=== PATIENT | female | born 1945 | race Caucasian/White ===

== ENCOUNTER 2016-05-09 10:57 | Emergency (ER) | payer MEDICARE, OTHER ==
[~2016-05-09] VITALS: Ht 157.5 cm; Wt 116.9 kg
[~2016-05-09 10:57] MED LIST: AMT100 PO; CHOL5000 PO; CHRO500T5 PO; CINN500T PO; SYN125 PO; [UNRECOGNIZED DRUG - CODE] PO
[2016-05-09 11:02] VITALS: TEMP 36.6; Ht 157.5 cm; Wt 116.9 kg
[2016-05-09 11:25] VITALS: O2SAT 96
[2016-05-09] MEDS ORDERED: CHOL1TAB PO (12:04)
[2016-05-09 12:16] LABS: BASO % 0.2 %; BASO ABS # 0.02 K/uL (0-0.2); COMPLETE YES; EOS % 2.6 %; HEMATOCRIT 48.6 % (37-47); IG% 0.3 %; LYMPH % 29.9 %; LYMPH ABS # 2.83 K/uL (1.2-3.4); MEAN CELL VOLUME 89.2 fL (80-100); MEAN CORPUSCULAR HGB CONC 32.5 g/dl (32-36); MEAN PLATELET VOLUME 11.2 fL (7.4-10.4); MONO % 5.7 %; NEUT % 61.3 %; PLATELET COUNT 213 K/uL (130-400); RED BLOOD COUNT 5.45 M/uL (4.2-5.4); WHITE BLOOD COUNT 9.47 K/uL (4.8-10.8)
[2016-05-09 12:51] LABS: ALKALINE PHOSPHATASE 143 U/L (45-117); ALT/SGPT 67 U/L (12-78); BLOOD UREA NITROGEN 6 mg/dl (7-18); BUN/CREATININE RATIO 7.4 (10-20); CALCIUM 9.2 mg/dl (8.5-10.1); CARBON DIOXIDE 29 mmol/L (21-32); CHLORIDE 107 mmol/L (98-107); CREATININE 0.83 mg/dl (0.60-1.20); GLUCOSE 137 mg/dl (70-99); SODIUM 145 mmol/L (136-145)
--- NOTE | 2016-05-09 13:03 | DIAGNOSTIC IMAGING REPORT ---
CHEST 2 VIEWS ROUTINE CLINICAL HISTORY: Cough COMPARISON STUDY: 04/27/2013 FINDINGS: The heart is at the upper limits of normal in size. There is mild interstitial thickening a finding which may be in part accentuated due to the patient's large body habitus. There are no pleural effusions. There is no overt failure. Slight indistinctness left heart border remains unchanged the prior study and is likely secondary to a prominent fat pad.[ IMPRESSION: Mild chronic interstitial thickening. No evidence of lobar consolidation Electronically signed by: Josue Domingo M.D. 05/09/2016 1:01 PM Dictated Date/Time: 05/09/2016 1:00 PM
--- NOTE | 2016-05-09 13:27 | DIAGNOSTIC IMAGING REPORT ---
BILATERAL LOWER EXTREMITY VENOUS DOPPLER HISTORY: Pain. Edema. leg swelling eval for dv COMPARISON STUDY: 04/27/2013 FINDINGS: There is normal compressibility, flow, and augmentation within the bilateral lower extremity deep venous systems. IMPRESSION: No DVT within the right or left lower extremity. Electronically signed by: Pacheco Calderón M.D. 05/09/2016 1:25 PM Dictated Date/Time: 05/09/2016 1:22 PM
[2016-05-09 14:06] LABS: POTASSIUM 3.7 mmol/L (3.5-5.1)
[2016-05-09 14:33] LABS: PARTIAL THROMBOPLASTIN RATIO 1.1; PROTHROMBIN TIME (PATIENT) 10.6 SECONDS (9.0-12.0)
--- NOTE | 2016-05-09 14:57 | DIAGNOSTIC IMAGING REPORT ---
CT ANGIOGRAM OF THE CHEST CLINICAL HISTORY: Shortness of breath. COMPARISON STUDY: 04/28/2013 TECHNIQUE: Following the IV administration of 93 mL of Optiray-320, CT angiogram of the thorax was performed from the thoracic inlet to the lung bases utilizing the pulmonary embolus protocol. Images are reviewed in the axial, sagittal, and coronal planes. IV contrast was administered without complication. MIP imaging was performed. CT DOSE: 617.74 mGycm FINDINGS: Mediastinal and left hilar lymph nodes are the upper limits of normal in size. Left axillary lymph nodes are at the upper limits of normal in size. There was no evidence of thoracic aortic dilatation. There were no pulmonary artery filling defects to indicate acute pulmonary embolism. No pleural effusions are visualized. There is no evidence of focal pulmonary consolidation. There is a stable 3 mm right lower lobe pulmonary nodule. There is mild hepatic steatosis. IMPRESSION: 1. No evidence of acute pulmonary embolism. 2. No evidence of focal pulmonary consolidation. Electronically signed by: Josue Domingo M.D. 05/09/2016 2:56 PM Dictated Date/Time: 05/09/2016 2:42 PM
[2016-05-09] MEDS ORDERED: CEPH500C PO (15:16)
[2016-05-09 15:24] VITALS: BP 190/87; PULSE 72; O2SAT 94
--- NOTE | 2016-05-09 17:21 | EMERGENCY ROOM VISIT NOTE ---
History Report prepared by Don[place]on: Margarita Lopez Under the Supervision of: Dr. Lane Palacios M.D. First contact with patient: 11:44 Chief Complaint: SWELLING TO EXTREMITY Stated Complaint: SWELLING TO FEET/LEGS, ANXIETY ATTACK, NOT VOIDING Nursing Triage Summary: Relates that this is her second bout of bronchitis History of Present Illness The patient is a 71 year old female who presents to the Emergency Room with complaints of worsening bilateral lower extremity swelling that began a couple of days ago. The patient notes that she has some bilateral leg swelling at baseline, but it has been worse for the past 2 days. She states that she has been in the sitting position more than usual for the past few days and has not gotten much of a chance to elevate her legs. In addition to the swelling, she complains of circumferential pain from her feet extending up to her mid thigh. Since January, she has had two bouts of bronchitis and has had a lingering productive cough with shortness of breath. She was on Zithromax 3 or 4 weeks ago. Her shortness of breath have not gotten any worse in the past several days. The patient has a history of a PE 3 years ago after she broke her left ankle. She has had some baseline redness around her ankles since that time. She was on anticoagulants for 8 months but is not on anything currently. This morning when she woke up, she had an anxiety attack that lasted about 2 hours while she was trying to rest before resolving. Currently, she is not feeling anxious, depressed, or suicidal. Denies fever, chest pain, or other complaints. She does not have a history of heart failure or heart disease. The patient called Dr. Palomares's office today and was referred to the ED due to her symptoms. Source of History: patient Onset: a couple days ago Position: leg (bilateral) Quality: other (swelling) Timing: worsening Modifying Factors (Worsening): other (sitting) Associated Symptoms: + SOB, + cough, No chest pain, No fevers Note: Other symptoms: bilateral leg pain, anxiety attack (resolved) Review of Systems See HPI for pertinent positives & negatives. A total of 10 systems reviewed and were otherwise negative. Past Medical & Surgical Medical Problems: (1) Fibromyalgia (2) PE (pulmonary embolism) Surgical Problems: (1) H/O tubal ligation (2) History of cholecystectomy Family History Diabetes mellitus FHx: gallbladder disease Social History Smoking Status: Never Smoker Marital Status: Housing Status: lives with significant other Occupation Status: employed Current/Historical Medications Scheduled Amitriptyline Hcl (Elavil *), 100 MG PO HS Cephalexin Monohydrate (Keflex), 500 MG PO QID Cholecalciferol (D-3-5), 1 CAP PO HS Cholecalciferol (Vitamin D-3), Unknown Dose PO QPM Chromium Picolinate (Chromium Picolinate), 1 TAB PO BID Cinnamon (Cinnamon), 1,000 MG PO HS Glucosamine Hcl-Methylsulfonyl (Sm Glucosamine Hcl & Msm), 2 TAB PO BID Levothyroxine Sodium (Synthroid), 1 TAB PO QAM Allergies Coded Allergies: Benzalkonium Chloride (Verified Allergy, Unknown, CONTACT SWELLING/PAIN, ) Codeine (Verified Allergy, Unknown, GALLBLADDER ATTACK LIKE SYMPTOMS, 05/09) Dextromethorphan (Verified Allergy, Unknown, ITCHY, 05/09/16) Latex (Verified Allergy, Unknown, CONTACT DERMATITIS/WELTS, 05/09/16) Nickel (Verified Allergy, Unknown, BOILS, 05/09/16) PATIENT REPORTS ALLERGIC TO A LOT OF METALS - BOILS REACTION Tetanus Toxoid (Verified Allergy, Unknown, UNCONSCIOUSNESS, 05/09/16) Thimerosal (Verified Allergy, Unknown, EYE SWELLING/PAIN, 05/09/16) Perservative in flu vaccines and eye drops Morphine and Related (Verified Adverse Reaction, Intermediate, PAIN/ PROJECTILE VOMITTING, 05/09/16) Influenza Vaccines (Verified Adverse Reaction, Unknown, Avoids secondary to thimerosal allergy, 05/09/16) Promethazine (Verified Adverse Reaction, Unknown, CONFUSION/DISORIENTED, ) Silver Sulfadiazine (Verified Adverse Reaction, Unknown, BOILS, 05/09/16) Sulfa Drugs (Verified Adverse Reaction, Unknown, BLISTERS?, 05/09/16) Uncoded Allergies: Carmen (Allergy, Unknown, Boils, 01/10/16) Surgical carmen Physical Exam Vital Signs Date Time Temp Pulse Resp B/P Pulse Ox O2 Delivery O2 Flow Rate FiO2 05/09/16 15:24 72 18 190/87 94 Room Air 05/09/16 14:17 72 05/09/16 14:00 72 20 202/86 91 Room Air 05/09/16 12:00 75 20 169/83 92 Room Air 05/09/16 11:29 85 05/09/16 11:27 78 22 189/93 93 Room Air 05/09/16 11:25 94 Room Air 05/09/16 11:25 96 Room Air 05/09/16 11:02 36.6 78 20 186/82 91 Room Air Physical Exam Constitutional: Vital signs reviewed. Eyes: Pupils are equal round reactive to light. Conjunctiva are noninjected. ENT: Pharynx is clear without erythema or exudate. Mucous membranes are moist. Neck supple without meningeal signs. Respiratory: Clear to auscultation bilaterally. Breath sounds are equal bilaterally. Cardiovascular: Regular rate and rhythm. No rubs or gallops. GI: Soft, nondistended and nontender. Bowel sounds are present. Musculoskeletal: Bilateral lower extremity edema. Normal capillary refill. Chronic discoloration of the ankles. No significant tenderness. Increased warmth to the ankles. Integumentary: No cyanosis. Neurological: The patient is awake and alert. No focal deficits. Psychiatric: Normal affect. Medical Decision & Procedures ER Provider Diagnostic Interpretation: Radiology results as stated below per my review and the radiologist's interpretation: CHEST 2 VIEWS ROUTINE CLINICAL HISTORY: Cough COMPARISON STUDY: 04/27/2013 FINDINGS: The heart is at the upper limits of normal in size. There is mild interstitial thickening a finding which may be in part accentuated due to the patient's large body habitus. There are no pleural effusions. There is no overt failure. Slight indistinctness left heart border remains unchanged the prior study and is likely secondary to a prominent fat pad.[ IMPRESSION: Mild chronic interstitial thickening. No evidence of lobar consolidation Electronically signed by: Josue Domingo M.D. 05/09/2016 1:01 PM Dictated Date/Time: 05/09/2016 1:00 PM BILATERAL LOWER EXTREMITY VENOUS DOPPLER HISTORY: Pain. Edema. leg swelling eval for dv COMPARISON STUDY: 04/27/2013 FINDINGS: There is normal compressibility, flow, and augmentation within the bilateral lower extremity deep venous systems. IMPRESSION: No DVT within the right or left lower extremity. Electronically signed by: Pacheco Calderón M.D. 05/09/2016 1:25 PM Dictated Date/Time: 05/09/2016 1:[address] ANGIOGRAM OF THE CHEST CLINICAL HISTORY: Shortness of breath. COMPARISON STUDY: 04/28/2013 TECHNIQUE: Following the IV administration of 93 mL of Optiray-320, CT angiogram of the thorax was performed from the thoracic inlet to the lung bases utilizing the pulmonary embolus protocol. Images are reviewed in the axial, sagittal, and coronal planes. IV contrast was administered without complication. MIP imaging was performed. CT DOSE: 617.74 mGycm FINDINGS: Mediastinal and left hilar lymph nodes are the upper limits of normal in size. Left axillary lymph nodes are at the upper limits of normal in size. There was no evidence of thoracic aortic dilatation. There were no pulmonary artery filling defects to indicate acute pulmonary embolism. No pleural effusions are visualized. There is no evidence of focal pulmonary consolidation. There is a stable 3 mm right lower lobe pulmonary nodule. There is mild hepatic steatosis. IMPRESSION: 1. No evidence of acute pulmonary embolism. 2. No evidence of focal pulmonary consolidation. Electronically signed by: Josue Domingo M.D. 05/09/2016 2:56 PM Dictated Date/Time: 05/09/2016 2:42 PM Laboratory Results 05/09/16 11:45 Red Blood Count 5.45, Mean Corpuscular Volume 89.2, Mean Corpuscular Hemoglobin 29.0, Mean Corpuscular Hemoglobin Concent 32.5, Mean Platelet Volume 11.2, Neutrophils (%) (Auto) 61.3, Lymphocytes (%) (Auto) 29.9, Monocytes (%) (Auto) 5.7, Eosinophils (%) (Auto) 2.6, Basophils (%) (Auto) 0.2, Neutrophils # (Auto) 5.80, Lymphocytes # (Auto) 2.83, Monocytes # (Auto) 0.54, Eosinophils # (Auto) 0.25, Basophils # (Auto) 0.02 05/09/16 11:45 05/09/16 13:40 Test 05/09/16 11:45 05/09/16 13:40 05/09/16 14:15 White Blood Count 9.47 K/uL (4.8-10.8) Red Blood Count 5.45 M/uL (4.2-5.4) Hemoglobin 15.8 g/dL (12.0-16.0) Hematocrit 48.6 % (37-47) Mean Corpuscular Volume 89.2 fL (80-100) Mean Corpuscular Hemoglobin 29.0 pg (25-34) Mean Corpuscular Hemoglobin Concent 32.5 g/dl (32-36) Platelet Count 213 K/uL (130-400) Mean Platelet Volume 11.2 fL (7.4-10.4) Neutrophils (%) (Auto) 61.3 % Lymphocytes (%) (Auto) 29.9 % Monocytes (%) (Auto) 5.7 % Eosinophils (%) (Auto) 2.6 % Basophils (%) (Auto) 0.2 % Neutrophils # (Auto) 5.80 K/uL (1.4-6.5) Lymphocytes # (Auto) 2.83 K/uL (1.2-3.4) Monocytes # (Auto) 0.54 K/uL (0.11-0.59) Eosinophils # (Auto) 0.25 K/uL (0-0.5) Basophils # (Auto) 0.02 K/uL (0-0.2) RDW Standard Deviation 46.9 fL (36.4-46.3) RDW Coefficient of Variation 14.4 % (11.5-14.5) Immature Granulocyte % (Auto) 0.3 % Immature Granulocyte # (Auto) 0.03 K/uL (0.00-0.02) Anion Gap 9.0 mmol/L (3-11) Est Creatinine Clear Calc Drug Dose 76.5 ml/min Estimated GFR () 82.8 Estimated GFR (Non- 71.4 BUN/Creatinine Ratio 7.4 (10-20) Calcium Level 9.2 mg/dl (8.5-10.1) Total Bilirubin 0.4 mg/dl (0.2-1) Alanine Aminotransferase (ALT/SGPT) 67 U/L (12-78) Alkaline Phosphatase 143 U/L (45-117) Troponin I < 0.015 ng/ml (0-0.045) Total Protein 7.2 gm/dl (6.4-8.2) Albumin 3.2 gm/dl (3.4-5.0) Direct Bilirubin 0.1 mg/dl (0-0.2) Aspartate Amino Transf (AST/SGOT) 54 U/L (15-37) Prothrombin Time 10.6 SECONDS (9.0-12.0) Prothromb Time International Ratio 1.0 (0.9-1.1) Activated Partial Thromboplast Time 27.3 SECONDS (21.0-31.0) Partial Thromboplastin Ratio 1.1 Laboratory results as reviewed by me. ECG Indication: SOB/dyspnea Rate (beats per minute): 74 Rhythm: normal sinus Findings: no acute ischemic change, no ectopy ED Course 1148: The patient was evaluated in room A11. A complete history and physical exam was performed. 1514: Upon reevaluation, the patient was resting comfortably. I discussed tonight's findings with the patient. She verbalized agreement of the treatment plan. The patient was discharged home. Medical Decision This is a 71-year-old female who presents with swelling in her legs, anxiety and some shortness of breath. Differential diagnosis includes dependent edema, CHF, anemia, DVT, pulmonary embolism, bronchitis, pneumonia. I did perform a limited focused review of portions of the patient's old chart on the electronic medical record. She had blood work on 05/03 which showed a hemoglobin of 16 and slight elevation of LVTs. I did evaluate the patient as noted above. The patient is presenting with increased swelling in her legs. She has a history of swelling to the legs but states he got worse after she was sitting down for the past 2 days doing her taxes. She also complains of some pain around her ankles. She does have some increased warmth as well as erythema to the ankles but she states that she normally has chronic discoloration to the ankles and the erythema is not new. She complains of shortness of breath but states that she has had bronchitis for months and feels that the shortness of breath is from that. She denies any chest pain. She did have an anxiety attack earlier but states that has resolved. IV access was established. The patient was placed on a continuous lead programmer. I did order and personally review the patient's 12-lead EKG and chest x-ray as described above. I did order and review the patient's blood work as noted in the electronic medical record. Troponin is negative. I did order Doppler ultrasounds of lower extremities. There is no evidence of DVT. Due to her history of prior PE and her shortness of breath, I did order a CT of the chest. I did review the images myself as well as the radiology report as described above. There is no evidence of pulmonary embolism. I did discuss the test results with the patient. I did recommend elevation of the legs. She states she cannot use compression stockings because of her latex allergy. I did advise she follow closely with her doctor within 48 hours for recheck. She may require diuretic at a later point if her swelling does not decrease. She was also given a prescription for Keflex for possible cellulitis to her legs. Although she stated that the discoloration to her legs was chronic, there was definitely increased warmth to that area. She was discharged in good condition. Impression Primary Impression: Lower extremity edema Additional Impressions: Bronchitis Lower extremity cellulitis Scribe Attestation The scribe's documentation has been prepared under my direct and personally reviewed by me in its entirety. I confirm that the note above accurately reflects all work, treatment, procedures, and medical decision making performed by me. Departure Information Dispostion Home / Self-Care Prescriptions Cephalexin Monohydrate (Keflex) 500 Mg Cap 500 MG PO QID, #28 CAP Prov: Lane Palacios M.D. 05/09/16 Referrals Eddie Palomares M.D.([facility]) (PCP) Patient Instructions ED Leg Swelling Bilateral, My [facility] Additional Instructions You have been examined and treated today on an emergency basis only. This is not a substitute for, or an effort to provide, complete comprehensive medical care. It is impossible to recognize and treat all injuries or illnesses in a single emergency department visit. It is therefore important that you follow up closely with your physician in 48 hours. Call as soon as possible for an appointment. Return for worsening symptoms or if you develop fever, vomiting, chest pain or any other concerning symptoms. Problem Qualifiers Primary Impression: Lower extremity edema Laterality: bilateral Qualified Codes: R60.0 - Localized edema Additional Impressions: Lower extremity cellulitis Laterality: unspecified laterality Qualified Codes: L03.119 - Cellulitis of unspecified part of limb
[2016-07-15] MEDS ORDERED: MTR600X PO (11:21)
== END 2016-05-09 15:37 | disposition home or self-care (01) ==
LOC: C.EDB 11:00 → C.EDA 15:37
DX: R60.0 Localized edema (principal); J40 Bronchitis, not specified as acute or chronic; L03.119 Cellulitis of unspecified part of limb; M79.7 Fibromyalgia; Z86.711 Personal history of pulmonary embolism; Z83.3 Family history of diabetes mellitus

== ENCOUNTER 2016-07-14 05:29 | Observation (INO) | payer MEDICARE, OTHER ==
[2016-05-03 12:52] VITALS: BMI 46.0
--- NOTE | 2016-05-03 13:34 | PAT Medication Instructions ---
Service Date May 03, 2016. Current Home Medication List Amitriptyline Hcl (Elavil *), 100 MG PO HS Cholecalciferol (D-3-5), 1 CAP PO HS Chromium Picolinate (Chromium Picolinate), 1 TAB PO BID Cinnamon (Cinnamon), 1,000 MG PO HS Glucosamine Hcl-Methylsulfonyl (Sm Glucosamine Hcl & Msm), 2 TAB PO BID Levothyroxine Sodium (Synthroid), 1 TAB PO QAM Medication Instructions For Your Scheduled Surgery - Hold the following medications starting 05/04/16: Cinnamon (Cinnamon), 1,000 MG PO HS Glucosamine Hcl-Methylsulfonyl (Sm Glucosamine Hcl & Msm), 2 TAB PO BID - Hold the following medications the morning of surgery: Chromium Picolinate (Chromium Picolinate), 1 TAB PO BID - Take the following medications the morning of surgery with a sip of water: Levothyroxine Sodium (Synthroid), 1 TAB PO QAM - Take the following medications as scheduled the night before surgery: Amitriptyline Hcl (Elavil *), 100 MG PO HS Cholecalciferol (D-3-5), 1 CAP PO HS Chromium Picolinate (Chromium Picolinate), 1 TAB PO BID If you have any questions please call us at [phone] (Roberta Mcdonald PA-C) or [phone] or [phone]
[2016-05-03 14:25] LABS: BASO % 0.2 %; BASO ABS # 0.02 K/uL (0-0.2); COMPLETE YES; EOS % 2.8 %; HEMATOCRIT 49.1 % (37-47); IG% 0.3 %; LYMPH % 33.8 %; LYMPH ABS # 3.34 K/uL (1.2-3.4); MEAN CORPUSCULAR HEMOGLOBIN 29.2 pg (25-34); MEAN CORPUSCULAR HGB CONC 33.2 g/dl (32-36); MEAN PLATELET VOLUME 11.3 fL (7.4-10.4); MONO % 6.6 %; NEUT % 56.3 %; PLATELET COUNT 192 K/uL (130-400); RED BLOOD COUNT 5.58 M/uL (4.2-5.4); WHITE BLOOD COUNT 9.88 K/uL (4.8-10.8)
[2016-05-03 14:46] LABS: BUN/CREATININE RATIO 12.2 (10-20); CALCIUM 9.5 mg/dl (8.5-10.1); CREATININE 0.78 mg/dl (0.60-1.20); POTASSIUM 3.7 mmol/L (3.5-5.1)
[2016-05-03 14:49] LABS: ALB/GLOB RATIO 0.9 (0.9-2)
[2016-06-21 14:04] VITALS: BMI 47.0
--- NOTE | 2016-06-21 15:13 | PAT Medication Instructions ---
Service Date June 21, 2016. Current Home Medication List Amitriptyline Hcl (Elavil *), 100 MG PO HS Cholecalciferol (D-3-5), 1 CAP PO HS Chromium Picolinate (Chromium Picolinate), 1 TAB PO BID Cinnamon (Cinnamon), 1,000 MG PO HS Glucosamine Hcl-Methylsulfonyl (Sm Glucosamine Hcl & Msm), 2 TAB PO QPM Levothyroxine Sodium (Synthroid), 1 TAB PO QAM Medication Instructions For Your Scheduled Surgery - Hold the following medications 2 weeks prior to surgery: Cinnamon (Cinnamon), 1,000 MG PO HS Glucosamine Hcl-Methylsulfonyl (Sm Glucosamine Hcl & Msm), 2 TAB PO QPM - Hold the following medications the morning of surgery: Chromium Picolinate (Chromium Picolinate), 1 TAB PO BID - Take the following medications the morning of surgery with a sip of water: Levothyroxine Sodium (Synthroid), 1 TAB PO QAM - Take the following medications as scheduled the night before surgery: Amitriptyline Hcl (Elavil *), 100 MG PO HS Cholecalciferol (D-3-5), 1 CAP PO HS Chromium Picolinate (Chromium Picolinate), 1 TAB PO BID If you have any questions please call us at [phone] (Roberta Mcdonald PA-C) or [phone] or [phone]
[2016-06-21 15:18] LABS: BASO % 0.2 %; BASO ABS # 0.02 K/uL (0-0.2); COMPLETE YES; EOS % 3.3 %; HEMATOCRIT 49.8 % (37-47); IG% 0.3 %; LYMPH % 35.9 %; LYMPH ABS # 3.25 K/uL (1.2-3.4); MEAN CELL VOLUME 90.1 fL (80-100); MEAN CORPUSCULAR HEMOGLOBIN 29.3 pg (25-34); MEAN CORPUSCULAR HGB CONC 32.5 g/dl (32-36); MONO % 5.2 %; NEUT % 55.1 %; PLATELET COUNT 192 K/uL (130-400); RED BLOOD COUNT 5.53 M/uL (4.2-5.4); WHITE BLOOD COUNT 9.06 K/uL (4.8-10.8)
[2016-06-21 15:25] LABS: BUN/CREATININE RATIO 12.3 (10-20); CALCIUM 9.6 mg/dl (8.5-10.1); CREATININE 0.78 mg/dl (0.60-1.20); POTASSIUM 4.1 mmol/L (3.5-5.1)
[2016-06-21 15:27] LABS: ALB/GLOB RATIO 0.9 (0.9-2)
[2016-07-14] VITALS (10 sets, daily range): BP systolic 118–202; BP diastolic 65–95; PULSE 58–93; TEMP 36.2–36.9; O2SAT 88–98; Ht 154.9 cm; Wt 113.8 kg
[~2016-07-14] VITALS: Ht 154.9 cm; Wt 113.8 kg
[~2016-07-14 05:29] MED LIST changes: +CEFAZOLIN 3000 MG/65 ML D5W 50 ML IV SCH; +ENOXAPARIN 40 MG/0.4 ML SYR SQ SCH; +LACTATED RINGER'S 1000ML 1,000 ML IV SCH
[2016-07-14] MEDS ORDERED: CEFAZOLIN 3000 MG/65 ML D5W 50 ML IV SCH (06:00)
[2016-07-14] MEDS ORDERED: LACTATED RINGER'S 1000ML 1,000 ML IV SCH ×3 (06:00→10:43)
[2016-07-14] MEDS ORDERED: ENOXAPARIN 40 MG/0.4 ML SYR SQ SCH (06:00)
[2016-07-14] MEDS ORDERED: CHOL1000 PO (06:01)
[2016-07-14] MEDS ORDERED: ROCURONIUM BROMIDE 10 MG/ML 5 ML VIAL ONE ×2 (06:36→07:41)
[2016-07-14] MEDS ORDERED: NEOSTIGMINE METHYLSULFATE 5 MG/5 ML SYR ONE (06:36)
[2016-07-14] MEDS ORDERED: ONDANSETRON INJ 2 MG/ML 2 ML VIAL ONE (06:36)
[2016-07-14] MEDS ORDERED: LIDOCAINE HCL 2% 2 ML VIAL (20MG/ML) ONE (06:36)
[2016-07-14] MEDS ORDERED: PROPOFOL IV EMULSION 10 MG/ML 20 ML VIAL IV ONE ×2 (06:36→07:41)
[2016-07-14] MEDS ORDERED: DEXAMETHASONE SOD INJ 4 MG/ML VIAL ONE (06:36)
[2016-07-14] MEDS ORDERED: GLYCOPYRROLATE INJ 0.2 MG/ML VIAL ONE ×2 (06:36→06:46)
[2016-07-14] MEDS ORDERED: FENTANYL CITRATE INJ 50 MCG/1 ML 2 ML VIAL ONE ×2 (06:37→11:06)
[2016-07-14] MEDS ORDERED: MIDAZOLAM HCL 1 MG/ML 2ML VIAL ONE (06:37)
--- NOTE | 2016-07-14 06:46 | History & Physical Bridge Note ---
H&P Re-Evaluation Bridge Note: I have examined the patient, reviewed the History & Physical and in the interval since the performance of the History & Physical I have noted the following changes of clinical significance: No changes noted
[2016-07-14] MEDS ORDERED: HYDROmorphone INJ 2 MG/ML SYR/VIAL ONE (06:47)
[2016-07-14] MEDS ORDERED: MINERAL OIL LIGHT 10 ML BTL ONE (07:00)
[2016-07-14] MEDS ORDERED: LIDOCAINE HCL 1% 20 ML VIAL ONE (07:00)
[2016-07-14] MEDS ORDERED: METHYLENE BLUE 0.5% 10 ML VIAL ONE ×2 (07:00→11:10)
[2016-07-14] MEDS ORDERED: EpHEDrine SULFATE 50MG/5ML SYR ONE (08:19)
[2016-07-14] MEDS ORDERED: ONDANSETRON INJ 2 MG/ML 2 ML VIAL IV PRN ×2 (08:45→10:45)
[2016-07-14] MEDS ORDERED: HYDROmorphone INJ 2 MG/ML SYR/VIAL IV PRN (08:45)
[2016-07-14] MEDS ORDERED: KETOROLAC TROMETHAMINE 30 MG/ML VIAL IV. PRN (08:45)
[2016-07-14] MEDS ORDERED: ATROPINE SULFATE 0.1 MG/ML 5ML SYR IV PRN (08:45)
[2016-07-14] MEDS ORDERED: LABETALOL HCL IV 5 MG/ML 20ML IV PRN (08:45)
[2016-07-14] MEDS ORDERED: ALBUTEROL HFA INHALER 8.5 GM INH ONE (09:44)
[2016-07-14] MEDS ORDERED: ACETAMINOPHEN 325 MG TAB PO PRN (10:45)
[2016-07-14] MEDS ORDERED: ZOLPIDEM TARTRATE 5 MG TAB PO PRN (10:45)
[2016-07-14] MEDS ORDERED: MAGNESIUM HYDROXIDE SUSP 30 ML UDC PO PRN (10:45)
[2016-07-14] MEDS ORDERED: BISACODYL 10 MG SUPP PR PRN (10:45)
[2016-07-14] MEDS ORDERED: KETOROLAC TROMETHAMINE 30 MG/ML VIAL ONE (10:57)
--- NOTE | 2016-07-14 11:19 | Anesthesiology Progress Note ---
Anesthesia Post Op Note Date & Time July 14, 2016 at 11:19 Vital Signs Pain Intensity: 4 Vital Signs Past 12 Hours Date Time Temp Pulse Resp B/P Pulse Ox O2 Delivery O2 Flow Rate FiO2 07/14/16 11:00 60 10 153/75 93 Nasal Cannula 4 07/14/16 10:50 65 10 149/74 96 Nasal Cannula 4 07/14/16 10:40 76 12 149/75 94 Mask 10 07/14/16 10:30 75 15 151/72 96 Mask 10 07/14/16 10:22 36.6 82 16 138/64 97 Mask 10 07/14/16 05:50 36.9 77 20 202/95 91 Room Air Notes Mental Status: alert / awake / arousable, participated in evaluation Pt Amnestic to Procedure: Yes Nausea / Vomiting: adequately controlled Pain: adequately controlled Airway Patency, RR, SpO2: stable & adequate BP & HR: stable & adequate Hydration State: stable & adequate Anesthetic Complications: no major complications apparent
[2016-07-14] MEDS ORDERED: IV FLUIDS COMPLETED PRN (11:30)
[2016-07-14] MEDS: IBUPROFEN 600 MG TAB PO PRN ×2 (12:57→20:06)
--- NOTE | 2016-07-14 14:15 | [facility] Post Operative Brief Note ---
Immediate Operative Summary Operative Date July 14, 2016. Pre-Operative Diagnosis Atypical Endometrial Hyperplasia Post-Operative Diagnosis Atypical Endometrial Hyperplasia Morbid obesity Procedure(s) Performed Total Laparoscopic Hysterectomy with Bilateral Salpingo-oophorectomy and Cystoscopy Surgeon Dr. Lacy Munoz Datastage Architect Surgeon(s) Dr. Foster Stahl Estimated Blood Loss 60ml Findings dictated Fluids (cc crystalloids) 1200 Specimens A. Cervix and Uterus B. Left Fallopian Tube and Ovary C. Right Fallopian Tube and Ovary Drains starr catth Anesthesia GET Complication(s) None Disposition Recovery Room / PACU
[2016-07-14] MEDS: SIMETHICONE 80 MG CHEW PO PRN (20:07)
[2016-07-14 20:52] LABS: HEMATOCRIT 43.6 % (37-47)
[2016-07-14] MEDS ORDERED: AMITRIPTYLINE HCL 100 MG TAB PO SCH (21:00)
[2016-07-14] MEDS ORDERED: LEVOTHYROXINE 125 MCG TAB PO SCH (21:00)
[2016-07-14] MEDS: DOCUSATE SODIUM 100 MG CAP PO SCH (21:55)
[2016-07-15 03:50] VITALS: BP 125/72; PULSE 67; TEMP 36.6; O2SAT 83; O2SAT 89; O2SAT 93
[2016-07-15 06:25] LABS: BASO % 0.1 %; BASO ABS # 0.01 K/uL (0-0.2); COMPLETE YES; HEMATOCRIT 46.4 % (37-47); IG% 0.3 %; LYMPH % 15.3 %; MEAN CELL VOLUME 88.9 fL (80-100); MEAN CORPUSCULAR HEMOGLOBIN 28.4 pg (25-34); MEAN CORPUSCULAR HGB CONC 31.9 g/dl (32-36); MEAN PLATELET VOLUME 10.8 fL (7.4-10.4); MONO % 5.7 %; NEUT % 78.6 %; PLATELET COUNT 232 K/uL (130-400); RED BLOOD COUNT 5.22 M/uL (4.2-5.4); WHITE BLOOD COUNT 15.72 K/uL (4.8-10.8)
[2016-07-15 06:55] LABS: CALCIUM 8.7 mg/dl (8.5-10.1); CREATININE 0.88 mg/dl (0.60-1.20); POTASSIUM 4.4 mmol/L (3.5-5.1)
[2016-07-15 07:45] VITALS: BP 124/61; PULSE 61; TEMP 36.6; O2SAT 93
[2016-07-15] MEDS ORDERED: ENOXAPARIN 40 MG/0.4 ML SYR SQ SCH (09:00)
[2016-07-15] MEDS: SIMETHICONE 80 MG CHEW PO PRN (09:15)
[2016-07-15] MEDS: DOCUSATE SODIUM 100 MG CAP PO SCH (09:15)
--- NOTE | 2016-07-15 11:20 | Surgery Progress Note ---
Surgery Progress Note Date of Service July 15, 2016. 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 Confirmed by nurse Objective Vital Signs: Date Time Temp Pulse Resp B/P Pulse Ox O2 Delivery O2 Flow Rate FiO2 07/15/16 07:45 36.6 61 20 124/61 93 Room Air 07/15/16 07:45 93 Room Air 07/15/16 03:50 93 Nasal Cannula 2.0 07/15/16 03:50 89 Room Air 07/15/16 03:50 36.6 67 16 125/72 83 Room Air 07/14/16 23:20 36.9 72 18 126/76 91 Room Air 07/14/16 23:20 Room Air 07/14/16 20:10 36.7 93 20 118/73 91 Room Air 07/14/16 16:30 36.6 91 20 127/65 93 Room Air 07/14/16 16:30 93 Room Air 07/14/16 14:44 36.3 72 16 129/79 88 Nasal Cannula 1.0 07/14/16 13:51 Nasal Cannula 1.0 07/14/16 13:45 36.2 74 16 136/72 93 Nasal Cannula 2.0 07/14/16 12:45 36.5 71 16 145/83 93 Nasal Cannula 2.0 07/14/16 12:15 36.4 68 12 150/83 92 Nasal Cannula 2.0 07/14/16 11:45 36.4 58 12 140/88 98 Nasal Cannula 2.0 07/14/16 11:40 97 Nasal Cannula 4.0 07/14/16 11:40 97 Nasal Cannula 4.0 07/14/16 11:30 71 14 144/68 94 Nasal Cannula 4 07/14/16 11:20 36.0 68 11 161/76 92 Nasal Cannula 4 General Appearance: WD/WN, no apparent distress Head: normocephalic, atraumatic Neck: supple, no adenopathy, thyroid normal, no JVD, no carotid bruits, trachea midline Respiratory/Chest: chest non-tender, lungs clear, normal breath sounds, no respiratory distress, no accessory muscle use Cardiovascular: regular rate, rhythm, no edema, no gallop, no JVD, no murmur Abdomen: normal bowel sounds, non tender, non distended, soft, no organomegaly , no pulsatile mass Incision(s): clean, dry, intact, no erythema, no drainage Extremities: normal range of motion, non-tender, normal inspection, no pedal edema, no calf tenderness, normal capillary refill, pelvis stable Laboratory Results: Results Past 24 Hours Test 07/14/16 20:40 07/15/16 06:10 Range/Units Hemoglobin 14.0 14.8 12.0-16.0 g/dL Hematocrit 43.6 46.4 37-47 % White Blood Count 15.72 4.8-10.8 K/uL Red Blood Count 5.22 4.2-5.4 M/uL Mean Corpuscular Volume 88.9 80-100 fL Mean Corpuscular Hemoglobin 28.4 25-34 pg Mean Corpuscular Hemoglobin Concent 31.9 32-36 g/dl Platelet Count 232 130-400 K/uL Mean Platelet Volume 10.8 7.4-10.4 fL Neutrophils (%) (Auto) 78.6 % Lymphocytes (%) (Auto) 15.3 % Monocytes (%) (Auto) 5.7 % Eosinophils (%) (Auto) 0.0 % Basophils (%) (Auto) 0.1 % Neutrophils # (Auto) 12.37 1.4-6.5 K/uL Lymphocytes # (Auto) 2.40 1.2-3.4 K/uL Monocytes # (Auto) 0.89 0.11-0.59 K/uL Eosinophils # (Auto) 0.00 0-0.5 K/uL Basophils # (Auto) 0.01 0-0.2 K/uL RDW Standard Deviation 45.6 36.4-46.3 fL RDW Coefficient of Variation 13.9 11.5-14.5 % Immature Granulocyte % (Auto) 0.3 % Immature Granulocyte # (Auto) 0.05 0.00-0.02 K/uL Sodium Level 141 136-145 mmol/L Potassium Level 4.4 3.5-5.1 mmol/L Chloride Level 105 98-107 mmol/L Carbon Dioxide Level 28 21-32 mmol/L Anion Gap 8.0 3-11 mmol/L Blood Urea Nitrogen 10 7-18 mg/dl Creatinine 0.88 0.60-1.20 mg/dl Est Creatinine Clear Calc Drug Dose 69.7 ml/min Estimated GFR () 77.2 Estimated GFR (Non- 66.6 BUN/Creatinine Ratio 11.0 10-20 Random Glucose 154 70-99 mg/dl Calcium Level 8.7 8.5-10.1 mg/dl Assessment & Plan Postop Day #1 Total lap hys with BSO pt doing well hx of PE after knee surgery pt received Lovenox x 2 days discussed pt with Medicine - since her PE was after knee surgery and now mobile postsurgey she does not need outpatient anticoagulation pt is recommended to stay mobile and active in order to prevent another PE or DVT
[2016-07-15] MEDS ORDERED: MTR600X PO (11:21)
--- NOTE | 2016-07-15 11:23 | Discharge Instructions ---
Discharge Instructions Date of Service July 15, 2016. Admission Reason for Admission: Atypical Hyperplasia Discharge Discharge Diagnosis / Problem: postop Discharge Goals Goal(s): Routine recovery after surgery Activity Recommendations Activity Limitations: as noted below POST OPERATIVE: BOWEL FUNCTION/MEDICATIONS: 1. Constipation pain and discomfort are the most common complaints 5-7 days after surgery. Points 2-6 address the things that can help. 2. Chewing gum can help stimulate the gut and help improve digestion and motility. 3. Milk of Magnesia 1-2 times per day until return of bowel function. 4. Colace is a stool softener that helps. Taking this 2-3 times per day until bowel function returns to normal is highly recommended. 5. Dulcolax is a laxative that may be used if several days have passed without a bowel movement. Alternatively Miralax may be used daily instead. 6. Drink plenty of fluids as this will also reduce constipation. 7. Narcotic pain medications will be prescribed by your physician. They are safe to use and we encourage you to use them. If you are not allergic, ibuprofen will also be prescribed. Many patients will be able to transition off of the narcotic medications to ibuprofen by postoperative day 3. ACTIVITY RECOMMENDATIONS: 1. Get plenty of rest and listen to your body. If you are tired, take a nap. 2. You may shower, but do not take a tub bath until you see your doctor at the 2 week post operative visit. 3. Absolutely NO intercourse and nothing in the vagina until you are examined by your doctor at the 6 week visit. At that visit it will be determined when such activities can be resumed. This can range from 6-12 weeks after your surgery depending on healing time. 4. The main physical activity in the first week should be walking. By the second week you can slowly increase activity. There are no limits on walking up and down stairs. 5. Do not lift more than 5-10 lbs for 4 weeks. Remember the "one-handed rule", i.e. if you can lift something with only one hand it's likely okay. 6. Minimize apartment leasing agent like vacuuming and exercising for 4 weeks. "Overdoing it" can lead to incisions not healing, pain and vaginal bleeding , so again, listen to your body. 7. Driving can be resumed when you feel able. Do not drive within 24 hours of taking a narcotic medication. EXPECTATIONS: 1. Vaginal spotting, bleeding and discharge are common after surgery. There may even be an odor to the discharge which is often related to sutures used in the vagina. If you experience heavy vaginal bleeding, call the office number day or night 2. Bladder discomfort is common after surgery from the catheter. This usually resolves in 1-2 weeks. 3. By the end of the 3rd or 4th week you should be feeling much better. It may take up to 6 weeks for your energy levels to return to normal. 4. Narcotic medications have side effects such as: dizziness, headache, nausea and/or vomiting. If you suspect your pain medication is causing problems, call our office and we may be able to prescribe an alternate medication. 5. The skin incisions are often covered with a liquid bandage. This will gradually peel off over time. CALL THE OFFICE IF YOU HAVE ANY OF THE FOLLOWIN. Temperature of 101 degrees or higher. 2. Severe abdominal or pelvic pain not relieved by pain medication. 3. Persistent nausea or vomiting. 4. Increased pain with urination or difficulty urinating. 5. Bright red bleeding that soaks more than 1 pad per hour. CONTACT PHONE NUMBERS: Main Office: [phone] FOLLOW-UP: Post-Operative Appointments: * Individual instructions will have been given about the timing of your first examination, but this is usually at the end of the second week home. * You will need to call the office at soon after discharge to make the appointment for your post-op check-up if it has not already been scheduled. * Additional information regarding activity, sexual intercourse and when to return to work will be given at this appointment. WE WISH YOU A SPEEDY RECOVERY! . Current Hospital Diet Patient's current hospital diet: Regular Diet Discharge Diet Recommended Diet: Regular Diet Procedures Procedures Performed: Total Laparoscopic Hysterectomy with Bilateral Salpingo-oophorectomy and Cystoscopy Pending Studies Studies pending at discharge: no Medical Emergencies . Who to Call and When: Medical Emergencies: If at any time you feel your situation is an emergency, please call 911 immediately. . Non-Emergent Contact Non-Emergency issues call your: Specialist . . "Provider Documentation" section prepared by Bao Munoz. . VTE Core Measure Inpt VTE Proph given/why not?: Treatment not indicated
--- NOTE | 2016-07-15 12:09 | DISCHARGE SUMMARY ---
DATE OF DISCHARGE: 07/15/2016. CHIEF COMPLAINT: 1. Postmenopausal bleeding. 2. Atypical hyperplasia. 3. Morbid obesity. HISTORY OF PRESENT ILLNESS: This is a 71-year-old with history of postmenopausal bleeding. She had an office endometrial biopsy that showed hyperplastic cells. The patient is morbidly obese and so we decided to do a D\T\C with hysteroscopy which showed atypical endometrial hyperplasia. Decision was therefore made to perform hysterectomy. The patient was admitted at [facility] on 07/14/2016. She underwent total laparoscopic hysterectomy with bilateral salpingo-oophorectomy and cystoscopy. Surgery was unremarkable. The patient did well. Today is postop day 1 and the patient has improved remarkably. She is able to ambulate, tolerate p.o. food and meds. The patient has a history of pulmonary emboli after knee surgery 3 years ago, therefore some discussion of outpatient anticoagulant therapy. The patient did receive Lovenox preop and once again today postop day 1, she however is ambulating very well. This has been confirmed by nurse. She has no pain. I have discussed this with medicine and their recommendation is that she does not need any outpatient anticoagulation therapy since she is ambulating quite well. I am therefore discharged the patient home without any anticoagulation, but I have discussed this with the patient and she knows to continue to do ambulation to prevent another episode of DVT or PE. PAST MEDICAL HISTORY: 1. Adenomatosis polyposis of colon. 2. Carpal tunnel syndrome. 3. Concussion. 4. Hypothyroidism. 5. Myalgia. 6. History of PE. PAST SURGICAL HISTORY: 1. Cholecystectomy. 2. Tubal ligation. 3. Colonoscopy. 4. D\T\C. 5. Hysteroscopy. FAMILY HISTORY: Noncontributory. ALLERGIES: ARE QUITE NUMEROUS CODEINE, HYDROCHLORIDE, INFLUENZA VACCINE, MORPHINE, AND NICKEL. SOCIAL HISTORY: The patient denies tobacco, drug or alcohol use. REVIEW OF SYSTEMS: Unremarkable except as dictated in the HPI. PHYSICAL EXAMINATION: GENERAL: Well-developed, well-nourished white female in no acute distress. HEART: S1, S2, regular rhythm and rate. LUNGS: Clear to auscultation bilaterally. ABDOMEN: Nontender, nondistended. Incision clean, dry and intact. LABORATORY DATA: Hemoglobin is 14.8, hematocrit is 46.4, platelets is 232. VITALS TODAY: Temperature 36.6, pulse 93, blood pressure 124/61. CONDITION ON DISCHARGE: Stable. OPERATIONS: 1. Total laparoscopic hysterectomy with bilateral salpingo-oophorectomy. 2. Cystoscopy. DISCHARGE DIAGNOSIS: Postop total laparoscopic hysterectomy and cystoscopy. PLAN ON DISCHARGE: The patient is discharged home in stable condition with appointment and instructions regarding activity, diet, follow-up appointment and medications.
[2016-07-15 12:50] VITALS: BP 111/73; PULSE 69; TEMP 36.6; O2SAT 94
[2016-07-15 16:00] VITALS: BP 135/80; PULSE 73; TEMP 36.8; O2SAT 94
[2016-07-15 17:01] VITALS: BP 135/80; PULSE 73; TEMP 36.8; O2SAT 94
--- NOTE | 2016-07-18 07:04 | OPERATIVE REPORT ---
DATE OF OPERATION: 07/14/2016 INDICATION FOR PROCEDURE: This is a 71-year-old with abnormal endometrial biopsy. PREOPERATIVE DIAGNOSES: 1. Atypical endometrial hyperplasia. 2. Morbid obesity. POSTOPERATIVE DIAGNOSES: Same. PROCEDURES: 1. Total laparoscopic hysterectomy with bilateral salpingo-oophorectomy. 2. Cystoscopy. SURGEON: Bao Munoz MD STEAMER GUM CANDY: Foster Stahl DO ESTIMATED BLOOD LOSS: 50 mL. IV FLUIDS: 1200 mL. URINE OUTPUT: 300 mL. SPECIMEN: 1. Uterus with cervix. 2. Left fallopian tube and ovary. 3. Right fallopian tube and ovary. DRAINS: Garcia catheter. ANESTHESIA: General. ATTENDING FOR ANESTHESIA: Eddie Linares MD FINDINGS: Normal female escutcheon. Vulva and vagina appeared atrophic, which was appropriate for age. Cervix appears grossly normal. Abdominal findings, grossly appearing left and right ovary with tubes. Uterus is about 12 weeks size. No significant adhesions even though patient had previous surgeries. The pelvic exam is unremarkable. COMPLICATIONS: None. DISPOSITION: Stable to recovery room. PROCEDURE: The patient was taken to the operating room where a timeout was called. She was prepped and draped in normal sterile fashion in dorsal lithotomy position. A weighted speculum was placed in the vagina. A Zhou retractor was used to retract the anterior part of the vagina. Cervix was identified and a medium size VCare vaginal retractor is placed into the uterus without difficulty. Device is stabilized with sutures in the cervix. A Garcia catheter was placed in the bladder without difficulty as well. Vaginal retractors were removed from the vagina. Attention was paid to the abdominal part of the surgery where an infraumbilical incision was made and carried down to the fascia. Fascia was grabbed with 2 long Kochers. Veress needle was carefully placed in the abdomen at a 45 degree angle while tenting up the abdomen. Placement of the Veress needle was confirmed with a water-filled syringe. The abdomen was insufflated with CO2 gas of 3.5 liters. Once the abdomen had enough insufflation, the Veress needle was removed and a 10 mm trocar was carefully placed in the abdomen at a 45 degree angle while tenting up the abdomen. This was a nonbladed trocar. Intra-abdominal placement is confirmed by repositioning of the scope. Two lateral ports were also placed under direct visualization. Findings of the abdomen is as dictated above. The left and right adnexa was identified. The round ligament on the left side was identified, fulgurated and transected. The dissection was carried down through the broad ligament through the cardinal, same procedure was performed on the contralateral side. Bladder was identified and carefully dissected using a 5 mm LigaSure. The bladder was carefully dissected off the lower segment of the uterus without any complication. The dissection was carried further down after the infundibulopelvics were both identified and isolated and fulgurated. There was good hemostasis. The dissection was carried down all the way to the uterosacrals. At this point, it was very easy to see and palpate the VCare retractor. The uterus and cervix were carefully dissected off after visualization of the green colored part of the VCare, this was done circumferentially without any difficulty. The uterus was then pulled down to maintain pneumoperitoneum. At this point, the left adnexa which is the tube and ovary was identified and mesosalpinx was identified as well. The left adnexa was transected. The ureter could be seen peristalsis on that side without any difficulty. Same procedure was performed on the contralateral side. The uterus and both adnexas were removed through the vagina. A glove filled syringe was placed in the vagina to help maintain pneumoperitoneum. Copious amount of irrigation was used to irrigate the abdomen at this point. Vaginal cuff was inspected and was found to have good hemostasis. Further inspection of the abdomen showed no lesions or abnormal bleeding. More irrigation was used to irrigate the abdomen at this point. The vaginal cuff was closed with an EndoStitch, this was done in a locking fashion. There was good hemostasis at the end of the closure. Lap ties were used for tying knots. More irrigation was performed. The peritoneum was closed with running EndoStitch. Once again there was good hemostasis at end of the procedure. Attention was paid to the cystoscopy part of the procedure, where [id number] scope was placed into the bladder after the Garcia catheter was removed. There were no lesions or masses or gross hematuria seen in the bladder. The patient had early on been given methylene blue dye. Both urethral orifices were seen and there was good efflux of blue dye from both urethral openings. The scope was removed at this point. An attention paid back to the abdominal part of the procedure where the 3 incision sites were closed in 2 layers, fascia of the site was grabbed and closed with 0 Vicryl. Subcutaneous space was irrigated and closed with 2-0 plain and skin was closed with 4-0 Monocryl. All instruments were removed from the abdomen and the vagina and accounted for x2. The patient is stable in recovery. I attest to the content of the Intraoperative Record and any orders documented therein. Any exceptio ns are noted below.
== END 2016-07-15 18:45 | disposition home or self-care (01) ==
LOC: ENRESERVTM → ENRESERVDT → C.ACU 05:29 → C.MS4N 09:28 → EDBEDREQ 11:14 → EDBEDREQSVC 11:19
PROVIDERS: ADMIT Obstetrics & Gynecology; ATTEND Obstetrics & Gynecology
DX: N85.00 Endometrial hyperplasia, unspecified (principal); N95.0 Postmenopausal bleeding; E66.01 Morbid (severe) obesity due to excess calories; E03.9 Hypothyroidism, unspecified; Z90.49 Acquired absence of other specified parts of digestive tract; Z68.42 Body mass index [BMI] 45.0-49.9, adult; Z86.010 Personal history of colon polyps; Z86.711 Personal history of pulmonary embolism

== ENCOUNTER 2023-02-14 16:26 | Inpatient (IN) ==
--- NOTE | 2023-02-14 16:53 | ED Triage Note ---
Date of Service February 14, 2023 Provider in Triage Author: Jenniefr Roche History of Present Illness This patient was briefly evaluated while in triage. An abbreviated physical exam was performed. This patient is a 77-year-old Female who presents to the ED for evaluation of right ankle pain. She currently has what she believes is the flu. She has had aches and pains, fever, and vomiting. She has lymphedema in the right leg but states the leg is more swollen than usual. She took a diuretic but it is not working. Physical Exam VITALS: Vitals are noted on the nurse's note and reviewed by myself. GENERAL: This is a 77-year-old female, in no acute distress, ill-appearing SKIN: There is diffuse edema and erythema of the right lower extremity HEART: Regular rate and rhythm without murmurs gallops or rubs. LUNGS: Clear to auscultation bilaterally without wheezes, rales or rhonchi. NEURO: Patient was alert and oriented to person place and time. Initial orders for labs and / or imaging were placed and patient was placed in the waiting area until a bed is available. Please see further documentation for the full ED course. MDM / Impression Impression Impression: Lymphedema, Cellulitis of right lower extremity
[2023-02-14 17:49] LABS: Basophils # (auto) 0.06 K/uL (0.00-0.20); Basophils % (auto) 0.3 %; Hematocrit (blood only) 45.2 % (37.0-47.0); Hemoglobin 14.7 g/dl (12.0-16.0); Immature Granulocytes # (auto) 0.21 K/uL (0.01-0.20); Immature Granulocytes % (auto) 0.9 %; Lymphocytes # (auto) 3.92 K/uL (1.20-3.40); Lymphocytes % (auto) 17.5 %; Mean Corpuscular Hemoglobin 28.3 pg (25.0-34.0); Mean Corpuscular Hgb Conc 32.5 g/dL (32.0-36.0); Mean Corpuscular Volume 87.1 fL (80.0-100.0); Mean Platelet Volume 11.2 fL (9.4-12.4); Monocytes # (auto) 1.18 K/uL (0.11-0.59); Monocytes % (auto) 5.3 %; Neutrophils # (auto) 17.03 K/uL (1.40-6.50); Platelet Count 172 K/uL (130-400); RDW Coefficient of Variation 13.9 % (11.5-14.5); RDW Standard Deviation 44.5 fL (36.4-46.3); Red Blood Count 5.19 M/uL (4.20-5.40)
--- NOTE | 2023-02-14 17:51 | XRay Report ---
SINGLE VIEW CHEST CLINICAL HISTORY: Fever FINDINGS: A PA chest radiograph is compared to study dated 03/28/2021 and correlated with chest CT date d 11/11/2022. The heart is enlarged. The pulmonary vasculature is noncongested. There is mild bibasila r atelectasis. The lungs and pleural spaces are otherwise clear. No pneumothorax is seen. The skeleta l structures are osteopenic. The bony thorax is grossly intact. IMPRESSION: No active disease in the chest. ACT 112: Negative or not required by law. Electronically signed by: Juancarlos Ellsworth M.D. 02/14/2023 5:50 PM
[2023-02-14 17:55] LABS: Influenza A virus by PCR Negative (Neg); Influenza B virus by PCR Negative (Neg); RSV by PCR Negative (Neg); SARS CoV2 RNA(COVID-19) Ceph NEGATIVE (Negative)
[2023-02-14 18:05] LABS: Alanine Aminotransferase 29 U/L (7-52); Albumin Level 3.8 gm/dl (3.4-5.0); Alkaline Phosphatase 159 U/L (34-104); Anion Gap 11 (3-11); Aspartate Aminotransferase 35 U/L (13-39); BUN Creatinine Ratio 16.7 (10-20); Bilirubin,Total 1.9 mg/dl (0.2-1.0); Blood Urea Nitrogen 12 mg/dl (6-23); Calcium 9.2 mg/dl (8.6-10.3); Carbon Dioxide 23 mmol/L (21-32); Chloride 101 mmol/L (98-107); Est GFR (African American) 94.3 ml/min; Est GFR (Non-African American) 81.3 ml/min; Globulin 3.8 gm/dl (2.5-4.0); Glucose 148 mg/dl (70-99(Fasting)); Potassium 3.5 mmol/L (3.5-5.1); Sodium 135 mmol/L (136-145); Total Protein 7.6 gm/dl (6.0-8.3)
[2023-02-14 18:14] LABS: Appearance Urine Clear (Clear); Bilirubin Urine Negative (Negative); Blood Urine Negative (Negative); Color Urine Yellow; Glucose Urine UA Negative (Negative); Ketones Urine Negative (Negative); Leukocyte Esterase Urine Negative (Negative); Nitrite Urine Negative (Negative); Protein Urine Negative (Negative); Specific Gravity Urine 1.014 (1.000-1.030); Urobilinogen Urine Negative (Negative)
--- NOTE | 2023-02-14 18:52 | Ultrasound Report ---
RIGHT LOWER EXTREMITY VENOUS DOPPLER CLINICAL HISTORY: Right leg swelling. COMPARISON STUDY: Bilateral lower extremity venous Doppler ultrasound September 11, 2022. TECHNIQUE: Sonography of the deep venous system of the right lower extremity was performed. Compress ion and augmentation were evaluated. FINDINGS: The right common femoral, superficial femoral and popliteal veins were compressible. Augme ntation was normal. Flow was shown within the deep calf vessels although calf vessels were suboptimal ly assessed due to lower extremity edema. IMPRESSION: No evidence of deep venous thrombus within the right lower extremity. Calf vessels subopt imally assessed due to lower extremity edema. ACT 112: Negative or not required by law. Electronically signed by: Wilber Spaulding M.D. 02/14/2023 6:51 PM
[2023-02-14] MEDS ORDERED: CEFEPIME 2,000 MG/20 ML VIAL IV STA (20:46)
--- OUTSIDE RECORDS SUMMARY | 2023-02-14 23:20 | External Medical Summary | Summary of Care ---
Author Name Unknown Organization [facility] Address [address] [facility] [address] Phone [phone] Care Team Providers Care Public Employment Mediator Name Role Phone Dominik Camacho DO Primary Care Provider [phone] Reason for Visit * Reason Comments eRx-Medication Refill Encounter Details Date Type Department Care Team Description 11/11/2022 Refill Family Practice [facility] [address] [place] [address] Dominik Camacho DO [address] [place] [address] Hypothyroidism Allergies Active Allergy Reactions Severity Noted Date Comments Benzalkonium Chloride 02/17/1997 Dextromethorphan Hydrochloride 02/17 itch Influenza Vaccines 05/28/2015 Latex High 07/13/2016 Morphine 02/17/1997 severe pain Morphine And Related 04/06/1999 GI pain Naproxen 07/26/2020 Other Allergy (See Comments) Hives High 017 Severe boils and blisters with surgical gonzalo Oxycodone 12/25/2017 Progestins 03/23/1998 hives Promethazine Hcl 02/17/1997 orally - causes nausea, IV MUSEUM ASSISTANT side effects Silver Sulfadiazine 11/27/2009 Sulfa Antibiotics 04/06/1999 Tetanus Toxoid 11/27/2009 Thimerosal 02/17/1997 pain documented as of this encounter (statuses as of 11/13/2022) Medications Medication Sig Dispensed Refills Start Date End Date Status CINNAMON 500 MG PO CAPS Take 1 Capsule by mouth in the morning. 0 Active D-3-5 5000 UNITS PO CAPS 2 daily 0 Active NATURAL SUPPLEMENT Eye pressure support with mirtogenol - per hamzaheman 1 Tab 0 11/17/2017 Active ONETOUCH DELICA LANCETS FINE MISC Test Blood Glucose once daily E11.9 100 Each 5 12/02/2018 Active Glucose Blood (ONETOUCH VERIO) STRP Test Blood Glucose once daily E11.9 100 Strip 5 12/02/2018 Active Blood Glucose Monitoring Suppl (RELION CONFIRM GLUCOSE MONITOR) w/Device KIT Use to test BG values 1 Kit 0 01/31/2019 Active Blood Glucose Monitoring Suppl (RELION PRIME MONITOR) LAVELLE Use to test BG once daily DX E11.9 1 Device 0 01/31/2019 Active Glucose Blood (RELION PRIME TEST) STRP To test blood glucose once daily DX E11.9 100 Strip 1 01/31/2019 Active Turmeric 500 MG Capsule Take 1 Capsule by mouth in the morning. 0 Active Bilberry 1000 MG Oral Capsule Take by mouth. 0 Active metFORMIN HCl ER 500 MG Oral Tablet Extended Release 24 Hour (Glucophage XR)Indications:Ty pe 2 diabetes mellitus without complication, without long-term current use of insulin (HCC) Take 2 tablets by mouth once daily 180 Tablet 1 11/29/2021 Active Alendronate Sodium 70 MG Oral Tablet (Fosamax)Indicati ons:Age-related osteoporosis without current pathological fracture Take by mouth 1 Tablet once a week . with 8 oz. water 30 minutes before first meal of the day. Remain upright for 30 min after taking tablet 5 Tablet 11 12/01/2021 Active Amitriptyline HCl 10 MG Oral Tablet (Elavil)Indicatio ns:Anxiety Take 1 Tablet by mouth at bedtime. 90 Tablet 0 08/25/2022 Active Furosemide 20 MG Oral Tablet (Lasix)Indication s:Edema, lower extremity Take 1 tablet by mouth twice daily 60 Tablet 0 09/13/2022 Active NATURAL SUPPLEMENT Take by mouth daily. Visi free eye drops 0 Active traMADol HCl 50 MG Oral Tablet (Ultram)Indicatio ns:Chronic bilateral low back pain without sciatica Take 1 Tablet by mouth every 6 hours as needed for Pain, Severe. 20 Tablet 0 09/19/2022 Active Medical Compression StockingsIndicati ons:Lymphedema of both lower extremities Wear daily as directed. 2 Each 3 09/19/2022 Active traMADol HCl 50 MG Oral Tablet (Ultram)Indicatio ns:Acute pain of left knee Take 1 Tablet by mouth every 6 hours as needed for Pain, Severe. 20 Tablet 0 10/31/2022 Active Levothyroxine Sodium 125 MCG Oral Tablet (Levoxyl)Indicati ons:Hypothyroidis m TAKE 1 TABLET BY MOUTH ONCE DAILY IN THE MORNING 30 MINUTES BEFORE BREAKFAST OR OTHER MEDICATIONS NEED LABS FOR REFILLS 30 Tablet 0 11/13/2022 Active Levothyroxine Sodium 125 MCG Oral Tablet (Levoxyl)Indicati ons:Hypothyroidis m TAKE 1 TABLET BY MOUTH ONCE DAILY IN THE MORNING 30 MINUTES BEFORE BREAKFAST OR OTHER MEDICATIONS 30 Tablet 0 10/13/2022 11/14/19 23 Discontinued documented as of this encounter (statuses as of 11/13/2022) Active Problems Problem Noted Date Fibromyalgia 07/20/2021 Melanoma in situ of cheek 04/01/2021 Body mass index (BMI) of 40.0 to 44.9 in adult 06/29/2020 Overview: Per Obesity protocol Diabetes mellitus without complication 0 05/18/2020 Other specified hypothyroidism 6 Elevated blood pressure, situational 08/2015 Inflamed seborrheic keratosis 06/29/2014 History of basal cell carcinoma 06/30/19 15 Neoplasm of uncertain behavior of skin 0 07/22/2013 ADVANCE DIRECTIVE INFORMATION 05/07/2006 Overview: No, Advance Directive brochure given to patient. 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 Irritable bowel syndrome 07/14/1997 MENOPAUSE - age 51 07/14/1997 documented as of this encounter (statuses as of 11/13/2022) Resolved Problems Problem Noted Date Resolved Date BMI 45.0-49.9, adult 05/18/2020 07/01/2020 Overview: Per Obesity protocol Open comedone 06/29/2014 04/11/2017 Other seborrheic keratosis 06/29/201404/09 Dermatofibroma of right lower leg 07/22/2013 04/09/2019 Pulmonary embolism and infarction 05/02/2013 09/30/2013 Overview: Had Fx ankle with surgery Developed PE Hypercoag workup at [facility] was negative Obesity, morbid (more than 1 00 lbs over ideal weight or BMI > 40) 05/18/2009 06/03/2020 Overview: Per Obesity Taxonomy ICD-10 update of inactive term ABN FIND-STOOL CONTENTS - + hemacult 10/21/1998 04/06/2005 HYPOTHYROIDISM NOS 07/31/1998 05/27/2015 Myalgia and myositis 07/14/1997 04/09/2019 Need for prophylactic hormon e replacement therapy (postmenopausal) 03/03/1997 04/06/2005 OBESITY, UNSPECIFIED 05/18/2009 Overview: Per Obesity Taxonomy documented as of this encounter (statuses as of 11/13/2022) Immunizations Name Administration Dates Next Due COVID-19 mRNA, LNP-s, No Pre serve, 2-Dose Series (Pfizer) 05/08/2020,04/17/2020 Pneumococcal Conjugate Vacc, 13 Valent (Prevnar) 10/19/2015 Pneumococcal Polysaccharide PPV23 (Pneumovax) Season Influenza, Quad, PF, Adjuvanted, 65+ Yrs, IM (FLUAD) 02/09/2020 Seasonal Influenza, Quadrivalent Hd (Fluzone Hd) 01/03/2022,11/17/2020 Seasonal Influenza, Trivalent, Adjuvanted, 65+ y rs 04/09/2019 Varicella Zoster Vaccine (Adult) 06/20/2015 Zoster Vaccine Recombinant (Shingrix) 09/29/2019 ,04/09/2019 documented as of this encounter Social History Tobacco Use Types Packs/Day Years Used Date Smoking Tobacco: Never Smokeless Tobacco: Never Comments:both parents were c harsha smokers at home Alcohol Use Standard Drinks/Week Comments Yes 0 (1 standard drink = 0.6 oz pur e alcohol) rare Food Insecurity Answer Date Recorded Within the past 12 months, y ou worried that your food would run out before you got money to buy more. Never true 08/13/2018 Within the past 12 months, t he food you bought just didn't last and you didn't have money to get more. Never true 08/13/2018 Sex Assigned at Date Recorded Not on file Job Start Date Occupation Industry Not on file Not on file Not on file documented as of this encounter Miscellaneous Notes * Telephone Encounter - Dominik Camacho DO - 11/13/2022 8:21 AM EDTSigned Prescriptions: Disp Refills Levothyroxine Sodium 125 MCG Oral Tablet (*30 Tab*0 Sig: TAKE 1 TABLET BY MOUTH ONCE DAILY IN THE MORNING 30 MINUTES BEFORE BREAKFAST OR OTHER MEDICATIONS NEED LABS FOR REFILLS Authorizing Provider: DOMINIK CAMACHO * Telephone Encounter - Beatris Morris [facility] - 11/12/2022 12:39 PM EDT Pending Prescriptions: Disp Refills Levothyroxine Sodium 125 MCG Oral Tablet 30 Tab*0 Sig: TAKE 1 TABLET BY MOUTH ONCE DAILY IN THE MORNING 30 MINUTES BEFORE BREAKFAST OR OTHER MEDICATIONS NEED LABS FOR REFILLS * Telephone Encounter - Beatris Morris [facility] - 11/12/2022 12:38 PM EDT Unable to authorize medication refills for pended medication(s) at this time. Part of the protocol criteria used for refill authorization was not satisfied. Patient needs TSH on file within the last year and outreach attempted multiple times to advise. Please approve if appropriate. Thank you, Beatris Morris, TaylorD, MAILE Clinical Pharmacist [facility]ized [facility] Pharmacy Services ([facility]) (formerly Telepharmacy) 11/12/22 12:39 PM [phone] documented in this encounter Plan of Treatment Scheduled Procedures Name Priority Associated Diagnoses Date/Ti me COLONOSCOPY FLEXIBLE PROXIMAL DIAGNOSTIC Recall Hx of colonic polyps Health Maintenance Due Date Last Done Comments COVID-19 Vaccine (3 - Pfizer series) 07/03/2020 05/08/2020, 04/17/2020 B-12 05/18/2021 05/18/2020, 04/09/2019 Depression Screening 05/18/2021 05/18/2020 HbA1c 11/17/2021 05/17/2021, 10/21, 06/14/2020, Additional history exists DIABETES-EYE EXAM 11/23/2021 11/23/2020 Albumin/Creatinine Ratio 05/17/2022 05/17/2021, 05/0 08/2020 GFR 05/17/2022 05/17/2021, 03/22, 11/17/2020, Additional history exists TSH 05/17/2022 05/17/2021, 12/0 04/2019, 08/13/2018, Additional history exists DXA Scan 06/28/2022 06/28/2020, 08/20, 09/10/2007, Additional history exists Influenza Vaccine (FLU shot) (#1) 2022 01/03/2022, 11/17/2020, 11/17/2020, Additional history exists COLONOSCOPY-EVERY 5 YRS AGES 18-100 03/26/2023 03/26/2018, 08/28/2012, 01/12/1999 Diabetic Foot Exam 09/20/2023 09/19/2022, 06/14/2020 Pneumococcal Vaccine: 65+ Years Completed 10/19/2015, 07/24/2012 Zoster Vaccines Completed 09/29/2019, 03/22, 06/20/2015 VITAMIN D LEVEL ONCE IN A LIFETIME-USE SMARTSET# [id number] Completed 11/17/2020, 10/19/2015, 04/06/2005 GARDASIL-HPV IMMUNIZATION SERIES Aged Out No longer eligible based on patient's age to complete this topic Hepatitis B Aged Out No longer eligi ble based on patient's age to complete this topic MENINGOCOCCAL (MENACTRA/MENVEO) Aged Out No longer eligible based on patient's age to complete this topic documented as of this encounter Medical Devices Not on filedocumented as of this encounter Visit Diagnoses Diagnosis Hypothyroidism Unspecified hypothyroidism documented in this encounter Care Teams Public Employment Mediator Relationship Specialty Start Date End Date Dominik Camacho, DO [address] [place] [address] PCP - General Family Medicine 01/02/22 documented as of this encounter
--- OUTSIDE RECORDS SUMMARY | 2023-02-14 23:20 | External Medical Summary | Summary of Care ---
Author Name Unknown Organization [facility] Address [address] [facility] [address] Phone [phone] Care Team Providers Care Seed Technician Name Role Phone Gloria Rojas DO Primary Care Provider [phone] Reason for Visit * Reason Comments eRx-Medication Refill Encounter Details Date Type Department Care Team (Late st Contact Info) Description 12/18/2022 Refill Family Practice [facility] [address] [place] [address] Gloria Rojas DO [address] [place] [address] Edema, lower extremity Allergies Active Allergy Reactions Criticality Noted Date Comments Benzalkonium Chloride 02/17/1997 Dextromethorphan Hydrochloride 02/17 itch Influenza Vaccines 05/28/2015 Latex High 07/13/2016 Morphine 02/17/1997 severe pain Morphine And Related 04/06/1999 GI pain Naproxen 07/26/2020 Other Allergy (See Comments) Hives High 017 Severe boils and blisters with surgical gonzalo Oxycodone 12/25/2017 Progestins 03/23/1998 hives Promethazine Hcl 02/17/1997 orally - causes nausea, IV CAD ADMINISTRATOR side effects Silver Sulfadiazine 11/27/2009 Sulfa Antibiotics 04/06/1999 Tetanus Toxoid 11/27/2009 Thimerosal 02/17/1997 pain documented as of this encounter (statuses as of 12/18/2022) Medications Medication Sig Dispensed Refills Start Date End Date Status CINNAMON 500 MG PO CAPS Take 1 Capsule by mouth in the morning. 0 Active D-3-5 5000 UNITS PO CAPS 2 daily 0 Active NATURAL SUPPLEMENT Eye pressure support with mirtogenol - per tinkleman 1 Tab 0 11/17/2017 Active ONETOUCH DELICA [...] Oral Tablet Extended Release 24 Hour (Glucophage XR)Indications:Type 2 diabetes mellitus without complication, without long-term current use of insulin (HCC) Take 2 tablets by mouth once daily 180 Tablet 1 11/29/2021 Active Alendronate Sodium 70 MG Oral Tablet (Fosamax)Indication s:Age-related osteoporosis without current pathological fracture Take by mouth 1 Tablet once a week . with 8 oz. water 30 minutes before first meal of the day. Remain upright for 30 min after taking tablet 5 Tablet 11 12/01/2021 Active Furosemide 20 MG Oral Tablet (Lasix)Indications: Edema, lower extremity Take 1 tablet by mouth twice daily 60 Tablet 0 09/13/2022 Active NATURAL SUPPLEMENT Take by mouth daily. Visi free eye drops 0 Active traMADol HCl 50 MG Oral Tablet (Ultram)Indications :Chronic bilateral low back pain without sciatica Take 1 Tablet by mouth every 6 hours as needed for Pain, Severe. 20 Tablet 0 09/19/2022 Active Medical Compression StockingsIndication s:Lymphedema of both lower extremities Wear daily as directed. 2 Each 3 09/19/2022 Active traMADol HCl 50 MG Oral Tablet (Ultram)Indications :Acute pain of left knee Take 1 Tablet by mouth every 6 hours as needed for Pain, Severe. 20 Tablet 0 10/31/2022 Active Levothyroxine Sodium 125 MCG Oral Tablet (Levoxyl)Indication s:Hypothyroidism TAKE 1 TABLET BY MOUTH ONCE DAILY IN THE MORNING 30 MINUTES BEFORE BREAKFAST OR OTHER MEDICATIONS NEED LABS FOR REFILLS 30 Tablet 0 11/13/2022 Active Amitriptyline HCl 10 MG Oral Tablet (Elavil)Indications :Anxiety TAKE 1 TABLET BY MOUTH AT BEDTIME 90 Tablet 1 11/18/2022 Active documented as of this encounter (statuses as of 12/18/2022) Active Problems Problem Noted Date Diagnosed Date Fibromyalgia 07/20/2021 Melanoma in situ of cheek 04/01/2021 Body mass index (BMI) of 40.0 to 44.9 in adult 0 06/29/2020 Overview: Per Obesity protocol Diabetes mellitus without complication 1 Other specified hypothyroidism 05/27/2015 Elevated blood pressure, situational 05/27/2015 Inflamed seborrheic keratosis 06/29/2014 History of basal cell carcinoma 06/29/2014 Neoplasm of uncertain behavior of skin 4 ADVANCE DIRECTIVE INFORMATION 05/07/2006 Overview: No, Advance Directive brochure given to patient. 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 Irritable bowel syndrome 07/14/1997 MENOPAUSE - age 51 07/14/1997 documented as of this encounter (statuses as of 12/18/2022) Resolved Problems Problem Noted Date Diagnosed Date Resolved Date BMI 45.0-49.9, adult 05/18/202007/01/ 021 Overview: Per Obesity protocol Open comedone 06/29/2014 04/11/2017 Other seborrheic keratosis 06/29/2014 0 04/09/2019 Dermatofibroma of right lower leg 07/22/2013 04/09/2019 Pulmonary embolism and infarction 05/02/2013 09/30/2013 Overview: Had Fx ankle with surgery Developed PE Hypercoag workup at [facility] was negative Obesity, morbid (more than 1 00 lbs over ideal weight or BMI > 40) 05/18/2009 06/03/2020 Overview: Per Obesity Taxonomy ICD-10 update of inactive term ABN FIND-STOOL CONTENTS - + hemacult 10/21/1998 04/06/2005 HYPOTHYROIDISM NOS 07/31/1998 6 Myalgia and myositis 07/14/1997 020 Need for prophylactic hormon e replacement therapy (postmenopausal) 03/03/1997 04/06/2005 OBESITY, UNSPECIFIED 010 Overview: Per Obesity Taxonomy documented as of this encounter (statuses as of 12/18/2022) Immunizations Name Administration Dates Next Due COVID-19 [...] = 0.6 oz pur e alcohol) rare Sex and Gender Information Value Date Recorded Sex Assigned at Not on file Gender Identity Not on file Sexual Orientation Not on file Job Start Date Occupation Industry Not on file Not on file Not on file documented as of this encounter Miscellaneous Notes * Telephone Encounter - Melissa Smith [facility] - 12/18/2022 8:24 PM EDT Refused Prescriptions: Disp Refills Furosemide 20 MG Oral Tablet (Lasix) 60 Tab*0 Sig: Take 1 tablet by mouth twice dailyRefused By: MELISSA SMITH for Refusal: Course of treatment complet e * Telephone Encounter - Melissa Smith RPh - 12/18/2022 8:23 PM EDT PER 09/19 OV: "Had stopped Lasix doses because of inability to make it to the restroom. " Thank you, Melissa Smith, PharmD Clinical Pharmacist Centralized Clinical Pharmacy Services ([facility]) (Formerly Telepharmacy) [phone] 12/18/2022, 8:23 PM documented in this encounter Plan of Treatment Scheduled Procedures Name Priority Associated Diagnoses Date/Ti me COLONOSCOPY FLEXIBLE PROXIMAL DIAGNOSTIC Recall Hx of colonic polyps Health Maintenance Due Date Last Done Comments Hepatitis B (1 of 3 - Risk 3-dose series) 2006 B-12 05/18/2021 05/18/2020, 04/09/2019 Depression Screening 05/18/2021 05/18/2020 HbA1c 11/17/2021 05/17/2021, 10/21, 06/14/2020, Additional history exists Diabetic Eye Exam 11/23/2021 11/23/2020 Albumin/Creatinine Ratio 05/17/2022 05/17/2021, 050 08/2020 GFR 05/17/2022 05/17/2021, 03/22, 11/17/2020, Additional history exists TSH 05/17/2022 05/17/2021, 12/0 04/2019, 08/13/2018, Additional history exists DXA Scan 06/28/2022 06/28/2020, 08/20, 09/10/2007, Additional history exists COVID-19 Vaccine (3 - 2022-24 season) 2022 05/08/2020, 04/17/2020 Influenza Vaccine (FLU shot) (#1) 2022 01/03/2022, 11/17/2020, 11/17/2020, Additional history exists COLONOSCOPY-EVERY 5 YRS AGES 18-100 03/26/2023 03/26/2018, 08/28/2012, 01/12/1999 Diabetic Foot Exam 09/20/2023 09/19/2022, 06/14/2020 Pneumococcal Vaccine: 65+ Years Completed 10/19/2015, 07/24/2012 Zoster Vaccines Completed 09/29/2019, 03/22, 06/20/2015 VITAMIN D LEVEL ONCE IN A LIFETIME-USE SMARTSET# [id number] Completed 11/17/2020, 10/19/2015, 04/06/2005 GARDASIL-HPV IMMUNIZATION SERIES Aged Out No longer eligible based on patient's age to complete this topic MENINGOCOCCAL (MENACTRA/MENVEO) Aged Out No longer eligible based on patient's age to complete this topic documented as of this encounter Medical Devices Not on filedocumented as of this encounter Visit Diagnoses Diagnosis Edema, lower extremity Edema documented in this encounter Care Teams Seed Technician Relationship Specialty Start Date End Date Gloria Rojas DO [address] [place] [address] PCP - General Family Medicine 01/02/22 documented as of this encounter
--- OUTSIDE RECORDS SUMMARY | 2023-02-14 23:20 | External Medical Summary | Summary of Care ---
Author Name Unknown Organization [facility] Address [address] [facility] [place] [address] Phone [phone] Care Team Providers Care Kinesiology Professor Name Role Phone Gloria Rojas DO Primary Care Provider [phone] Encounter Details Date Type Department Care Team (Late st Contact Info) Description 02/02/2023 Orders Only Family Practice [facility] [address] [place] [address] Gloria Rojas, [address] [place] [address] Allergies Active Allergy Reactions Criticality Noted Date Comments Benzalkonium Chloride 02/17/1997 Dextromethorphan Hydrochloride 02/17 itch Influenza Vaccines 05/28/2015 Latex High 07/13/2016 Morphine 02/17/1997 severe pain Morphine And Related 04/06/1999 GI pain Naproxen 07/26/2020 Other Allergy (See Comments) Hives High 017 Severe boils and blisters with surgical gonzalo Oxycodone 12/25/2017 Progestins 03/23/1998 hives Promethazine Hcl 02/17/1997 orally - causes nausea, IV WREATH MACHINE TENDER side effects Silver Sulfadiazine 11/27/2009 Sulfa Antibiotics 04/06/1999 Tetanus Toxoid 11/27/2009 Thimerosal 02/17/1997 pain documented as of this encounter (statuses as of 02/02/2023) Medications Medication Sig Dispensed Refills Start Date [...] Active Alendronate Sodium 70 MG Oral Tablet (Fosamax)Indications :Age-related osteoporosis without current pathological fracture Take by mouth 1 Tablet once a week . with 8 oz. water 30 minutes before first meal of the day. Remain upright for 30 min after taking tablet 5 Tablet 11 12/01/2021 Active NATURAL SUPPLEMENT Take by mouth daily. Visi free eye drops 0 Active traMADol HCl 50 MG Oral Tablet (Ultram)Indications: Chronic bilateral low back pain without sciatica Take 1 Tablet by mouth every 6 hours as needed for Pain, Severe. 20 Tablet 0 09/19/2022 Active Medical Compression StockingsIndications :Lymphedema of both lower extremities Wear daily as directed. 2 Each 3 09/19/2022 Active Amitriptyline HCl 10 MG Oral Tablet (Elavil)Indications: Anxiety TAKE 1 TABLET BY MOUTH AT BEDTIME 90 Tablet 1 11/18/2022 Active Furosemide 20 MG Oral Tablet (Lasix)Indications:E kevin, lower extremity Take 1 Tablet by mouth in the morning and 1 Tablet before bedtime. 60 Tablet 0 12/20/2022 Active Levothyroxine Sodium 125 MCG Oral Tablet (Levoxyl)Indications :Hypothyroidism TAKE 1 TABLET BY MOUTH IN THE MORNING 30 MINUTES BEFORE BREAKFAST OR OTHER MEDS (NEED LABS FOR REFILLS) 30 Tablet 0 01/17/2023 Active documented as of this encounter (statuses as of 02/02/2023) Active Problems Problem Noted Date Diagnosed Date Fibromyalgia 07/20/2021 Melanoma in situ of cheek 04/01/2021 Body mass index (BMI) of 40.0 to 44.9 in adult 0 06/29/2020 Overview: Per Obesity protocol Diabetes mellitus without complication Other specified hypothyroidism 05/27/2015 Elevated blood pressure, [...] as of this encounter (statuses as of 02/02/2023) Resolved Problems Problem Noted Date Diagnosed Date Resolved Date BMI 45.0-49.9, adult 05/18/2020 05/ 021 Overview: Per Obesity protocol Open comedone 06/29/2014 04/11/2017 Other seborrheic keratosis 06/29/2014 0 04/09/2019 Dermatofibroma of right lower leg 07/22/2013 04/09/2019 Pulmonary embolism and infarction 05/02/2013 09/30/2013 Overview: Had Fx ankle with surgery Developed PE Hypercoag workup at [facility] was negative Obesity, morbid (more than [...] as of this encounter (statuses as of 02/02/2023) Immunizations Name Administration Dates Next Due COVID-19 [...] = 0.6 oz pur e alcohol) rare PHQ-2 Answer Date Recorded PHQ Adult Total Score 0 05/18/2020 Hunger Vital Sign Answer Date Recorded Worried About Running Out of Food in the Last Ye ar Never true 08/13/2018 Ran Out of Food in the Last Year Never true 08/13/2018 Sex and Gender Information Value Date Recorded Sex Assigned at Not on file Gender Identity Not on file Sexual Orientation Not on file Job Start Date Occupation Industry Not on file Not on file Not on file documented as of this encounter Plan of Treatment Upcoming Encounters Date Type Department Care Team (Late st Contact Info) Description 06/06/2023 5:40 PM EDT Office Visit Family [address] [place] [address] Gloria Rojas, DO [address] [place] [address] Scheduled Procedures Name Priority Associated Diagnoses Date/Ti me COLONOSCOPY FLEXIBLE PROXIMAL DIAGNOSTIC Recall Hx of colonic polyps Health Maintenance Due Date Last Done Comments Hepatitis B (1 of 3 - Risk 3-dose series) 2006 B-12 05/18/2021 05/18/2020, 04/09/2019 Depression Screening 05/18/2021 05/18/2020 HbA1c 11/17/2021 05/17/2021, 10/21, 06/14/2020, Additional history exists Diabetic Eye Exam 03/25/2022 03/25/2021, 11/23/2020 Albumin/Creatinine Ratio 05/17/2022 05/17/2021, 05/0 08/2020 GFR 05/17/2022 11/11/2022, 04/20, 04/01/2021, Additional history exists TSH 05/17/2022 05/17/2021, 12/0 04/2019, 08/13/2018, Additional history exists DXA Scan 06/28/2022 06/28/2020, 08/20, 09/10/2007, Additional history exists COVID-19 Vaccine (2022- season) 2022 05/08/2020, 04/17/2020 Influenza Vaccine (FLU shot) (#1) 2022 01/03/2022, 11/17/2020, 11/17/2020, Additional history exists COLONOSCOPY-EVERY 5 YRS AGES 18-100 03/26/2023 03/26/2018, 08/28/2012, 01/12/1999 Diabetic Foot Exam 09/20/2023 09/19/2022, 06/14/2020 Pneumococcal Vaccine: 65+ Years Completed 10/19/2015, 07/24/2012 Zoster Vaccines Completed 09/29/2019, 03/22, 06/20/2015 VITAMIN D LEVEL ONCE IN A LIFETIME-USE SMARTSET# [id number] Completed 11/17/2020, 10/19/2015, 04/06/2005 GARDASIL-HPV IMMUNIZATION SERIES Aged Out No longer eligible based on patient's age to complete this topic MENINGOCOCCAL (MENACTRA/MENVEO) Aged Out No longer eligible based on patient's age to complete this topic documented as of this encounter Medical Devices Not on filedocumented as of this encounter Procedures Procedure Name Priority Date/Time Associated Diagnosis Comments CHEMISTRY-OUTSIDE Routine 11/11/2022 documented in this encounter Results * CHEMISTRY-OUTSIDE (11/11/2022) Not all results display below - see scan for full detail OUTSIDE LAB (SEE SCANNED REPORT) Comment:SCAN INCLUDES: CBCD, PT/INR, PTT, CMP, TROP, LIPASE CREATININE-OUTSID E LAB 0.66 0.6 - 1.2 MG/DL OUTSIDE LAB (SEE SCANNED REPORT) EGFR-OUTSIDE LAB 85.8 ML/MIN OUT SIDE LAB (SEE SCANNED REPORT) POTASSIUM-OUTSIDE LAB 3.6 3.5 - 5.1 MMOL/L OUTSIDE LAB (SEE SCANNED REPORT) GLUCOSE-OUTSIDE LAB 93 70 - 99 MG/DL OUTSIDE LAB (SEE SCANNED REPORT) HOURS FASTING OUTSID E LAB (SEE SCANNED REPORT) TRIGLYCERIDES-OUT SIDE LAB OUTSIDE LAB (SEE SCANNED REPORT) CHOLESTEROL-OUTSI DE LAB OUTSIDE LAB (SEE SCANNED REPORT) HDL-OUTSIDE LAB OUTS NIOCLE LAB (SEE SCANNED REPORT) CHOL/HDL RATIO-OUTSIDE LAB OUTSIDE LA B (SEE SCANNED REPORT) LDL (CALCULATED)-OUTS NICOLE LAB OUTSIDE LAB (SEE SCANNED REPORT) LDL (DIRECT MEASURE)-OUTSIDE LAB OUTSIDE LAB (SEE SCANNED REPORT) HEMOGLOBIN, [id number] LAB OUTSIDE LAB (SEE SCANNED REPORT) PHOSPHORUS-OUTSID E LAB OUTSIDE LAB (SEE SCANNED REPORT) PTH-OUTSIDE LAB OUTS NICOLE LAB (SEE SCANNED REPORT) MICROALBUMIN RATIO-OUTSIDE LAB OUTSIDE LA B (SEE SCANNED REPORT) PROTEIN, UA-OUTSIDE LAB OUTSIDE LAB (SEE SCANNED REPORT) HEMOGLOBIN-OUTSID E LAB 15.0 12.0 - 16.0 G/DL OUTSIDE LAB (SEE SCANNED REPORT) 11/11/2022 Castillo Spear MD LABORATORY OUTSIDE LAB (SEE SCANNED REPORT) documented in this encounter Care Teams Kinesiology Professor Relationship Specialty Start Date End Date Gloria Rojas DO [address] [place] [id number] PCP - General Family Medicine 01/02/22 documented as of this encounter
--- OUTSIDE RECORDS SUMMARY | 2023-02-14 23:20 | External Medical Summary | Summary of Care ---
Author Name Unknown Organization [facility] Address [address] [place] [address] Phone [phone] Care Team Providers Care Mineral Wool Insulation Supervisor Name Role Phone Dominik Camacho DO Primary Care Provider [phone] Reason for Visit * Reason Onset Date Comments Appointment 09/08/2022 Encounter Details Date Type Department Care Team Description 09/08/2022 Telephone Wound Care, [facility] [address] [place] [address] Services, Scheduling [address] [place] [address] Appointment Allergies Active Allergy Reactions Severity Noted Date Comments Benzalkonium Chloride 02/17/1997 Dextromethorphan Hydrochloride 02/17 itch Influenza Vaccines 05/28/2015 Latex High 07/13/2016 Morphine 02/17/1997 severe pain Morphine And Related 04/06/1999 GI pain Naproxen 07/26/2020 Other Allergy (See Comments) Hives High 017 Severe boils and blisters with surgical gonzalo Oxycodone 12/25/2017 Progestins 03/23/1998 hives Promethazine Hcl 02/17/1997 orally - causes nausea, IV BIOSTATISTICS MANAGER side effects Silver Sulfadiazine 11/27/2009 Sulfa Antibiotics 04/06/1999 Tetanus Toxoid 11/27/2009 Thimerosal 02/17/1997 pain documented as of this encounter (statuses as of 10/31/2022) Medications Medication Sig Dispensed Refills Start Date End Date Status CINNAMON 500 MG PO CAPS Take 1 Capsule by mouth in the morning. 0 Active D-3-5 5000 UNITS PO CAPS 2 daily 0 Active NATURAL SUPPLEMENT Eye pressure support with mirtogenol - per hamzaheman 1 Tab 0 8 Active ONETOUCH DELICA LANCETS FINE MISC Test Blood Glucose once daily E11.9 100 Each 5 9 Active Glucose Blood (ONETOUCH VERIO) STRP Test Blood Glucose once daily E11.9 100 Strip 5 9 Active Blood Glucose Monitoring Suppl (RELION CONFIRM GLUCOSE MONITOR) w/Device KIT Use to test BG values 1 Kit 0 9 Active Blood Glucose Monitoring Suppl (RELION PRIME MONITOR) LAVELLE Use to test BG once daily DX E11.9 1 Device 0 9 Active Glucose Blood (RELION PRIME TEST) STRP To test blood glucose once daily DX E11.9 100 Strip 1 9 Active Turmeric 500 MG Capsule Take 1 Capsule by mouth in the morning. 0 Active Bilberry 1000 MG Oral Capsule Take by mouth. 0 Active metFORMIN HCl ER 500 MG Oral Tablet Extended Release 24 Hour (Glucophage XR)Indications:Ty pe 2 diabetes mellitus without complication, without long-term current use of insulin (HCC) Take 2 tablets by mouth once daily 180 Tablet 1 2 Active Alendronate Sodium 70 MG Oral Tablet (Fosamax)Indicati ons:Age-related osteoporosis without current pathological fracture Take by mouth 1 Tablet once a week . with 8 oz. water 30 minutes before first meal of the day. Remain upright for 30 min after taking tablet 5 Tablet 11 2 Active Amitriptyline HCl 10 MG Oral Tablet (Elavil)Indicatio ns:Anxiety Take 1 Tablet by mouth at bedtime. 90 Tablet 0 3 Active traMADol HCl 50 MG Oral Tablet (Ultram)Indicatio ns:Acute pain of left knee Take 1 Tablet by mouth every 6 hours as needed for Pain, Severe. 20 Tablet 0 3 Active Ammonium Lactate 12 % External Cream Apply topically to affected area daily. Apply to all skin daily 385 g 11 1 09/20/19 23 Discontinued(Pat ient preference/disco ntinuation) traMADol HCl 50 MG Oral Tablet (Ultram)Indicatio ns:Acute pain of left knee Take 1 Tablet (50 mg) by mouth every 6 hours as needed for Pain, Severe. 30 Tablet 0 2 09/20/19 23 Discontinued(Med ication List Clean Up) Furosemide 20 MG Oral Tablet (Lasix)Indication s:Edema, lower extremity Take 1 Tablet by mouth in the morning and 1 Tablet before bedtime. 60 Tablet 0 3 09/14/19 23 Discontinued Levothyroxine Sodium 125 MCG Oral Tablet (Euthyrox)Indicat ions:Hypothyroidi sm Take 1 Tablet by mouth in the morning. (at least 30 min prior to breakfast or other meds). 30 Tablet 0 3 09/12/19 23 Discontinued Cephalexin 500 MG Oral CapsuleIndication s:Cellulitis, unspecified cellulitis site Take 1 Capsule by mouth in the morning and 1 Capsule at noon and 1 Capsule in the evening and 1 Capsule before bedtime. Do all this for 10 days. 40 Capsule 0 3 09/18/19 23 documented as of this encounter (statuses as of 10/31/2022) Active Problems Problem Noted Date Fibromyalgia 07/20/2021 [...] as of this encounter (statuses as of 10/31/2022) Resolved Problems Problem Noted Date Resolved Date BMI 45.0-49.9, adult 05/18/2020 07/01/2020 Overview: Per Obesity protocol Open comedone 06/29/2014 04/11/2017 Other seborrheic keratosis 06/29/201404/09 Dermatofibroma of right lower leg 07/22/2013 04/09/2019 Pulmonary embolism and infarction 05/02/2013 09/30/2013 Overview: Had Fx ankle with surgery Developed PE Hypercoag workup at [facility] was negative Obesity, morbid (more than [...] as of this encounter (statuses as of 10/31/2022) Immunizations Name Administration Dates Next Due COVID-19 [...] as of this encounter Miscellaneous Notes * Addendum Note - Dominik Camacho DO - 10/31/2022 12:45 PM EDTAddended by: DOMINIK CAMACHO on: 10/31/2022 12:45 PM Modules accepted: Orders * Telephone Encounter - Dominik Camacho DO - 09/19/2022 10:53 PM EDT [facility] to pt [facility] * Telephone Encounter - DIANA Fuchs - 09/19/2022 3:08 PM EDT Angelina calling from [facility] to let provider know that they have not been able to get a hold of pt since receiving referral on 09/07. She has tried both numbers and left message. * Telephone Encounter - Sandra Shirley - 09/08/2022 2:21 PM EDT Spoke with patient to schedule new wound appointment from for bilateral LE wounds. She does not wish to travel to [place]. Is informed to contact PCP to schedule appointment with [facility]. documented in this encounter Plan of Treatment [...] 11/17/2020, Additional history exists TSH 05/17/2022 05/17/2021, 12/04/2019, 08/13/2018, Additional history exists DXA Scan 06/28/2022 06/28/2020, 08/20, 09/10/2007, Additional history exists Influenza Vaccine (FLU shot) (#1) 2022 01/03/2022, 11/17/2020, 11/17/2020, Additional history exists COLONOSCOPY-EVERY 5 YRS AGES 18-100 03/26/2023 03/26/2018, 08/28/2012, 01/12/1999 Diabetic Foot Exam 09/20/2023 09/19/2022, 06/14/2020 Pneumococcal Vaccine: 65+ Years Completed 10/19/2015, 07/24/2012 Zoster Vaccines Completed 09/29/2019, 03/22, 06/20/2015 VITAMIN D LEVEL ONCE IN A LIFETIME-USE SMARTSET# [id number] Completed 11/17/2020, 10/19/2015, 04/06/2005 GARDASIL-HPV IMMUNIZATION SERIES [...] as of this encounter Visit Diagnoses Diagnosis Acute pain of left knee documented in this encounter Care Teams Mineral Wool Insulation Supervisor Relationship Specialty Start Date End Date Dominik Camacho DO [address] [place] [address] PCP - General Family Medicine 01/02/22 documented as of this encounter
--- OUTSIDE RECORDS SUMMARY | 2023-02-14 23:20 | External Medical Summary | Summary of Care ---
Author Name Unknown Organization [facility] Address [address] [facility] [address] Phone [phone] Care Team Providers Care Air Saw Operator Name Role Phone Dominik Camacho DO Primary Care Provider [phone] Reason for Visit * Reason Comments eRx-Medication Refill Encounter Details Date Type Department Care Team (Late st Contact Info) Description 01/17/2023 Refill Family Practice [facility] [address] [place] [address] Dominik Camacho DO [address] [place] [address] Hypothyroidism Allergies Active Allergy Reactions Criticality Noted Date Comments Benzalkonium Chloride 02/17/1997 Dextromethorphan Hydrochloride 02/17 itch Influenza Vaccines 05/28/2015 Latex High 07/13/2016 Morphine 02/17/1997 severe pain Morphine And Related 04/06/1999 GI pain Naproxen 07/26/2020 Other Allergy (See Comments) Hives High 017 Severe boils and blisters with surgical gonzalo Oxycodone 12/25/2017 Progestins 03/23/1998 hives Promethazine Hcl 02/17/1997 orally - causes nausea, IV DRYERMAN/WOMAN side effects Silver Sulfadiazine 11/27/2009 Sulfa Antibiotics 04/06/1999 Tetanus Toxoid 11/27/2009 Thimerosal 02/17/1997 pain documented as of this encounter (statuses as of 01/17/2023) Medications Medication Sig Dispensed Refills Start Date [...] HCl 10 MG Oral Tablet (Elavil)Indicatio ns:Anxiety TAKE 1 TABLET BY MOUTH AT BEDTIME 90 Tablet 1 11/18/2022 Active Furosemide 20 MG Oral Tablet (Lasix)Indication s:Edema, lower extremity Take 1 Tablet by mouth in the morning and 1 Tablet before bedtime. 60 Tablet 0 12/20/2022 Active Levothyroxine Sodium 125 MCG Oral Tablet (Levoxyl)Indicati ons:Hypothyroidis m TAKE 1 TABLET BY MOUTH IN THE MORNING 30 MINUTES BEFORE BREAKFAST OR OTHER MEDS (NEED LABS FOR REFILLS) 30 Tablet 0 01/17/2023 Active Levothyroxine Sodium 125 MCG Oral Tablet (Levoxyl)Indicati ons:Hypothyroidis m TAKE 1 TABLET BY MOUTH ONCE DAILY IN THE MORNING 30 MINUTES BEFORE BREAKFAST OR OTHER MEDICATIONS NEED LABS FOR REFILLS 30 Tablet 0 11/13/2022 01/18/20 23 Discontinued documented as of this encounter (statuses as of 01/17/2023) Active Problems Problem Noted Date Diagnosed Date [...] as of this encounter (statuses as of 01/17/2023) Resolved Problems Problem Noted Date Diagnosed Date Resolved Date BMI 45.0-49.9, adult 05/18/2020 021 Overview: Per Obesity protocol Open comedone 06/29/2014 04/11/2017 Other seborrheic keratosis 06/29/2014 0 04/09/2019 Dermatofibroma of right lower leg 07/22/2013 04/09/2019 Pulmonary embolism and infarction 05/02/2013 09/30/2013 Overview: Had Fx ankle with surgery Developed PE Hypercoag workup at [facility] was negative Obesity, morbid (more than [...] as of this encounter (statuses as of 01/17/2023) Immunizations Name Administration Dates Next Due COVID-19 [...] Telephone Encounter - Dominik Camacho DO - 01/17/2023 1:34 PM ESTSigned Prescriptions: Disp Refills Levothyroxine Sodium 125 MCG Oral Tablet (*30 Tab*0 Sig: TAKE 1 TABLET BY MOUTH IN THE MORNING 30 MINUTES BEFORE BREAKFAST OR OTHER MEDS (NEED LABS FOR REFILLS) Authorizing Provider: DOMINIK CAMACHO * Telephone Encounter - Kathryn Adames RPh - 01/17/2023 11:17 AM EST Pending Prescriptions: Disp Refills Levothyroxine Sodium 125 MCG Oral Tablet 30 Tab*0 Sig: TAKE 1 TABLET BY MOUTH IN THE MORNING 30 MINUTES BEFORE BREAKFAST OR OTHER MEDS (NEED LABS FOR REFILLS) * Telephone Encounter - Kathryn Adames RPh - 01/17/2023 11:16 AM EST Unable to authorize medication refills for pended medication(s) at this time. Part of the protocol criteria used for refill authorization was not satisfied. Patient needs TSH/T4 within last year. TSH Results: Lab Results Component Value Date/Time TSH - SUYAPAER 3.35 05/17/2021 10:01 AM Patient has been notified in numerous encounters. Please approve if appropriate. Thank you, Kathryn Adames RPh Clinical Pharmacist [facility] ([facility]) (formerly Telepharmacy) 01/17/23 11:16 AM [phone] * Telephone Encounter - Kathryn Adames RPh - 01/17/2023 11:14 AM EST Did you pend patient's preferred pharmacy and medication before forwarding?yes Pharmacy: [facility] [address] [place] [address] Pending Prescriptions: Disp Refills Levothyroxine Sodium 125 MCG Oral Tablet *30 Tab*0 Sig: TAKE 1 TABLET BY MOUTH IN THE MORNING 30 MINUTES BEFORE BREAKFAST OR OTHER MEDS (NEED LABS FOR REFILLS) Last Visit: 09/19/2022 (in office), Visit date not found (telemedicine) Next Visit: 06/06/2023 If no future appointments scheduled, and last appointment is greater than a year ago, please schedule patient for a follow-up appointment Last date the medication was ordered: 11/13/2022 Is this request for a controlled substance?No Urine Drug Screen:No results found for this or any previous visit. Patient Phone Numbers Labs: Lab Results Component Value Date/Time CREAT 0.7 05/17/2021 10:01 AM CREAT 0.7 04/09/2019 10:02 AM POTASSIUM 3.8 05/17/2021 10:01 AM POTASSIUM 4.2 04/09/2019 10:02 AM TSH 3.35 05/17/2021 10:01 AM TSH 2.76 01/22/2020 09:52 AM LDLCALC 99 05/18/2020 10:42 AM LDLCALC 92 10/19/2015 12:08 PM ALT 36 (H) 07/26/2020 11:01 AM ALT 32 08/13/2018 09:26 AM HGBA1C 7.1 (H) 05/17/2021 10:01 AM HGBA1C 7.0 (H) 04/09/2019 10:02 AM documented in this encounter Plan of Treatment Upcoming Encounters Date Type Department Care Team (Late st Contact Info) Description 06/06/2023 5:40 PM EDT Office Visit [facility] [address] [place] [address] Dominik Camacho, [address] [place] [address] Scheduled Procedures Name Priority Associated Diagnoses Date/Ti [...] 08/20, 09/10/2007, Additional history exists COVID-19 Vaccine ( season) 2022 05/08/2020, 04/17/2020 Influenza Vaccine (FLU shot) (#1) 2022 01/03/2022, 11/17/2020, 11/17/2020, Additional history exists COLONOSCOPY-EVERY 5 YRS AGES 18-100 03/26/2023 03/26/2018, 08/28/2012, 01/12/1999 Diabetic Foot Exam 09/20/2023 09/19/2022, 06/14/2020 Pneumococcal Vaccine: 65+ Years Completed 10/19/2015, 07/24/2012 Zoster Vaccines Completed 09/29/2019, 03/22, 06/20/2015 VITAMIN D LEVEL ONCE IN A LIFETIME-USE SMARTSET# [id number] Completed 11/17/2020, 10/19/2015, 04/06/2005 GARDASIL-HPV IMMUNIZATION SERIES Aged Out No longer eligible based on patient's age to complete this topic MENINGOCOCCAL (MENACTRA/MENVEO) Aged Out No longer eligible based on patient's age to complete this topic documented as of this encounter Medical Devices Not on filedocumented as of this encounter Visit Diagnoses Diagnosis Hypothyroidism Unspecified hypothyroidism documented in this encounter Care Teams Air Saw Operator Relationship Specialty Start Date End Date Dominik Camacho DO [address] [place] [address] PCP - General Family Medicine 01/02/22 documented as of this encounter
--- OUTSIDE RECORDS SUMMARY | 2023-02-14 23:20 | External Medical Summary | Summary of Care ---
Author Name Unknown Organization [facility] Address [address] [facility] [place] [address] Phone [phone] Care Team Providers Care Lead Oracle Developer Name Role Phone Dominik Camacho DO Primary Care Provider [phone] Reason for Visit * Reason Onset Date Comments Medication Refill 12/19/2022 Encounter Details Date Type Department Care Team (Late st Contact Info) Description 12/19/2022 Refill Family Practice [facility] [address] [place] [address] Dominik Camacho, [address] [place] [address] Edema, lower extremity Allergies Active Allergy Reactions Criticality Noted Date Comments Benzalkonium Chloride 02/17/1997 Dextromethorphan Hydrochloride 02/17 itch Influenza Vaccines 05/28/2015 Latex High 07/13/2016 Morphine 02/17/1997 severe pain Morphine And Related 04/06/1999 GI pain Naproxen 07/26/2020 Other Allergy (See Comments) Hives High 017 Severe boils and blisters with surgical gonzalo Oxycodone 12/25/2017 Progestins 03/23/1998 hives Promethazine Hcl 02/17/1997 orally - causes nausea, IV REFERENCE DATA EXPERT side effects Silver Sulfadiazine 11/27/2009 Sulfa Antibiotics 04/06/1999 Tetanus Toxoid 11/27/2009 Thimerosal 02/17/1997 pain documented as of this encounter (statuses as of 12/20/2022) Medications Medication Sig Dispensed Refills Start Date End Date Status CINNAMON 500 MG PO CAPS Take 1 Capsule by mouth in the morning. 0 Active D-3-5 5000 UNITS PO CAPS 2 daily 0 Active NATURAL SUPPLEMENT Eye pressure support with mirtogenol - per clairekleman 1 Tab 0 11/17/2017 Active ONETOUCH DELICA [...] Oral Tablet Extended Release 24 Hour (Glucophage XR)Indications:Typ e 2 diabetes mellitus without complication, without long-term current use of insulin (HCC) Take 2 tablets by mouth once daily 180 Tablet 1 11/29/2021 Active Alendronate Sodium 70 MG Oral Tablet (Fosamax)Indicatio ns:Age-related osteoporosis without current pathological fracture Take by mouth 1 Tablet once a week . with 8 oz. water 30 minutes before first meal of the day. Remain upright for 30 min after taking tablet 5 Tablet 11 12/01/2021 Active NATURAL SUPPLEMENT Take by mouth daily. Visi free eye drops 0 Active traMADol HCl 50 MG Oral Tablet (Ultram)Indication s:Chronic bilateral low back pain without sciatica Take 1 Tablet by mouth every 6 hours as needed for Pain, Severe. 20 Tablet 0 09/19/2022 Active Medical Compression StockingsIndicatio ns:Lymphedema of both lower extremities Wear daily as directed. 2 Each 3 09/19/2022 Active traMADol HCl 50 MG Oral Tablet (Ultram)Indication s:Acute pain of left knee Take 1 Tablet by mouth every 6 hours as needed for Pain, Severe. 20 Tablet 0 10/31/2022 Active Levothyroxine Sodium 125 MCG Oral Tablet (Levoxyl)Indicatio ns:Hypothyroidism TAKE 1 TABLET BY MOUTH ONCE DAILY IN THE MORNING 30 MINUTES BEFORE BREAKFAST OR OTHER MEDICATIONS NEED LABS FOR REFILLS 30 Tablet 0 11/13/2022 Active Amitriptyline HCl 10 MG Oral Tablet (Elavil)Indication s:Anxiety TAKE 1 TABLET BY MOUTH AT BEDTIME 90 Tablet 1 11/18/2022 Active Furosemide 20 MG Oral Tablet (Lasix)Indications :Edema, lower extremity Take 1 Tablet by mouth in the morning and 1 Tablet before bedtime. 60 Tablet 0 12/20/2022 Active Furosemide 20 MG Oral Tablet (Lasix)Indications :Edema, lower extremity Take 1 tablet by mouth twice daily 60 Tablet 0 09/13/2022 3 Discontinue d(Refill) documented as of this encounter (statuses as of 12/20/2022) Active Problems Problem Noted Date Diagnosed Date [...] as of this encounter (statuses as of 12/20/2022) Resolved Problems Problem Noted Date Diagnosed Date Resolved Date BMI 45.0-49.9, adult 05/18/2020 021 Overview: Per Obesity protocol Open comedone 06/29/2014 04/11/2017 Other seborrheic keratosis 06/29/2014 0 04/09/2019 Dermatofibroma of right lower leg 07/22/2013 04/09/2019 Pulmonary embolism and infarction 05/02/2013 09/30/2013 Overview: Had Fx ankle with surgery Developed PE Hypercoag workup at [facility] was negative Obesity, morbid (more than [...] as of this encounter (statuses as of 12/20/2022) Immunizations Name Administration Dates Next Due COVID-19 [...] Telephone Encounter - Dominik Camacho DO - 12/20/2022 8:37 AM EDTSigned Prescriptions: Disp Refills Furosemide 20 MG Oral Tablet (Lasix) 60 Tab*0 Sig: Take 1 Tablet by mouth in the morning and 1 Tablet before bedtime. Authorizing Provider: DOMINIK CAMACHO * Telephone Encounter - Frances Garg LPN - 12/19/2022 5:30 PM EDTPending Prescriptions: Disp Refills Furosemide 20 MG Oral Tablet (Lasix) 60 Tab*0 Sig: Take 1 Tablet by mouth in the morning and 1 Tablet before bedtime. * Telephone Encounter - Cristina Dillon - 12/19/2022 4:04 PM EDT Did you pend patient's preferred pharmacy and medication before forwarding?yes Pharmacy: [facility] [address] [place] [address] [place] [address] Pending Prescriptions: Disp Refills Furosemide 20 MG Oral Tablet (Lasix) 60 Tab*0 Sig: Take 1 Tablet by mouth in the morning and 1 Tablet before bedtime. Last Visit: 09/19/2022 (in office), Visit date not found (telemedicine) Next Visit: Visit date not found If no future appointments scheduled, and last appointment is greater than a year ago, please schedule patient for a follow-up appointment Last date the medication was ordered: .26.23 Is this request for a controlled substance?No [...] Additional history exists COVID-19 Vaccine (3 - 2022- season) 2022 05/08/2020, 04/17/2020 Influenza Vaccine (FLU shot) (#1) 2022 01/03/2022, 11/17/2020, 11/17/2020, Additional history exists COLONOSCOPY-EVERY 5 YRS AGES 18-100 03/26/2023 03/26/2018, 08/28/2012, 01/12/1999 Diabetic Foot Exam 09/20/2023 09/19/2022, 06/14/2020 Pneumococcal Vaccine: 65+ Years Completed 10/19/2015, 07/24/2012 Zoster Vaccines Completed 09/29/2019, 03/22, 06/20/2015 VITAMIN D LEVEL ONCE IN A LIFETIME-USE SMARTSET# [id number] Completed 11/17/2020, 10/19/2015, 04/06/2005 GARDASIL-HPV IMMUNIZATION SERIES Aged Out No longer eligible based on patient's age to complete this topic MENINGOCOCCAL (MENACTRA/MENVEO) Aged Out No longer eligible based on patient's age to complete this topic documented as of this encounter Medical Devices Not on filedocumented as of this encounter Visit Diagnoses Diagnosis Edema, lower extremity Edema documented in this encounter Care Teams Lead Oracle Developer Relationship Specialty Start Date End Date Dominik Camacho DO [address] [place] [address] PCP - General Family Medicine 01/02/22 documented as of this encounter
--- OUTSIDE RECORDS SUMMARY | 2023-02-14 23:20 | External Medical Summary | Summary of Care ---
Author Name Unknown Organization [facility] Address [address] [facility] [place] [address] Phone [phone] Care Team Providers Care Brazer Controlled Atmospheric Furnace Name Role Phone Gloria Rojas DO Primary Care Provider [phone] Reason for Referral * Evaluate & Treat - Unlimited Visits (Within 10 days (routine)) - Pending Review Specialty Diagnoses / Procedures Referred By Misbah carmichael Referred To Contact Physical Therapy / Physical Medicine And Rehab Diagnoses Lymphedema Jose Vaughan PA-C [address] [place] [id number] Referral ID Status Reason Start Date Expiration Date Visits Requested Visits Authorized [id number] Pending Review Specialty Services Required [phone] Question Answer Referral Priority Within 10 days (routine) Where should this appointment be scheduled? [facility] Comments Lymphedema therapy Reason for Visit * Reason Comments Other Edema Bilateral lower extr emities, edema. Patient states concerns of cellulitis, states L is worse than right. Patient states onset of worsening x's 3 days. Patient states legs are currently seeping. Encounter Details Date Type Department Care Team (Late st Contact Info) Description 01/04/2023 10:20 AM EST Office Visit General Internal [facility] [address] [place] [address] Jose Vaughan PA-C [address] [facility] [place] [address] Cellulitis of left lower extremity*; Lymphedema Allergies Active Allergy Reactions Criticality Noted Date Comments Benzalkonium Chloride 02/17/1997 Dextromethorphan Hydrochloride 02/17 itch Influenza Vaccines 05/28/2015 Latex High 07/13/2016 Morphine 02/17/1997 severe pain Morphine And Related 04/06/1999 GI pain Naproxen 07/26/2020 Other Allergy (See Comments) Hives High 017 Severe boils and blisters with surgical gonzalo Oxycodone 12/25/2017 Progestins 03/23/1998 hives Promethazine Hcl 02/17/1997 orally - causes nausea, IV SPLICER OPERATOR side effects Silver Sulfadiazine 11/27/2009 Sulfa Antibiotics 04/06/1999 Tetanus Toxoid 11/27/2009 Thimerosal 02/17/1997 pain documented as of this encounter (statuses as of 01/04/2023) Medications Medication Sig Dispensed Refills Start Date [...] as directed. 2 Each 3 09/19/2022 Active Levothyroxine Sodium 125 MCG Oral Tablet [...] before bedtime. 60 Tablet 0 12/20/2022 Active Cephalexin 500 MG Oral CapsuleIndication s:Cellulitis of left lower extremity Take 1 Capsule by mouth in the morning and 1 Capsule at noon and 1 Capsule in the evening and 1 Capsule before bedtime. Do all this for 10 days. 34 Capsule 0 01/04/2023 01/15/20 23 Active Cephalexin 500 MG Oral CapsuleIndication s:Cellulitis, unspecified cellulitis site Take 1 Capsule by mouth in the morning and 1 Capsule at noon and 1 Capsule in the evening and 1 Capsule before bedtime. Do all this for 10 days. 40 Capsule 0 09/07/2022 01/05/20 23 Discontinued traMADol HCl 50 MG Oral Tablet (Ultram)Indicatio ns:Acute pain of left knee Take 1 Tablet by mouth every 6 hours as needed for Pain, Severe. 20 Tablet 0 10/31/2022 01/05/20 23 Discontinued Cephalexin 500 MG Oral CapsuleIndication s:Cellulitis of lower extremity, unspecified laterality Take 1 Capsule by mouth in the morning and 1 Capsule before bedtime. Do all this for 7 days. 14 Capsule 0 01/01/2023 01/05/20 23 Discontinued documented as of this encounter (statuses as of 01/04/2023) Active Problems Problem Noted Date Diagnosed Date [...] as of this encounter (statuses as of 01/04/2023) Resolved Problems Problem Noted Date Diagnosed Date Resolved Date BMI 45.0-49.9, adult 05/18/2020 021 Overview: Per Obesity protocol Open comedone 06/29/2014 04/11/2017 Other seborrheic keratosis 06/29/2014 0 04/09/2019 Dermatofibroma of right lower leg 07/22/2013 04/09/2019 Pulmonary embolism and infarction 05/02/2013 09/30/2013 Overview: Had Fx ankle with surgery Developed PE Hypercoag workup at [facility] was negative Obesity, morbid (more than 1 [...] as of this encounter (statuses as of 01/04/2023) Immunizations Name Administration Dates Next Due COVID-19 [...] Date Smoking Tobacco: Never Smokeless Tobacco: Never Tobacco Cessation:Counseling Given: Not Answered Comments:both parents were chain smokers at home Alcohol Use Standard Drinks/Week [...] on file documented as of this encounter Last Filed Vital Signs Vital Sign Reading Time Taken Comments Blood Pressure 136/68 01/04/2023 10:19 AM EST Pulse 83 01/04/2023 10:19 AM EST Temperature 37.8 C (100.1 F) 01/04/2023 10:19 AM EST Respiratory Rate - - Oxygen Saturation 96% 01/04/2023 10: 19 AM EST Inhaled Oxygen Concentration - - Weight 109.6 kg (241 lb 9.6 oz) 023 10:19 AM EST Height 160.7 cm (5' 3.27") 01/04/2023 1 0:19 AM EST Body Mass Index 42.43 01/04/2023 10:19 AM EST documented in this encounter Progress Notes * Jose Vaughan PA-C - 01/04/2023 10:23 AM EST Subjective: Marylou Alexander is a 77 year old female. Chief Complaint Patient presents with Other Edema Bilateral lower extremities, edema. Patient states concerns of cellulitis, states L is worse than right. Patient states onset of worsening x's 3 days. Patient states legs are currently seeping. HPI: 77 y/o female with hx below seen today with complaint of recurrent cellulitis stemming from poorly controlled lymphedema. She was prescribed keflex 500 mg BID by PCP since sending in message about her concern. Has had 101 fever, chills. Legs turning yost red with drainage. Has had issues with drainage and recurrent infection for last 6.5 months. Has compression machine at home, but has not used secondary to current state. Has not seen lymphedema therapist. 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 Irritable bowel syndrome K58.9 MENOPAUSE - age 51 Z78.0 Age-related osteoporosis without current pathological fracture M81.0 ADVANCE DIRECTIVE INFORMATION Neoplasm of uncertain behavior of skin D48.5 Inflamed seborrheic keratosis L82.0 History of basal cell carcinoma Z85.828 Other specified hypothyroidism E03.8 Elevated blood pressure, situational R03.0 Diabetes mellitus without complication (HCC) E11.9 Body mass index (BMI) of 40.0 to 44.9 in adult (HCC) Z68.41 Melanoma in situ of cheek (HCC) D03.39 Fibromyalgia M79.7 Current Outpatient Medications Medication Sig Dispense Refill CINNAMON 500 MG PO CAPS Take 1 Capsule by mouth in the morning. D-3-5 5000 UNITS PO CAPS 2 daily NATURAL SUPPLEMENT Eye pressure support with mirtogenol - per fransisco 1 Tab 0 ONETOUCH DELICA LANCETS FINE MISC Test Blood Glucose once daily E11.9 100 Each 5 Glucose Blood (ONETOUCH VERIO) STRP Test Blood Glucose once daily E11.9 100 Strip 5 Blood Glucose Monitoring Suppl (RELION CONFIRM GLUCOSE MONITOR) w/Device KIT Use to test BG values 1 Kit 0 Blood Glucose Monitoring Suppl (RELION PRIME MONITOR) LAVELLE Use to test BG once daily DX E11.9 1 Device 0 Glucose Blood (RELION PRIME TEST) STRP To test blood glucose once daily DX E11.9 100 Strip 1 Turmeric 500 MG Capsule Take 1 Capsule by mouth in the morning. Bilberry 1000 MG Oral Capsule Take by mouth. metFORMIN HCl ER 500 MG Oral Tablet Extended Release 24 Hour (Glucophage XR) Take 2 tablets by mouth once daily 180 Tablet 1 Alendronate Sodium 70 MG Oral Tablet (Fosamax) Take by mouth 1 Tablet once a week . with 8 oz. water 30 minutes before first meal of the day. Remain upright for 30 min after taking tablet 5 Tablet 11 NATURAL SUPPLEMENT Take by mouth daily. Visi free eye drops traMADol HCl 50 MG Oral Tablet (Ultram) Take 1 Tablet by mouth every 6 hours as needed for Pain, Severe. 20 Tablet 0 Medical Compression Stockings Wear daily as directed. 2 Each 3 Levothyroxine Sodium 125 MCG Oral Tablet (Levoxyl) TAKE 1 TABLET BY MOUTH ONCE DAILY IN THE [id number] MINUTES BEFORE BREAKFAST OR OTHER MEDICATIONS NEED LABS FOR REFILLS 30 Tablet 0 Amitriptyline HCl 10 MG Oral Tablet (Elavil) TAKE 1 TABLET BY MOUTH AT BEDTIME 90 Tablet 1 Furosemide 20 MG Oral Tablet (Lasix) Take 1 Tablet by mouth in the morning and 1 Tablet before bedtime. 60 Tablet 0 Cephalexin 500 MG Oral Capsule Take 1 Capsule by mouth in the morning and 1 Capsule at noon and 1 Capsule in the evening and 1 Capsule before bedtime. Do all this for 10 days. 34 Capsule 0 No current facility-administered medications for this visit. Review of patient's allergies indicates: Allergen Reactions Latex Other Allergy (See Comments) Hives Severe boils and blisters with surgical gonzalo Benzalkonium Chloride Dextromethorphan Hydrochloride itch Influenza Vaccines Morphine severe pain Morphine And Related GI pain Naprosyn [Naproxen] Oxycodone Progestins hives Promethazine Hcl orally - causes nausea, IV SPLICER OPERATOR side effects Silvadene [Silver Sulfadiazine] Sulfa Antibiotics Tetanus Toxoid Thimerosal pain All other review of systems reviewed and negative other than mentioned in HPI. Objective: BP 136/68 | Pulse 83 | Temp 37.8 C (100.1 F) | Ht 1.607 m (5' 3.27") | Wt 109.6 kg (241 lb 9.6 oz) | SpO2 96% | BMI 42.43 kg/m | BSA 2.21 m Results for orders placed or performed in visit on 05/17/21 TSH WITH FREE T4 IF INDICATED Result Value Ref Range TSH 3.35 0.27 - 4.20 uIU/mL BASIC METABOLIC PANEL Result Value Ref Range BUN 11 6 - 20 mg/dL Creatinine 0.7 0.5 - 1.0 mg/dL Estimated Glomerular Filtration Rate 90 >=60 mL/min Sodium 139 135 - 146 mmol/L Potassium 3.8 3.5 - 5.1 mmol/L Chloride 101 98 - 107 mmol/L CO2 25 22 - 32 mmol/L Anion Gap 13 7 - 15 mmol/L Glucose 108 70 - 120 mg/dL Calcium 9.7 8.4 - 10.2 mg/dL HEMOGLOBIN A1C Result Value Ref Range Hemoglobin A1C 7.1 (H) 4.0 - 5.6 % Estimated Average Glucose 157 (H) <126 mg/dL Physical Exam Musculoskeletal: Right lower leg: Edema present. Left lower leg: Edema present. Comments: Pitting and nonpitting edema with lipodermatoslerosis changes and box car toes. Erythema and warm stemming from medial aspect of distal third of tubbs. Serous weeping noted. ASSESSMENT: Cellulitis of left lower extremity (Primary) - Cephalexin 500 MG Oral Capsule; Take 1 Capsule by mouth in the morning and 1 Capsule at noon and 1 Capsule in the evening and 1 Capsule before bedtime. Do all this for 10 days. Recommend increasing to dosing above. Has take 6 doses so will provide more tablet to get her to above dosing. If fever and redness worsens, she should proceed to ER. Lymphedema - PHYSICAL THERAPY REFERRAL OP Recommend atlas or energy for therapy then use home compression to maintain. This will help reduce recurrence rates of cellulitis. No open ulcers at this time. Follow Up: Return if symptoms worsen or fail to improve. Jose Vaughan PA-C documented in this encounter Nursing Notes * Marcia Jara LPN - 01/04/2023 10:18 AM EST Chief Complaint Patient presents with Other Edema Bilateral lower extremities, edema. Patient states concerns of cellulitis, states L is worse than right. Patient states onset of worsening x's 3 days. Patient states legs are currently seeping. documented in this encounter Plan of Treatment Upcoming Encounters Date Type Department Care Team (Late st Contact Info) Description 06/06/2023 5:40 PM EDT Office Visit [facility] [place] [address] [place] [address] Gloria Rojas DO [address] [place] [address] Scheduled Procedures Name Priority Associated Diagnoses Date/Ti me COLONOSCOPY FLEXIBLE PROXIMAL DIAGNOSTIC Recall Hx of colonic polyps Scheduled Referrals Name Type Priority Associated Diagnoses Orde r Schedule PHYSICAL THERAPY REFERRAL OP Referral Within 10 days (routine) Lymphedema Ordered: 01/04/2023 Health Maintenance Due Date Last Done Comments Hepatitis B (1 of 3 - Risk 3-dose series) 2006 B-12 05/18/2021 05/18/2020, 04/09/2019 Depression Screening 05/18/2021 05/18/2020 HbA1c 11/17/2021 05/17/2021, 10/21, 06/14/2020, Additional history exists Diabetic Eye Exam 03/25/2022 03/25/2021, 11/23/2020 Albumin/Creatinine Ratio 05/17/2022 05/17/2021, 050 08/2020 [...] D LEVEL ONCE IN A LIFETIME-USE SMARTSET# [id number] Completed 11/17/2020, 10/19/2015, 04/06/2005 GARDASIL-HPV IMMUNIZATION SERIES Aged Out No longer eligible based on patient's age to complete this topic MENINGOCOCCAL (MENACTRA/MENVEO) Aged Out No longer eligible based on patient's age to complete this topic documented as of this encounter Medical Devices Not on filedocumented as of this encounter Visit Diagnoses Diagnosis Cellulitis of left lower extremity- Primary Cellulitis and abscess of leg, except foot Lymphedema Other lymphedema documented in this encounter Care Teams Brazer Controlled Atmospheric Furnace Relationship Specialty Start Date End Date Gloria Rojas DO [address] [place] [address] PCP - General Family Medicine 01/02/22 documented as of this encounter
--- OUTSIDE RECORDS SUMMARY | 2023-02-14 23:20 | External Medical Summary | Summary of Care ---
Author Name Unknown Organization [facility] Address [address] [facility] [address] Phone [phone] Care Team Providers Care Streetcar Operator Name Role Phone Dominik Camacho DO Primary Care Provider [phone] Reason for Visit * Reason Comments eRx-Medication Refill Encounter Details Date Type Department Care Team Description 11/17/2022 Refill Family Practice [facility] [address] [place] [address] Dominik Camacho DO [address] [place] [address] Anxiety Allergies Active Allergy Reactions Severity Noted Date Comments Benzalkonium Chloride 02/17/1997 Dextromethorphan Hydrochloride 02/17 itch Influenza Vaccines 05/28/2015 Latex High 07/13/2016 Morphine 02/17/1997 severe pain Morphine And Related 04/06/1999 GI pain Naproxen 07/26/2020 Other Allergy (See Comments) Hives High 017 Severe boils and blisters with surgical gonzalo Oxycodone 12/25/2017 Progestins 03/23/1998 hives Promethazine Hcl 02/17/1997 orally - causes nausea, IV HIGH LIGHTER side effects Silver Sulfadiazine 11/27/2009 Sulfa Antibiotics 04/06/1999 Tetanus Toxoid 11/27/2009 Thimerosal 02/17/1997 pain documented as of this encounter (statuses as of 11/18/2022) Medications Medication Sig Dispensed Refills Start Date [...] 12/01/2021 Active Furosemide 20 MG Oral Tablet (Lasix)Indication [...] AT BEDTIME 90 Tablet 1 11/18/2022 Active Amitriptyline HCl 10 MG Oral Tablet (Elavil)Indicatio ns:Anxiety Take 1 Tablet by mouth at bedtime. 90 Tablet 0 08/25/2022 11/19/19 23 Discontinued documented as of this encounter (statuses as of 11/18/2022) Active Problems Problem Noted Date Fibromyalgia 07/20/2021 [...] as of this encounter (statuses as of 11/18/2022) Resolved Problems Problem Noted Date Resolved Date BMI 45.0-49.9, adult 05/18/2020 07/01/2020 Overview: Per Obesity protocol Open comedone 06/29/2014 04/11/2017 Other seborrheic keratosis 06/29/201404/09 Dermatofibroma of right lower leg 07/22/2013 04/09/2019 Pulmonary embolism and infarction 05/02/2013 09/30/2013 Overview: Had Fx ankle with surgery Developed PE Hypercoag workup at [facility] was negative Obesity, morbid (more than [...] as of this encounter (statuses as of 11/18/2022) Immunizations Name Administration Dates Next Due COVID-19 [...] encounter Miscellaneous Notes * Telephone Encounter - Peng Talavera [facility] - 11/18/2022 1:43 PM EDTSigned Prescriptions: Disp Refills Amitriptyline HCl 10 MG Oral Tablet (Elavi*90 Tab*1 Sig: TAKE 1 TABLET BY MOUTH AT BEDTIMEAuthorizing Provider: DOMINIK CAMACHO User: PENG TALAVERA documented in this encounter Plan of Treatment [...] D LEVEL ONCE IN A LIFETIME-USE SMARTSET# [id number] Completed 11/17/2020, 10/19/2015, 04/06/2005 GARDASIL-HPV IMMUNIZATION SERIES [...] as of this encounter Visit Diagnoses Diagnosis Anxiety Anxiety state, unspecified documented in this encounter Care Teams Streetcar Operator Relationship Specialty Start Date End Date Dominik Camacho, DO [address] [place] [address] PCP - General Family Medicine 01/02/22 documented as of this encounter
--- NOTE | 2023-02-14 23:49 | Emergency Department Note ---
Impression & Plan Lymphedema, Cellulitis of right lower extremity ED Provider Note CHIEF COMPLAINT: Right ankle pain, leg infection HISTORY OF PRESENT ILLNESS: This 77-year-old female patient with past medical history of multiple medication allergies, chronic lymphedema, fibromyalgia, pulmonary embolus, diabetes presents to the emergency department with complaints of right lower extremity pain at the ankle and redness. Patient states she has been dealing with lymphedema for many years. She was treated in December with Keflex for cellulitis. She states she has had the redness in the right leg greater than left leg for approximately 5 days. She did have symptomatic chills and sweats. She denies any chest pain, shortness of breath, urinary symptoms, vomiting and diarrhea. REVIEW OF SYSTEMS: A review of systems was performed with positives and pertinent negatives listed in the history of present illness. 10 systems were reviewed and are otherwise negative. ALLERGIES: see below MEDICATIONS: see below PMH: see below SOCIAL HISTORY: see below DDx: Cellulitis, DVT, sepsis, viral etiology, UTI among others. PHYSICAL EXAM: Vital signs reviewed. General: Chronically ill, obese 77-year-old female in no significant distress. HEENT: No scleral icterus, PERRLA, neck supple. Atraumatic. Cardiovascular: Regular rate and rhythm, no extra sounds. Pulmonary: Clear to auscultation bilaterally, normal work of breathing. Abdomen: Soft, nontender, nondistended, positive bowel sounds. Musculoskeletal: Marked lymphedema to the bilateral lower extremities with crusting and minimal drainage of the left lower extremity. The right lower extremity is beefy red erythema to the proximal calf and tubbs. Mildly tender to palpation. Neurologic: Patient awake alert and oriented x 3, speech is clear Skin: Warm, dry, no rash EMERGENCY DEPARTMENT COURSE/MDM: This patient was evaluated and appeared to be in no significant distress. IV access was obtained and laboratory work was drawn. The patient was placed on the surveillance monitor noted to be in normal sinus rhythm. Blood cultures and lactate were performed. The patient's WBC is 22,000 with a lactate of 2.2. Patient's vital signs have remained stable. She did receive IV hydration 1 L of normal saline solution and 2 g of cefepime. With symptomatic fevers, elevated WBC and a large right lower extremity cellulitis, the case was discussed with the hospitalist service who will evaluate the patient for admission and further management. MONITORING: An order for cardiac monitoring was placed and the patient is noted to be in a NSR at 80 beats per minute. RADIOLOGY: Ultrasound of the right lower extremity per radiology reveals no evidence of DVT. Chest x-ray to my interpretation and radiology's over read is negative for focal lung consolidation or failure. DISPOSITION: Admission Past Med/Surg History Medical History (Updated 02/14/23 @ 23:56 by Corie Morley MD) History of hepatitis as a child Hypothyroidism Glaucoma bilt Migraine Hypothyroidism PE (pulmonary embolism) (04/28/13) Fibromyalgia Surgical History History of dilatation and curettage x2 History of total abdominal hysterectomy and bilateral salpingo-oophorectomy History of open reduction and internal fixation (ORIF) procedure left ankle---screws, jim, plate in place S/P foot surgery, right History of wisdom tooth extraction History of tonsillectomy History of surgical procedure on eye proper using laser bilt eyes H/O tubal ligation History of cholecystectomy Family History Sister Family history of diabetes mellitus Other No family history of adverse response to anesthesia Social History Smoking Status: Never smoker Second Hand Exposure: Yes (parents smoked); Do You Dip or Chew Tobacco: No; Hx Alcohol Use: No Hx Substance Use: No Preferred Language: Romanian Communication Ability: Effective Seafood Clerk Required: No Beliefs That Will Affect Care: None marital status: Current Living Situation: Spouse Feels Safe at Home: Yes Assistive Devices: Glasses Allergies Allergies Allergy/AdvReac Type Severity Reaction Status Date / Time oxycodone Allergy Mild itching Verified 02/14/23 20:21 benzalkonium chloride Allergy Unknown CONTACT Verified 02/14/23 20:21 SWELLING/PAIN codeine Allergy Unknown GALLBLADDER Verified 02/14/23 20:21 ATTACK LIKE SYMPTOMS dextromethorphan Allergy Unknown ITCHY Verified 02/14/23 20:21 latex Allergy Unknown CONTACT Verified 02/14/23 20:21 DERMATITIS/WELTS nickel Allergy Unknown BOILS Verified 02/14/23 20:21 Progestins Allergy Unknown per PCP Verified 02/14/23 20:21 note Sulfa (Sulfonamide Allergy Unknown BLISTERS? Verified 02/14/23 20:21 Antibiotics) tetanus toxoid, adsorbed Allergy Unknown UNCONSCIOUS Verified 02/14/23 20:21 NESS thimerosal Allergy Unknown EYE Verified 02/14/23 20:21 SWELLING/PAIN morphine AdvReac Intermediate PAIN/PROJECTILE Verified 02/14/23 20:21 VOMITTING Influenza Virus Vaccines AdvReac Unknown Avoids Verified 02/14/23 20:21 secondary to thimerosal allergy promethazine AdvReac Unknown CONFUSION/D Verified 02/14/23 20:21 ISORIENTED silver sulfadiazine AdvReac Unknown BOILS Verified 02/14/23 20:21 magnesium AdvReac pain Verified 02/14/23 20:21 stomach Hydrochloride Allergy Unknown per PCP Uncoded 02/14/23 20:21 note [place] Allergy Unknown Boils Uncoded 02/14/23 20:21 Home Meds Home Medications Medication Instructions Recorded Confirmed cinnamon bark 500 mg capsule 500 mg PO QAM 03/18/18 02/14/23 (Cinnamon) levothyroxine 125 mcg tablet 125 mcg PO QPM 03/18/18 02/14/23 Turmeric Curcumin W/ Bioperine 1,950 mg PO DAILY 03/26/21 02/14/23 alendronate 70 mg tablet 70 mg PO WK 03/26/21 02/14/23 bilberry fruit 1,000 mg capsule 1 g PO DAILY 03/26/21 02/14/23 furosemide 20 mg tablet 40 mg PO DAILY 03/26/21 02/14/23 metformin 500 mg tablet,extended 500 mg PO QPM 03/26/21 11/11/22 release 24 hr amitriptyline 10 mg tablet 10 mg PO HS 03/28/21 02/14/23 cholecalciferol (vitamin D3) 25 25 mcg PO DAILY 03/28/21 02/14/23 mcg (1,000 unit) tablet (Vitamin D3) Visi Free Cap 1 tab PO BID 09/11/22 02/14/23 Life Extension Eye Pressure Support 1 cap PO DAILY 11/11/22 02/14/23 Results & Data (ED) Vital Signs Vital Signs - 24 hr 02/14/23 16:49 02/14/23 21:35 02/14/23 21:36 Temperature 36.6 C Temperature Source Temporal Artery Scan Pulse Rate 80 92 H 72 Pulse Rate from SpO2 Sensor 73 71 Respiratory Rate 18 22 24 Respiratory Effort / Characteristics Non-Labored Spontaneous Respiratory Depth Normal Respiratory Pattern Regular Blood Pressure 130/76 Blood Pressure Mean 94 Pulse Oximetry 94 98 94 Oxygen Delivery Method Room Air Sepsis Recent Fever Within 48 Hours Yes Sepsis New/Unexplained Change in Mental Status N/A Sepsis Action Taken by Nursing No Action Required 02/14/23 21:36 02/14/23 22:00 02/14/23 22:00 Temperature Temperature Source Pulse Rate 70 Pulse Rate from SpO2 Sensor 67 Respiratory Rate 23 Respiratory Effort / Characteristics Respiratory Depth Respiratory Pattern Blood Pressure 120/62 127/63 Blood Pressure Mean 78 93 Pulse Oximetry 98 Oxygen Delivery Method Sepsis Recent Fever Within 48 Hours Sepsis New/Unexplained Change in Mental Status Sepsis Action Taken by Nursing 02/14/23 22:30 02/14/23 22:30 02/14/23 23:00 Temperature Temperature Source Pulse Rate 68 68 Pulse Rate from SpO2 Sensor 68 68 Respiratory Rate 23 23 Respiratory Effort / Characteristics Respiratory Depth Respiratory Pattern Blood Pressure 120/66 Blood Pressure Mean 73 Pulse Oximetry 94 95 Oxygen Delivery Method Sepsis Recent Fever Within 48 Hours Sepsis New/Unexplained Change in Mental Status Sepsis Action Taken by Nursing 02/14/23 23:00 Temperature Temperature Source Pulse Rate Pulse Rate from SpO2 Sensor Respiratory Rate Respiratory Effort / Characteristics Respiratory Depth Respiratory Pattern Blood Pressure 123/63 Blood Pressure Mean 82 Pulse Oximetry Oxygen Delivery Method Sepsis Recent Fever Within 48 Hours Sepsis New/Unexplained Change in Mental Status Sepsis Action Taken by [place] Medications Current Medication List: was personally reviewed by me Laboratory Data Attestation: I reviewed the patient's lab results. 02/14/23 17:22 02/14/23 17:22 Lab Results 02/14/23 02/14/23 02/14/23 Range/Units 16:54 17:22 17:38 WBC 22.40 H (4.8-10.8) K/ul RBC 5.19 (4.20-5.40) M/uL Hgb 14.7 (12.0-16.0) g/dl Hct 45.2 (37.0-47.0) % MCV 87.1 (80.0-100.0) fL MCH 28.3 (25.0-34.0) pg MCHC 32.5 (32.0-36.0) g/dL RDW Std Deviation 44.5 (36.4-46.3) fL RDW Coeff of Greg 13.9 (11.5-14.5) % Plt Count 172 (130-400) K/uL MPV 11.2 (9.4-12.4) fL Immature Gran % (Auto) 0.9 % Neut % (Auto) 76.0 % Lymph % (Auto) 17.5 % Hitchcock % (Auto) 5.3 % Eos % (Auto) 0.0 % Baso % (Auto) 0.3 % Neut # (Auto) 17.03 H (1.40-6.50) K/uL Lymph # (Auto) 3.92 H (1.20-3.40) K/uL Hitchcock # (Auto) 1.18 H (0.11-0.59) K/uL Eos # (Auto) 0.00 (0.00-0.50) K/uL Baso # (Auto) 0.06 (0.00-0.20) K/uL Immature Gran # (Auto) 0.21 H (0.01-0.20) K/uL Sodium 135 L (136-145) mmol/L Potassium 3.5 (3.5-5.1) mmol/L Chloride 101 (98-107) mmol/L Carbon Dioxide 23 (21-32) mmol/L Anion Gap 11 (3-11) BUN 12 (6-23) mg/dl Creatinine 0.72 (0.6-1.2) mg/dl Est Cr Clr Drug Dosing Not Reportable Est GFR ( Amer) 94.3 ml/min Est GFR (Non-Af Amer) 81.3 ml/min BUN/Creatinine Ratio 16.7 (10-20) Glucose 148 H (70-99(Fasting)) mg/dl Lactate (0.4-2.0) mmol/L Calcium 9.2 (8.6-10.3) mg/dl Total Bilirubin 1.9 H (0.2-1.0) mg/dl AST 35 (13-39) U/L ALT 29 (7-52) U/L Alkaline Phosphatase 159 H (34-104) U/L Total Protein 7.6 (6.0-8.3) gm/dl Albumin 3.8 (3.4-5.0) gm/dl Globulin 3.8 (2.5-4.0) gm/dl Albumin/Globulin Ratio 1.0 (0.9-2) Urine Color Yellow Urine Appearance Clear (Clear) Urine pH 5.0 (4.5-7.5) Ur Specific Eek 1.014 (1.000-1.030) Urine Protein Negative (Negative) Urine Glucose (UA) Negative (Negative) Urine Ketones Negative (Negative) Urine Blood Negative (Negative) Urine Nitrite Negative (Negative) Urine Bilirubin Negative (Negative) Urine Urobilinogen Negative (Negative) Ur Leukocyte Esterase Negative (Negative) SARS-CoV-2 (PCR) NEGATIVE (Negative) Influenza Type A (PCR) Negative (Neg) Influenza Type B (PCR) Negative (Neg) RSV (RT-PCR) Negative (Neg) 02/14/23 Range/Units 21:35 WBC (4.8-10.8) K/ul RBC (4.20-5.40) M/uL Hgb (12.0-16.0) g/dl Hct (37.0-47.0) % MCV (80.0-100.0) fL MCH (25.0-34.0) pg MCHC (32.0-36.0) g/dL RDW Std Deviation (36.4-46.3) fL RDW Coeff of Greg (11.5-14.5) % Plt Count (130-400) K/uL MPV (9.4-12.4) fL Immature Gran % (Auto) % Neut % (Auto) % Lymph % (Auto) % Hitchcock % (Auto) % Eos % (Auto) % Baso % (Auto) % Neut # (Auto) (1.40-6.50) K/uL Lymph # (Auto) (1.20-3.40) K/uL Hitchcock # (Auto) (0.11-0.59) K/uL Eos # (Auto) (0.00-0.50) K/uL Baso # (Auto) (0.00-0.20) K/uL Immature Gran # (Auto) (0.01-0.20) K/uL Sodium (136-145) mmol/L Potassium (3.5-5.1) mmol/L Chloride (98-107) mmol/L Carbon Dioxide (21-32) mmol/L Anion Gap (3-11) BUN (6-23) mg/dl Creatinine (0.6-1.2) mg/dl Est Cr Clr Drug Dosing Est GFR ( Amer) ml/min Est GFR (Non-Af Amer) ml/min BUN/Creatinine Ratio (10-20) Glucose (70-99(Fasting)) mg/dl Lactate 2.2 H* (0.4-2.0) mmol/L Calcium (8.6-10.3) mg/dl Total Bilirubin (0.2-1.0) mg/dl AST (13-39) U/L ALT (7-52) U/L Alkaline Phosphatase (34-104) U/L Total Protein (6.0-8.3) gm/dl Albumin (3.4-5.0) gm/dl Globulin (2.5-4.0) gm/dl Albumin/Globulin Ratio (0.9-2) Urine Color Urine Appearance (Clear) Urine pH (4.5-7.5) Ur Specific Eek (1.000-1.030) Urine Protein (Negative) Urine Glucose (UA) (Negative) Urine Ketones (Negative) Urine Blood (Negative) Urine Nitrite (Negative) Urine Bilirubin (Negative) Urine Urobilinogen (Negative) Ur Leukocyte Esterase (Negative) SARS-CoV-2 (PCR) (Negative) Influenza Type A (PCR) (Neg) Influenza Type B (PCR) (Neg) RSV (RT-PCR) (Neg) Administered Medications Discontinued Medications Cefepime HCl (Maxipime) 2,000 mg in 20 mls @ 5 mls/min IV NOW STA; Protocol Stop: 02/14/23 20:49 Last Admin: 02/14/23 22:11 Dose: 5 mls/min Documented By: [facility] Imaging Data Radiologist's Impression: Venous Doppler Study 02/14/23 16:53 RIGHT LOWER EXTREMITY VENOUS DOPPLER CLINICAL HISTORY: Right leg swelling. COMPARISON STUDY: Bilateral lower extremity venous Doppler ultrasound September 11, 2022. TECHNIQUE: Sonography of the deep venous system of the right lower extremity was performed. Compression and augmentation were evaluated. FINDINGS: The right common femoral, superficial femoral and popliteal veins were compressible. Augmentation was normal. Flow was shown within the deep calf vessels although calf vessels were suboptimally assessed due to lower extremity edema. IMPRESSION: No evidence of deep venous thrombus within the right lower extremity. Calf vessels suboptimally assessed due to lower extremity edema. ACT 112: Negative or not required by law. Electronically signed by: Wilber Spaulding M.D. 02/14/2023 6:51 PM Chest X-Ray 02/14/23 16:55 SINGLE VIEW CHEST CLINICAL HISTORY: Fever FINDINGS: A PA chest radiograph is compared to study dated 03/28/2021 and correlated with chest CT dated 11/11/2022. The heart is enlarged. The pulmonary vasculature is noncongested. There is mild bibasilar atelectasis. The lungs and pleural spaces are otherwise clear. No pneumothorax is seen. The skeletal structures are osteopenic. The bony thorax is grossly intact. IMPRESSION: No active disease in the chest. ACT 112: Negative or not required by law. Electronically signed by: Juancarlos Ellsworth M.D. 02/14/2023 5:50 PM Discharge Plan Visit Data Chief Complaint: Flu Like Symptoms Stated Complaint: FLU LIKE SYMPTOMS, VOMITING,EDEMA TO RT ANKLE/PAIN ED Provider: Corie Morley Discharge Problem: Lymphedema, Cellulitis of right lower extremity Forms Stand Alone Forms: My [facility] Azimo Prescriptions Prescriptions: No Action levothyroxine 125 mcg Tablet 125 mcg PO QPM cinnamon bark [Cinnamon] 500 mg Capsule 500 mg PO QAM alendronate 70 mg tablet 70 mg PO WK Rx Instructions: tuesdays furosemide 20 mg tablet 40 mg PO DAILY metformin 500 mg tablet extended release 24 hr 500 mg PO QPM bilberry fruit 1,000 mg Capsule 1 g PO DAILY Turmeric Curcumin W/ Bioperine 1,950 mg PO DAILY amitriptyline 10 mg tablet 10 mg PO HS cholecalciferol (vitamin D3) [Vitamin D3] 25 mcg (1,000 unit) Tablet 25 mcg PO DAILY Life Extension Eye Pressure Support 1 cap PO DAILY Visi Free Cap 1 tab PO BID Referrals Referrals: Gloria Rojas DO [Primary Care Provider] -
--- NOTE | 2023-02-14 23:51 | History & Physical Report ---
Date of Service February 14, 2023 Assessment & Plan (1) Lower extremity cellulitis: Plan: 77-year-old female with past med history significant for diabetes, hypothyroidism, hypertension situational, morbid obesity, irritable bowel syndrome, fibromyalgia comes because of flulike symptoms and right lower EXTR cellulitis. Patient says last few days she is having nausea, vomiting and fevers not feeling well and also noticed right ankle is painful and erythema tous. She has some runny nose since last Sunday. Appetite is down since last Sunday. No headache. No cough. No sore throat. No chest pain or shortness of breath. No abdominal pain. No diarrhea. Normal bladder movements. Hemodynamically stable. Right lower EXTR cellulitis Doppler is negative Possible early sepsis with elevated white count and lactic acid 2.2 Start on IV cefepime and Dapto mycin IV fluids Will monitor the response Diabetes Hold metformin Sliding scale Will monitor Hypothyroidism On Synthyroid Lower extremity edema On Lasix which is on hold Monitor for volume overload DVT prophylaxis Lovenox Disposition Med/daily History of Present Illness Chief Complaint: Right lower EXTR cellulitis and flulike symptoms Primary Care Provider: Gloria Rojas, 77-year-old female with past med history significant for diabetes, hypothyroidism, hypertension situational, morbid obesity, irritable bowel syndrome, fibromyalgia comes because of flulike symptoms and right lower EXTR cellulitis. Patient says last few days she is having nausea, vomiting and fevers not feeling well and also noticed right ankle is painful and erythematous. She has some runny nose since last Sunday. Appetite is down since last Sunday. No headache. No cough. No sore throat. No chest pain or shortness of breath. No abdominal pain. No diarrhea. Normal bladder movements. Hemodynamically stable. Past medical history. As mentioned above Past surgical history. Colonoscopy. Colonoscopy with biopsy. Dilatation and curettage. Foot surgery. Bilateral cataracts. Ligation of oviducts. Cholecystectomy. Total abdominal hysterectomy with bilateral salpingo- oophorectomy. Social history. . No smoking. Alcohol rare. No drug use. Family history. Sister had leukemia. Sister has diabetes. Father had hypertension. COPD. Stroke. Mother had hypertension. Parkinson's and dementia. Allergies Allergy/AdvReac Type Severity Reaction Status Date / Time oxycodone Allergy Mild itching Verified 02/14/23 20:21 benzalkonium chloride Allergy Unknown CONTACT Verified 02/14/23 20:21 SWELLING/PAIN codeine Allergy Unknown GALLBLADDER Verified 02/14/23 20:21 ATTACK LIKE SYMPTOMS dextromethorphan Allergy Unknown ITCHY Verified 02/14/23 20:21 latex Allergy Unknown CONTACT Verified 02/14/23 20:21 DERMATITIS/WELTS nickel Allergy Unknown BOILS Verified 02/14/23 20:21 Progestins Allergy Unknown per PCP Verified 02/14/23 20:21 note Sulfa (Sulfonamide Allergy Unknown BLISTERS? Verified 02/14/23 20:21 Antibiotics) tetanus toxoid, adsorbed Allergy Unknown UNCONSCIOUS Verified 02/14/23 20:21 NESS thimerosal Allergy Unknown EYE Verified 02/14/23 20:21 SWELLING/PAIN morphine AdvReac Intermediate PAIN/PROJECTILE Verified 02/14/23 20:21 VOMITTING Influenza Virus Vaccines AdvReac Unknown Avoids Verified 02/14/23 20:21 secondary to thimerosal allergy promethazine AdvReac Unknown CONFUSION/D Verified 02/14/23 20:21 ISORIENTED silver sulfadiazine AdvReac Unknown BOILS Verified 02/14/23 20:21 magnesium AdvReac pain Verified 02/14/23 20:21 stomach Home Medications Medication Instructions Recorded Confirmed Type cinnamon bark 500 mg capsule 500 mg PO QAM 03/18/18 02/14/23 History (Cinnamon) levothyroxine 125 mcg tablet 125 mcg PO QPM 03/18/18 02/14/23 History Turmeric Curcumin W/ Bioperine 1,950 mg PO DAILY 03/26/21 02/14/23 History alendronate 70 mg tablet 70 mg PO WK 03/26/21 02/14/23 History bilberry fruit 1,000 mg capsule 1 g PO DAILY 03/26/21 02/14/23 History furosemide 20 mg tablet 40 mg PO DAILY 03/26/21 02/14/23 History metformin 500 mg tablet,extended 500 mg PO QPM 03/26/21 11/11/22 History release 24 hr amitriptyline 10 mg tablet 10 mg PO HS 03/28/21 02/14/23 History cholecalciferol (vitamin D3) 25 25 mcg PO DAILY 03/28/21 02/14/23 History mcg (1,000 unit) tablet (Vitamin D3) Visi Free Cap 1 tab PO BID 09/11/22 02/14/23 History Life Extension Eye Pressure Support 1 cap PO DAILY 11/11/22 02/14/23 History Past Med/Surg History Medical History (Updated 02/14/23 @ 23:56 by Corie Morley MD) History of hepatitis as a child Hypothyroidism Glaucoma bilt Migraine Hypothyroidism PE (pulmonary embolism) (04/28/13) Fibromyalgia Surgical History History of dilatation and curettage x2 History of total abdominal hysterectomy and bilateral salpingo-oophorectomy History of open reduction and internal fixation (ORIF) procedure left ankle---screws, jim, plate in place S/P foot surgery, right History of wisdom tooth extraction History of tonsillectomy History of surgical procedure on eye proper using laser bilt eyes H/O tubal ligation History of cholecystectomy Family History Sister Family history of diabetes mellitus Other No family history of adverse response to anesthesia Social History Smoking Status: Never smoker Second Hand Exposure: Yes (parents smoked); Do You Dip or Chew Tobacco: No; Hx Alcohol Use: No Hx Substance Use: No Preferred Language: Grenadian Communication Ability: Effective District Sales Leader Required: No Beliefs That Will Affect Care: None marital status: Current Living Situation: Spouse Other Information That Helps Us Care for You: No Feels Safe at Home: Yes Safety Concerns: Feels Safe At This Time Assistive Devices: Glasses Review of Systems Review of Systems: All systems reviewed & are unremarkable except as noted in HPI & below Physical Exam Physical Exam: General- Not in distress Head- atraumatic Eyes- PERRL. ENT- oropharynx clear Neck- supple, no JVD. Lungs- clear to auscultation no wheezing or crackles. Heart- regular rhythm; no murmur, no gallop. Abdomen- normal bowel sounds, soft, nontender, no distension. Extremities- b/l lower extremity lymphedema and chronic skin changes seen.Right lower extremity is more swollen and erythematous. Neuro- alert, oriented x 3; PERRL, no facial palsy; no dysarthria; moves extremities. Results & Data Results & Data Vital Signs (Past 12 Hours) Vital Signs Temp Pulse Resp BP Pulse Ox O2 Del Method 02/14/23 23:00 123/63 02/14/23 23:00 68 23 95 02/14/23 22:30 120/66 02/14/23 22:30 68 23 94 02/14/23 22:00 127/63 02/14/23 22:00 70 23 98 02/14/23 21:36 120/62 02/14/23 21:36 72 24 94 02/14/23 21:35 92 H 22 98 02/14/23 16:49 36.6 C 80 18 130/76 94 Room Air Diagnostic Findings Laboratory Results WBC 22.40 K/ul (4.8-10.8) H 02/14/23 17:22 RBC 5.19 M/uL (4.20-5.40) 02/14/23 17:22 Hgb 14.7 g/dl (12.0-16.0) 02/14/23 17:22 Hct 45.2 % (37.0-47.0) 02/14/23 17:22 MCV 87.1 fL (80.0-100.0) 02/14/23 17:22 MCH 28.3 pg (25.0-34.0) 02/14/23 17:22 MCHC 32.5 g/dL (32.0-36.0) 02/14/23 17:22 RDW Std Deviation 44.5 fL (36.4-46.3) 02/14/23 17:22 RDW Coeff of Greg 13.9 % (11.5-14.5) 02/14/23 17:22 Plt Count 172 K/uL (130-400) 02/14/23 17:22 MPV 11.2 fL (9.4-12.4) 02/14/23 17:22 Immature Gran % (Auto) 0.9 % 02/14/23 17:22 Neut % (Auto) 76.0 % 02/14/23 17:22 Lymph % (Auto) 17.5 % 02/14/23 17:22 Kaufman % (Auto) 5.3 % 02/14/23 17:22 Eos % (Auto) 0.0 % 02/14/23 17: Baso % (Auto) 0.3 % 02/14/23 17:22 Neut # (Auto) 17.03 K/uL (1.40-6.50) H 02/14/23 17:22 Lymph # (Auto) 3.92 K/uL (1.20-3.40) H 02/14/23 17:22 Kaufman # (Auto) 1.18 K/uL (0.11-0.59) H 02/14/23 17:22 Eos # (Auto) 0.00 K/uL (0.00-0.50) 02/14/23 17:22 Baso # (Auto) 0.06 K/uL (0.00-0.20) 02/14/23 17:22 Immature Gran # (Auto) 0.21 K/uL (0.01-0.20) H 02/14/23 17:22 Sodium 135 mmol/L (136-145) L 02/14/23 17:22 Potassium 3.5 mmol/L (3.5-5.1) 02/14/23 17:22 Chloride 101 mmol/L (98-107) 02/14/23 17:22 Carbon Dioxide 23 mmol/L (21-32) 02/14/23 17:22 Anion Gap 11 (3-11) 02/14/23 17:22 BUN 12 mg/dl (6-23) 02/14/23 17:22 Creatinine 0.72 mg/dl (0.6-1.2) 02/14/23 17:22 Est Cr Clr Drug Dosing Not Reportable 02/14/23 17:22 Est GFR ( Amer) 94.3 ml/min 02/14/23 17:22 Est GFR (Non-Af Amer) 81.3 ml/min 02/14/23 17:22 BUN/Creatinine Ratio 16.7 (10-20) 02/14/23 17:22 Glucose 148 mg/dl (70-99(Fasting)) H 02/14/23 17:22 Lactate 2.2 mmol/L (0.4-2.0) H* 02/14/23 21:35 Calcium 9.2 mg/dl (8.6-10.3) 02/14/23 17:22 Total Bilirubin 1.9 mg/dl (0.2-1.0) H 02/14/23 17:22 AST 35 U/L (13-39) 02/14/23 17:22 ALT 29 U/L (7-52) 02/14/23 17:22 Alkaline Phosphatase 159 U/L (34-104) H 02/14/23 17:22 Total Protein 7.6 gm/dl (6.0-8.3) 02/14/23 17:22 Albumin 3.8 gm/dl (3.4-5.0) 02/14/23 17:22 Globulin 3.8 gm/dl (2.5-4.0) 02/14/23 17:22 Albumin/Globulin Ratio 1.0 (0.9-2) 02/14/23 17:22 Urine Color Yellow 02/14/23 17:38 Urine Appearance Clear (Clear) 02/14/23 17:38 Urine pH 5.0 (4.5-7.5) 02/14/23 17:38 Ur Specific [place] 1.014 (1.000-1.030) 02/14/23 17:38 Urine Protein Negative (Negative) 02/14/23 17:38 Urine Glucose (UA) Negative (Negative) 02/14/23 17:38 Urine Ketones Negative (Negative) 02/14/23 17:38 Urine Blood Negative (Negative) 02/14/23 17:38 Urine Nitrite Negative (Negative) 02/14/23 17:38 Urine Bilirubin Negative (Negative) 02/14/23 17:38 Urine Urobilinogen Negative (Negative) 02/14/23 17:38 Ur Leukocyte Esterase Negative (Negative) 02/14/23 17:38 SARS-CoV-2 (PCR) NEGATIVE (Negative) 02/14/23 16:54 Influenza Type A (PCR) Negative (Neg) 02/14/23 16:54 Influenza Type B (PCR) Negative (Neg) 02/14/23 16:54 RSV (RT-PCR) Negative (Neg) 02/14/23 16:54 Impressions Venous Doppler Study 02/14/23 16:53 RIGHT LOWER EXTREMITY VENOUS DOPPLER CLINICAL HISTORY: Right leg swelling. COMPARISON STUDY: Bilateral lower extremity venous Doppler ultrasound September 11, 2022. TECHNIQUE: Sonography of the deep venous system of the right lower extremity was performed. Compression and augmentation were evaluated. FINDINGS: The right common femoral, superficial femoral and popliteal veins were compressible. Augmentation was normal. Flow was shown within the deep calf vessels although calf vessels were suboptimally assessed due to lower extremity edema. IMPRESSION: No evidence of deep venous thrombus within the right lower extremity. Calf vessels suboptimally assessed due to lower extremity edema. ACT 112: Negative or not required by law. Electronically signed by: Wilber Spaulding M.D. 02/14/2023 6:51 PM Chest X-Ray 02/14/23 16:55 SINGLE VIEW CHEST CLINICAL HISTORY: Fever FINDINGS: A PA chest radiograph is compared to study dated 03/28/2021 and correlated with chest CT dated 11/11/2022. The heart is enlarged. The pulmonary vasculature is noncongested. There is mild bibasilar atelectasis. The lungs and pleural spaces are otherwise clear. No pneumothorax is seen. The skeletal structures are osteopenic. The bony thorax is grossly intact. IMPRESSION: No active disease in the chest. ACT 112: Negative or not required by law. Electronically signed by: Juancarlos Ellsworth M.D. 02/14/2023 5:50 PM Code Status & VTE Plan VTE Prophylaxis Plan VTE Prophylaxis will be ordered: Yes (1) Lower extremity cellulitis Laterality: unspecified laterality Qualified Code(s): L03.119 - Cellulitis of unspecified part of limb
[2023-02-15] MEDS ORDERED: NITROGLYCERIN SL 0.4 MG/TAB TAB SL PRN (01:36)
[2023-02-15] MEDS ORDERED: GLUCOSE 40% GEL 15 GM TUBE PO PRN (01:36)
[2023-02-15] MEDS ORDERED: DEXTROSE 50% 50 ML SYRINGE IV PRN (01:36)
[2023-02-15] MEDS ORDERED: POLYETHYLENE (MIRALAX) 17 GM PACK PO PRN (01:36)
[2023-02-15] MEDS ORDERED: CARBOHYDRATES FOR HYPOGLYCEMIA PO PRN (01:36)
[2023-02-15] MEDS ORDERED: GLUCOSE 10 TAB/TUBE PO PRN (01:36)
[2023-02-15] MEDS ORDERED: GLUCAGON FOR INJ 1 MG VIAL SQ PRN (01:36)
[2023-02-15] MEDS: SODIUM CHLORIDE 0.9% 1,000 ML IV SCH ×2 (01:56→11:53)
[2023-02-15] MEDS: ACETAMINOPHEN 325 MG TAB PO PRN (04:23)
[2023-02-15] MEDS: CEFEPIME 2,000 MG in SYRINGE 0 ML IV SCH ×3 (04:24→19:46)
[2023-02-15] MEDS ORDERED: KETOROLAC TROMETHAMINE 15 MG/ML VIAL IV ONE (05:22)
[2023-02-15] MEDS ORDERED: SODIUM CHLORIDE 0.9% 500 ML IV SCH (05:30)
[2023-02-15 05:33] LABS: Basophils # (auto) 0.06 K/uL (0.00-0.20); Basophils % (auto) 0.3 %; Eosinophils # (auto) 0.05 K/uL (0.00-0.50); Eosinophils % (auto) 0.2 %; Hematocrit (blood only) 40.9 % (37.0-47.0); Hemoglobin 13.5 g/dl (12.0-16.0); Immature Granulocytes # (auto) 0.29 K/uL (0.01-0.20); Immature Granulocytes % (auto) 1.3 %; Lymphocytes # (auto) 4.96 K/uL (1.20-3.40); Lymphocytes % (auto) 21.5 %; Mean Corpuscular Hemoglobin 28.6 pg (25.0-34.0); Mean Corpuscular Volume 86.7 fL (80.0-100.0); Mean Platelet Volume 11.9 fL (9.4-12.4); Monocytes # (auto) 1.38 K/uL (0.11-0.59); Neutrophils # (auto) 16.38 K/uL (1.40-6.50); Neutrophils % (auto) 70.7 %; Platelet Count 156 K/uL (130-400); RDW Coefficient of Variation 13.6 % (11.5-14.5); Red Blood Count 4.72 M/uL (4.20-5.40); White Blood Count 23.12 K/ul (4.8-10.8)
[2023-02-15 05:40] LABS: BUN Creatinine Ratio 17.1 (10-20); Calcium 8.6 mg/dl (8.6-10.3); Creatinine Clr Calc Pharmacy 138.5 ml/min; Est GFR (African American) 97.5 ml/min; Est GFR (Non-African American) 84.2 ml/min; Magnesium 1.6 mg/dl (1.7-2.4); Potassium 3.4 mmol/L (3.5-5.1)
[2023-02-15] MEDS: DAPTOmycin 450 MG in SYRINGE 0 ML IV SCH (06:29)
[2023-02-15 07:29] LABS: Estimated Average Glucose 140 mg/dl; Hemoglobin A1C 6.5 % (4.5-5.6)
[2023-02-15] MEDS: ENOXAPARIN INJ 40 MG/0.4 ML SYR SQ SCH (08:01)
[2023-02-15] MEDS: INSULIN ASPART PER UNIT CHARGE SC SCH ×4 (08:34→21:08)
[2023-02-15] MEDS: CHOLECALCIFEROL 1,000 UNITS 25 MCG TAB PO SCH (09:28)
[2023-02-15] MEDS ORDERED: POTASSIUM CHLORIDE CRTAB 20 MEQ TABCR PO STA (09:51)
[2023-02-15] MEDS ORDERED: FUROSEMIDE INJ 20 MG/2 ML VIAL IV ONE (12:13)
--- NOTE | 2023-02-15 14:47 | Hospitalist Progress Note ---
Date of Service February 15, 2023 Assessment & Plan (1) Lower extremity cellulitis: Plan: 77-year-old female with past med history significant for diabetes, hypothyroidism, hypertension situational, morbid obesity, irritable bowel syndrome, fibromyalgia comes because of flulike symptoms and right lower extremity cellulitis. Patient says last few days she is having nausea, vomiting and fevers not feeling well and also noticed right ankle is painful and erythematous. She has some runny nose since last Sunday. Appetite is down since last Sunday COIL TESTER. No headache. No cough. No sore throat. No chest pain or shortness of breath. No abdominal pain. No diarrhea. Normal bladder movements. She is being managed for the following: Right lower extremity cellulitis Severe sepsis POA: Secondary to above. WBC/respiratory rate/lactate elevated at presentation. Lactate normalized after IV fluids. Doppler is negative for DVT. Patient was started on IV cefepime and Daptomycin 02/15 Patient reports improving erythema and tenderness, swelling about the same. Will DC IV fluid as lactic acid normalized and concern for volume overload. Continue to monitor response, consult ID. Other chronic medical conditions: Continue with/resume home meds as and when able Diabetes mellitushold metformin, sliding scale insulin while in hospital Hypothyroidism, on Synthyroid, continue Lower extremity edema: On Lasix, will resume. DVT prophylaxis: Lovenox Disposition: Med telemetry. Admission and Anticipated Discharge Date Admission Date: February 14, 2023 Subjective Patient was seen and examined at bedside. Patient was lying in bed, on 2 L oxygen via nasal cannula, resting comfortably, not in any acute distress. Patient reports improving redness and pain in her RLE. Patient reports feeling better. Patient reports feeling feverish and somewhat difficulty breathing overnight which has gotten better by bedside exam. Patient denies chest pain or cough, reports feeling better, reports eating okay and moving bowels okay. Physical Exam Physical Exam: GENERAL: Alert and oriented x3. NAD, on 2L O2 via NC. HEENT: No pallor, no icterus. Pupils equal, round and reactive to light. Oral mucosa moist. NECK: No JVD, no neck masses. HEART: S1 and S2 heard. Regular rate and rhythm. No murmur, no gallop. RESPIRATORY SYSTEM: Normal AP diameter. No accessory muscle use. No wheezing, no crackles. ABDOMEN: Soft, bowel sounds present, nontender, no distention. CENTRAL NERVOUS SYSTEM: No facial droop. Speech is clear. Obeys simple commands. Moves extremities. EXTREMITIES: BLE chr skin changes w/ non pitting (lymphedema) w/ 1 + pitting edema noted. RLE erythema, swelling and tenderness noted. Results & Data Results & Data Vital Signs (Past 12 Hours) Vital Signs Temp Pulse Pulse Resp BP Pulse Ox O2 Del Method 02/15/23 07:07 94 H 02/15/23 05:58 37.5 C 02/15/23 05:03 37.9 C H 94 Nasal Cannula 02/15/23 05:02 102 H 89 L Room Air 02/15/23 04:04 37.6 C H 75 20 143/68 H 93 Room Air 02/15/23 02:52 101 H 24 143/68 H 93 Room Air O2 Flow Rate 02/15/23 07:07 02/15/23 05:58 02/15/23 05:03 2 02/15/23 05:02 2 02/15/23 04:04 02/15/23 02:52 (1) Lower extremity cellulitis Laterality: unspecified laterality Qualified Code(s): L03.119 - Cellulitis of unspecified part of limb
[2023-02-15] MEDS ORDERED: FAMOTIDINE 20MG/5ML IV PUSH IV ONE (16:29)
[2023-02-15] MEDS ORDERED: FAMOTIDINE 20 MG in SYRINGE 3 ML IV ONE (16:30)
[2023-02-15] MEDS: KETOROLAC TROMETHAMINE 15 MG/ML VIAL IV PRN (19:41)
[2023-02-15] MEDS: AMITRIPTYLINE HCL 10 MG TAB PO SCH (20:52)
[2023-02-15] MEDS: LEVOTHYROXINE SODIUM 125 MCG TABLET PO SCH (20:52)
[2023-02-15] MEDS: FAMOTIDINE 20 MG in SYRINGE 3 ML IV SCH (20:55)
[2023-02-16] MEDS: ACETAMINOPHEN 325 MG TAB PO PRN ×2 (02:42→07:26)
[2023-02-16] MEDS: KETOROLAC TROMETHAMINE 15 MG/ML VIAL IV PRN ×3 (02:43→21:47)
[2023-02-16] MEDS: CEFEPIME 2,000 MG in SYRINGE 0 ML IV SCH ×2 (03:10→12:23)
[2023-02-16] MEDS: ENOXAPARIN INJ 40 MG/0.4 ML SYR SQ SCH (05:28)
[2023-02-16] MEDS: DAPTOmycin 450 MG in SYRINGE 0 ML IV SCH (05:29)
[2023-02-16 05:32] LABS: Calcium 8.2 mg/dl (8.6-10.3); Creatinine Clr Calc Pharmacy 82.9 ml/min; Est GFR (African American) 98.5 ml/min; Potassium 3.4 mmol/L (3.5-5.1)
[2023-02-16 05:38] LABS: Hematocrit (blood only) 40.4 % (37.0-47.0); Hemoglobin 12.9 g/dl (12.0-16.0); Mean Corpuscular Hemoglobin 28.2 pg (25.0-34.0); Mean Corpuscular Hgb Conc 31.9 g/dL (32.0-36.0); Mean Corpuscular Volume 88.4 fL (80.0-100.0); Mean Platelet Volume 11.5 fL (9.4-12.4); Platelet Count 155 K/uL (130-400); RDW Coefficient of Variation 14.2 % (11.5-14.5); RDW Standard Deviation 45.9 fL (36.4-46.3); Red Blood Count 4.57 M/uL (4.20-5.40); White Blood Count 15.95 K/ul (4.8-10.8)
[2023-02-16] MEDS: FAMOTIDINE 20 MG in SYRINGE 3 ML IV SCH ×2 (09:00→22:22)
[2023-02-16] MEDS: CHOLECALCIFEROL 1,000 UNITS 25 MCG TAB PO SCH (09:12)
[2023-02-16] MEDS: FUROSEMIDE 40 MG TAB PO SCH (09:13)
[2023-02-16] MEDS ORDERED: POTASSIUM CHLORIDE CRTAB 20 MEQ TABCR PO STA (09:20)
[2023-02-16] MEDS: INSULIN ASPART PER UNIT CHARGE SC SCH ×4 (10:22→21:42)
--- NOTE | 2023-02-16 10:55 | Infectious Disease Consult ---
Date of Service February 16, 2023 Telehealth Information I performed this visit using a real-time telehealth connection between my location and the patients location ([facility]). After connecting through interactive tele-video, patient was identified by name and date of and/or wristband check.Patient (or authorized healthcare career services representative) was informed that this was a telemedicine visit and it was being conducted confidentially over secure lines. My office door was closed and no one else was present in the room with me.Patient (or authorized healthcare career services representative) provided consent to proceed with the visit, expressed an understanding of privacy and security of the telemedicine visit, and gave permission to have a hospital career services representative in the room in order to assist with the visit and to conduct portions of the visit, as needed. I informed the patient (or authorized healthcare career services representative) that I reviewed their record and presented the opportunity for them to ask any questions regarding the visit today. The patient agreed to participate. Assessment & Plan (1) Cellulitis of right lower extremity: (2) Lymphedema: Plan Recommend discontinuing cefepime and continuing daptomycin until there is significant clinical improvement .Recommend obtaining a MRSA PCR and if negative would recommend when she is stable for discharge to switch to cefalexin 500 mg PO QID for a total of 14 days .Consider a latex free compression stockings and elevating her legs whenever possible .I also recommend she follow up with the lymphedema clinic .Thank you for allowing us to participate in the care of this patient ID will sign off History of Present Illness History of Present Illness 77 y/o F PMHx diabetes, hypothyroidism, hypertension situational, morbid obesity, irritable bowel syndrome, fibromyalgia comes because of flulike symptoms and RLE cellulitis. Patient reports that the last few days she has been experiencing nausea, vomiting and fevers and generally not feeling well.She also noticed her right ankle was painful and erythematous. Her Doppler was negative for DVT and she was started on IV cefepime and Daptomycin 02/15.Her blood cultures have been negative so far Allergies Allergy/AdvReac Type Severity Reaction Status Date / Time oxycodone Allergy Mild itching Verified 02/14/23 20:21 benzalkonium chloride Allergy Unknown CONTACT Verified 02/14/23 20:21 SWELLING/PAIN codeine Allergy Unknown GALLBLADDER Verified 02/14/23 20:21 ATTACK LIKE SYMPTOMS dextromethorphan Allergy Unknown ITCHY Verified 02/14/23 20:21 latex Allergy Unknown CONTACT Verified 02/14/23 20:21 DERMATITIS/WELTS nickel Allergy Unknown BOILS Verified 02/14/23 20:21 Progestins Allergy Unknown per PCP Verified 02/14/23 20:21 note Sulfa (Sulfonamide Allergy Unknown BLISTERS? Verified 02/14/23 20:21 Antibiotics) tetanus toxoid, adsorbed Allergy Unknown UNCONSCIOUS Verified 02/14/23 20:21 NESS thimerosal Allergy Unknown EYE Verified 02/14/23 20:21 SWELLING/PAIN morphine AdvReac Intermediate PAIN/PROJECTILE Verified 02/14/23 20:21 VOMITTING Influenza Virus Vaccines AdvReac Unknown Avoids Verified 02/14/23 20:21 secondary to thimerosal allergy promethazine AdvReac Unknown CONFUSION/D Verified 02/14/23 20:21 ISORIENTED silver sulfadiazine AdvReac Unknown BOILS Verified 02/14/23 20:21 magnesium AdvReac pain Verified 02/14/23 20:21 stomach Home Medications Medication Instructions Recorded Confirmed Type cinnamon bark 500 mg capsule 500 mg PO QAM 03/18/18 02/14/23 History (Cinnamon) levothyroxine 125 mcg tablet 125 mcg PO QPM 03/18/18 02/14/23 History Turmeric Curcumin W/ Bioperine 1,950 mg PO DAILY 03/26/21 02/14/23 History alendronate 70 mg tablet 70 mg PO WK 03/26/21 02/14/23 History bilberry fruit 1,000 mg capsule 1 g PO DAILY 03/26/21 02/14/23 History furosemide 20 mg tablet 40 mg PO DAILY 03/26/21 02/14/23 History metformin 500 mg tablet,extended 500 mg PO QPM 03/26/21 11/11/22 History release 24 hr amitriptyline 10 mg tablet 10 mg PO HS 03/28/21 02/14/23 History cholecalciferol (vitamin D3) 25 25 mcg PO DAILY 03/28/21 02/14/23 History mcg (1,000 unit) tablet (Vitamin D3) Visi Free Cap 1 tab PO BID 09/11/22 02/14/23 History Life Extension Eye Pressure Support 1 cap PO DAILY 11/11/22 02/14/23 History Patient History Medical History (Updated 02/14/23 @ 23:56 by Corie Morley MD) History of hepatitis as a child Hypothyroidism Glaucoma bilt Migraine Hypothyroidism PE (pulmonary embolism) (04/28/13) Fibromyalgia Surgical History History of dilatation and curettage x2 History of total abdominal hysterectomy and bilateral salpingo-oophorectomy History of open reduction and internal fixation (ORIF) procedure left ankle---screws, jim, plate in place S/P foot surgery, right History of wisdom tooth extraction History of tonsillectomy History of surgical procedure on eye proper using laser bilt eyes H/O tubal ligation History of cholecystectomy Family History Sister Family history of diabetes mellitus Other No family history of adverse response to anesthesia Social History Smoking Status: Never smoker Second Hand Exposure: Yes (parents smoked); Do You Dip or Chew Tobacco: No; Hx Alcohol Use: No Hx Substance Use: No Preferred Language: Namibian Communication Ability: Effective Dive Superintendent Required: No Beliefs That Will Affect Care: None marital status: Current Living Situation: Spouse Other Information That Helps Us Care for You: No Feels Safe at Home: Yes Safety Concerns: Feels Safe At This Time Assistive Devices: Walker Review of Systems Patient afebrile with erythematous swelling to both lower extremities R>L Physical Exam Patient awake alert oriented in no respiratory distress .B/L erythematous swelling R>L Results & Data Vital Signs (Past 12 Hours) Vital Signs Temp Pulse Pulse Resp BP Pulse Ox Pulse Ox 02/16/23 07:45 36.7 C 62 24 127/67 94 02/16/23 07:45 94 02/16/23 07:04 64 02/16/23 06:00 71 24 118/62 94 02/16/23 04:00 58 L 24 120/64 96 02/16/23 02:00 65 24 144/71 H 97 02/16/23 00:40 65 02/16/23 00:34 65 23 134/69 96 O2 Del Method O2 Del Method O2 Flow Rate 02/16/23 07:45 Room Air 02/16/23 07:45 Room Air 02/16/23 07:04 02/16/23 06:00 Room Air 02/16/23 04:00 Nasal Cannula 2 02/16/23 02:00 Nasal Cannula 2 02/16/23 00:40 02/16/23 00:34 Nasal Cannula 2 Laboratory Results Blood Culture Aerobic Preliminary 02/15/23-2199 No growth in Aerobic bottle after 24 hours. Blood Culture Anaerobic Preliminary 02/15/23-2199 No growth in Anaerobic bottle after 24 hours. Diagnostic Findings FINDINGS: The right common femoral, superficial femoral and popliteal veins were compressible. Augmentation was normal. Flow was shown within the deep calf vessels although calf vessels were suboptimally assessed due to lower extremity edema. IMPRESSION: No evidence of deep venous thrombus within the right lower extremity. Calf vessels suboptimally assessed due to lower extremity edema.
[2023-02-16] MEDS: POT PHOSPHATE MONOBASIC W/ SOD TAB PO SCH ×3 (12:24→21:50)
--- NOTE | 2023-02-16 15:37 | Hospitalist Progress Note ---
Date of Service February 16, 2023 Assessment & Plan (1) Lower extremity cellulitis: Plan: 77-year-old female with past med history significant for diabetes, hypothyroidism, hypertension situational, morbid obesity, irritable bowel syndrome, fibromyalgia comes because of flulike symptoms and right lower extremity cellulitis. Patient says last few days she is having nausea, vomiting and fevers not feeling well and also noticed right ankle is painful and erythematous. She has some runny nose since last Sunday. 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 No cough. No sore throat. No chest pain or shortness of breath. No abdominal pain. No diarrhea. Normal bladder movements. She is being managed for the following: Right lower extremity cellulitis Severe sepsis POA: Secondary to above. WBC/respiratory rate/lactate elevated at presentation. Lactate normalized after IV fluids. Doppler is negative for DVT. Patient was started on IV cefepime and Daptomycin 02/15 -- ID evaled, dc'd cefepime 02/16, c/w dapto MRSA screen sent Patient reports improving erythema and tenderness, swelling about the same. Continue to monitor response to iv atb. Elevated RLE. Other chronic medical conditions: Continue with/resume home meds as and when able Diabetes mellitushold metformin, sliding scale insulin while in hospital Hypothyroidism, on Synthyroid, continue Lower extremity edema: On Lasix, will resume. DVT prophylaxis: Lovenox Disposition: Med telemetry. PT/ot, cm to assist w/ dc plan. Admission and Anticipated Discharge Date Admission Date: February 14, 2023 Subjective Patient was seen and examined at bedside. Patient was lying in bed, on RA, resting comfortably, not in any acute distress. Patient reports improving redness and pain in her RLE. Patient reports feeling better. Patient reports not able to sleep over night, will use melatonin. Patient denies chest pain or cough, reports feeling better, reports eating okay and moving bowels okay. Physical Exam Physical Exam: GENERAL: Alert and oriented x3. NAD, on RA HEENT: No pallor, no icterus. Pupils equal, round and reactive to light. Oral mucosa moist. NECK: No JVD, no neck masses. HEART: S1 and S2 heard. Regular rate and rhythm. No murmur, no gallop. RESPIRATORY SYSTEM: Normal AP diameter. No accessory muscle use. No wheezing, no crackles. ABDOMEN: Soft, bowel sounds present, nontender, no distention. CENTRAL NERVOUS SYSTEM: No facial droop. Speech is clear. Obeys simple commands. Moves extremities. EXTREMITIES: BLE chr skin changes w/ non pitting (lymphedema) w/ 1 + pitting edema noted. RLE erythema, swelling and tenderness noted. Results & Data Results & Data Vital Signs (Past 12 Hours) Vital Signs Temp Pulse Pulse Resp BP Pulse Ox Pulse Ox 02/16/23 12:15 36.8 C 72 18 142/64 H 95 02/16/23 07:45 36.7 C 62 24 127/67 94 02/16/23 07:45 94 02/16/23 07:04 64 02/16/23 06:00 71 24 118/62 94 02/16/23 04:00 58 L 24 120/64 96 O2 Del Method O2 Del Method O2 Flow Rate 02/16/23 12:15 Room Air 02/16/23 07:45 Room Air 02/16/23 07:45 Room Air 02/16/23 07:04 02/16/23 06:00 Room Air 02/16/23 04:00 Nasal Cannula 2 (1) Lower extremity cellulitis Laterality: unspecified laterality Qualified Code(s): L03.119 - Cellulitis of unspecified part of limb
[2023-02-16] MEDS: MELATONIN 3 MG TAB PO SCH (21:50)
[2023-02-16] MEDS: LEVOTHYROXINE SODIUM 125 MCG TABLET PO SCH (21:50)
[2023-02-16] MEDS: AMITRIPTYLINE HCL 10 MG TAB PO SCH (21:50)
[2023-02-17] MEDS: HYDROmorphone INJ 0.5 MG/0.5 ML SYR IV PRN ×4 (01:48→23:01)
[2023-02-17] MEDS: DAPTOmycin 450 MG in SYRINGE 0 ML IV SCH (05:02)
[2023-02-17] MEDS: ENOXAPARIN INJ 40 MG/0.4 ML SYR SQ SCH (05:02)
[2023-02-17] MEDS: KETOROLAC TROMETHAMINE 15 MG/ML VIAL IV PRN ×3 (05:05→21:59)
[2023-02-17 05:39] LABS: BUN Creatinine Ratio 21.3 (10-20); Calcium 8.7 mg/dl (8.6-10.3); Creatinine Clr Calc Pharmacy 92.4 ml/min; Est GFR (African American) 102.1 ml/min; Est GFR (Non-African American) 88.1 ml/min; Phosphorus 3.8 mg/dl (2.5-4.9); Potassium 3.8 mmol/L (3.5-5.1)
[2023-02-17 05:50] LABS: Hemoglobin 13.2 g/dl (12.0-16.0); Mean Corpuscular Hemoglobin 28.8 pg (25.0-34.0); Mean Corpuscular Volume 87.3 fL (80.0-100.0); Mean Platelet Volume 11.8 fL (9.4-12.4); Platelet Count 180 K/uL (130-400); RDW Coefficient of Variation 13.7 % (11.5-14.5); RDW Standard Deviation 43.9 fL (36.4-46.3); Red Blood Count 4.58 M/uL (4.20-5.40); White Blood Count 14.86 K/ul (4.8-10.8)
[2023-02-17] MEDS: INSULIN ASPART PER UNIT CHARGE SC SCH ×4 (08:00→21:32)
[2023-02-17] MEDS: POT PHOSPHATE MONOBASIC W/ SOD TAB PO SCH (10:31)
[2023-02-17] MEDS: FUROSEMIDE 40 MG TAB PO SCH (10:31)
[2023-02-17] MEDS: FAMOTIDINE 20 MG in SYRINGE 3 ML IV SCH ×2 (10:31→20:26)
[2023-02-17] MEDS: CHOLECALCIFEROL 1,000 UNITS 25 MCG TAB PO SCH (10:36)
--- NOTE | 2023-02-17 16:44 | Hospitalist Progress Note ---
Date of Service February 17, 2023 Assessment & Plan (1) Lower extremity cellulitis: Plan: 77-year-old female with past med history significant for diabetes, hypothyroidism, hypertension situational, morbid obesity, irritable bowel syndrome, fibromyalgia comes because of flulike symptoms and right lower extremity cellulitis. Patient says last few days she is having nausea, vomiting and fevers not feeling well and also noticed right ankle is painful and erythematous. She has some runny nose since last Sunday. 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 No cough. No sore throat. No chest pain or shortness of breath. No abdominal pain. No diarrhea. Normal bladder movements. She is being managed for the following: Right lower extremity cellulitis Severe sepsis POA: Secondary to above. WBC/respiratory rate/lactate elevated at presentation. Lactate normalized after IV fluids. Doppler is negative for DVT. Patient was started on IV cefepime and Daptomycin 02/15 -- ID evaled, dc'd cefepime 02/16, c/w dapto MRSA screen neg Improving erythema and tenderness, swelling about the same. Continue to monitor response to iv atb. Plan to switch to po per id recs. Elevated RLE. Other chronic medical conditions: Continue with/resume home meds as and when able Diabetes mellitushold metformin, sliding scale insulin while in hospital Hypothyroidism, on Synthyroid, continue Lower extremity edema: On Lasix, will resume. DVT prophylaxis: Lovenox Disposition: Med telemetry. PT/ot, cm to assist w/ dc plan. Admission and Anticipated Discharge Date Admission Date: February 14, 2023 Subjective Patient was seen and examined at bedside. Patient was lying in bed, on RA, resting comfortably, not in any acute distress. Patient reports improving redness. Pt reports rle pain and is waiting for pain med. Patient denies chest pain or cough, reports feeling better, reports eating okay and moving bowels okay. Physical Exam Physical Exam: GENERAL: Alert and oriented x3. NAD, on RA HEENT: No pallor, no icterus. Pupils equal, round and reactive to light. Oral mucosa moist. NECK: No JVD, no neck masses. HEART: S1 and S2 heard. Regular rate and rhythm. No murmur, no gallop. RESPIRATORY SYSTEM: Normal AP diameter. No accessory muscle use. No wheezing, no crackles. ABDOMEN: Soft, bowel sounds present, nontender, no distention. CENTRAL NERVOUS SYSTEM: No facial droop. Speech is clear. Obeys simple commands. Moves extremities. EXTREMITIES: BLE chr skin changes w/ non pitting (lymphedema) w/ 1 + pitting edema noted. RLE erythema, swelling and tenderness noted. RLE erythema improving. Results & Data Results & Data Vital Signs (Past 12 Hours) Vital Signs Temp Pulse Pulse Resp BP Pulse Ox O2 Del Method 02/17/23 12:05 78 23 116/58 L 94 Nasal Cannula 02/17/23 08:51 67 02/17/23 08:22 37.1 C 69 22 116/66 95 Nasal Cannula 02/17/23 05:00 74 22 148/64 H 96 Nasal Cannula O2 Flow Rate 02/17/23 12:05 2 02/17/23 08:51 02/17/23 08:22 2 02/17/23 05:00 2 (1) Lower extremity cellulitis Laterality: unspecified laterality Qualified Code(s): L03.119 - Cellulitis of unspecified part of limb
[2023-02-17] MEDS: AMITRIPTYLINE HCL 10 MG TAB PO SCH (20:26)
[2023-02-17] MEDS: LEVOTHYROXINE SODIUM 125 MCG TABLET PO SCH (20:27)
[2023-02-17] MEDS: MELATONIN 3 MG TAB PO SCH (20:27)
[2023-02-18] MEDS: KETOROLAC TROMETHAMINE 15 MG/ML VIAL IV PRN ×3 (04:27→23:00)
[2023-02-18] MEDS: DAPTOmycin 450 MG in SYRINGE 0 ML IV SCH (05:00)
[2023-02-18] MEDS: HYDROmorphone INJ 0.5 MG/0.5 ML SYR IV PRN ×3 (05:00→18:25)
[2023-02-18] MEDS: ENOXAPARIN INJ 40 MG/0.4 ML SYR SQ SCH (05:00)
[2023-02-18 07:34] LABS: Creatinine Clr Calc Pharmacy 95.5 ml/min; Est GFR (African American) 103.8 ml/min; Est GFR (Non-African American) 89.5 ml/min
[2023-02-18] MEDS: FAMOTIDINE 20 MG in SYRINGE 3 ML IV SCH ×2 (08:18→20:44)
[2023-02-18] MEDS: ACETAMINOPHEN 325 MG TAB PO PRN (08:18)
[2023-02-18] MEDS: FUROSEMIDE 40 MG TAB PO SCH (08:19)
[2023-02-18] MEDS: CHOLECALCIFEROL 1,000 UNITS 25 MCG TAB PO SCH (08:19)
[2023-02-18] MEDS: INSULIN ASPART PER UNIT CHARGE SC SCH ×4 (09:23→20:34)
--- NOTE | 2023-02-18 15:26 | Hospitalist Progress Note ---
Date of Service February 18, 2023 Assessment & Plan (1) Lower extremity cellulitis: Plan: 77-year-old female with past med history significant for diabetes, hypothyroidism, hypertension situational, morbid obesity, irritable bowel syndrome, fibromyalgia comes because of flulike symptoms and right lower extremity cellulitis. Patient says last few days she is having nausea, vomiting and fevers not feeling well and also noticed right ankle is painful and erythematous. She has some runny nose since last Sunday. 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 No cough. No sore throat. No chest pain or shortness of breath. No abdominal pain. No diarrhea. Normal bladder movements. She is being managed for the following: Right lower extremity cellulitis Severe sepsis POA: Secondary to above. WBC/respiratory rate/lactate elevated at presentation. Lactate normalized after IV fluids. Doppler is negative for DVT. Patient was started on IV cefepime and Daptomycin 02/15 -- ID evaled, dc'd cefepime 02/16, c/w dapto MRSA screen neg Improving erythema and tenderness, swelling about the same. Continue to monitor response to iv atb. Plan to switch to po per id recs on dc. Elevated RLE. Pt declined compression stocking to rle. Other chronic medical conditions: Continue with/resume home meds as and when able Diabetes mellitushold metformin, sliding scale insulin while in hospital Hypothyroidism, on Synthyroid, continue Lower extremity edema: On Lasix, will resume. DVT prophylaxis: Lovenox Disposition: Med surg. PT/ot, cm to assist w/ dc plan. Admission and Anticipated Discharge Date Admission Date: February 14, 2023 Subjective Patient was seen and examined at bedside. Patient was lying in bed, on RA, resting comfortably, not in any acute distress. Patient reports improving redness. Pt reports improving rle pain. Patient denies chest pain or cough, reports feeling better, reports eating okay and moving bowels okay. discussed about her magnesium allergy. remembers taking Mg and Iron tab during and had stomach upset and since then she hadn't tried magnesium but if needed she said she is willing to try. Physical Exam Physical Exam: GENERAL: Alert and oriented x3. NAD, on RA HEENT: No pallor, no icterus. Pupils equal, round and reactive to light. Oral mucosa moist. NECK: No JVD, no neck masses. HEART: S1 and S2 heard. Regular rate and rhythm. No murmur, no gallop. RESPIRATORY SYSTEM: Normal AP diameter. No accessory muscle use. No wheezing, no crackles. ABDOMEN: Soft, bowel sounds present, nontender, no distention. CENTRAL NERVOUS SYSTEM: No facial droop. Speech is clear. Obeys simple commands. Moves extremities. EXTREMITIES: BLE chr skin changes w/ non pitting (lymphedema) w/ 1 + pitting edema noted. RLE erythema, swelling and tenderness noted. RLE erythema improving. Results & Data Results & Data Vital Signs (Past 12 Hours) Vital Signs Temp Pulse Pulse Resp BP Pulse Ox O2 Del Method 02/18/23 14:58 36.7 C 71 16 134/64 98 Nasal Cannula 02/18/23 11:25 36.7 C 71 16 145/74 H 95 Nasal Cannula 02/18/23 08:26 Room Air 02/18/23 07:45 36.7 C 77 16 122/64 97 Room Air 02/18/23 07:20 80 O2 Flow Rate 02/18/23 14:58 2 02/18/23 11:25 2 02/18/23 08:26 02/18/23 07:45 02/18/23 07:20 (1) Lower extremity cellulitis Laterality: unspecified laterality Qualified Code(s): L03.119 - Cellulitis of unspecified part of limb
[2023-02-18] MEDS: LEVOTHYROXINE SODIUM 125 MCG TABLET PO SCH (20:44)
[2023-02-18] MEDS: AMITRIPTYLINE HCL 10 MG TAB PO SCH (20:44)
[2023-02-18] MEDS: MELATONIN 3 MG TAB PO SCH (20:44)
[2023-02-19] MEDS: HYDROmorphone INJ 0.5 MG/0.5 ML SYR IV PRN ×4 (01:38→19:43)
[2023-02-19] MEDS: DAPTOmycin 450 MG in SYRINGE 0 ML IV SCH (05:24)
[2023-02-19] MEDS: ENOXAPARIN INJ 40 MG/0.4 ML SYR SQ SCH (05:24)
[2023-02-19] MEDS: KETOROLAC TROMETHAMINE 15 MG/ML VIAL IV PRN ×4 (05:24→23:57)
[2023-02-19] MEDS: INSULIN ASPART PER UNIT CHARGE SC SCH ×4 (08:37→20:41)
[2023-02-19] MEDS: FUROSEMIDE 40 MG TAB PO SCH (08:37)
[2023-02-19] MEDS: CHOLECALCIFEROL 1,000 UNITS 25 MCG TAB PO SCH (08:37)
[2023-02-19 08:45] LABS: Hemoglobin 12.6 g/dl (12.0-16.0); Mean Corpuscular Hemoglobin 28.1 pg (25.0-34.0); Mean Corpuscular Hgb Conc 31.5 g/dL (32.0-36.0); Mean Corpuscular Volume 89.3 fL (80.0-100.0); Mean Platelet Volume 11.9 fL (9.4-12.4); Platelet Count 173 K/uL (130-400); RDW Coefficient of Variation 14.2 % (11.5-14.5); Red Blood Count 4.48 M/uL (4.20-5.40); White Blood Count 13.53 K/ul (4.8-10.8)
[2023-02-19 08:54] LABS: BUN Creatinine Ratio 24.2 (10-20); Calcium 8.8 mg/dl (8.6-10.3); Creatinine Clr Calc Pharmacy 89.3 ml/min; Est GFR (African American) 101.5 ml/min; Est GFR (Non-African American) 87.6 ml/min; Magnesium 1.8 mg/dl (1.7-2.4); Potassium 3.8 mmol/L (3.5-5.1)
[2023-02-19] MEDS: FAMOTIDINE 20 MG in SYRINGE 3 ML IV SCH ×2 (09:19→20:33)
--- NOTE | 2023-02-19 12:11 | Hospitalist Progress Note ---
Date of Service February 19, 2023 Assessment & Plan (1) Lower extremity cellulitis: Plan: 77-year-old female with past med history significant for diabetes, hypothyroidism, hypertension situational, morbid obesity, irritable bowel syndrome, fibromyalgia comes because of flulike symptoms and right lower extremity cellulitis. Patient says last few days she is having nausea, vomiting and fevers not feeling well and also noticed right ankle is painful and erythematous. She has some runny nose since last Sunday. 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 No cough. No sore throat. No chest pain or shortness of breath. No abdominal pain. No diarrhea. Normal bladder movements. She is being managed for the following: Right lower extremity cellulitis Severe sepsis POA: Secondary to above. WBC/respiratory rate/lactate elevated at presentation. Lactate normalized after IV fluids. Doppler is negative for DVT. Patient was started on IV cefepime and Daptomycin 02/15 -- ID evaled, dc'd cefepime 02/16, c/w dapto MRSA screen neg Improving erythema and tenderness, swelling about the same. Continue to monitor response to iv atb. Plan to switch to po per id recs on dc. Elevated RLE. Pt declined compression stocking to rle. Patient not very much compliant with elevating RLE. Will get CT RLE. Will trial gabapentin for patient's shooting pain in her RLE if CT RLE is negative. Other chronic medical conditions: Continue with/resume home meds as and when able Diabetes mellitushold metformin, sliding scale insulin while in hospital Hypothyroidism, on Synthyroid, continue Lower extremity edema: On Lasix, will resume. DVT prophylaxis: Lovenox Disposition: Med surg. PT/ot, cm to assist w/ dc plan. Admission and Anticipated Discharge Date Admission Date: February 14, 2023 Subjective Patient was seen and examined at bedside. Patient was lying in bed, on RA, resting comfortably, not in any acute distress. Right lower extremity erythema improvement seems to have stalled. Will get CT scan of RLE to rule out collections or osteomyelitis. WBC seems to be gradually trending down. Patient continues to have sitting pain. Will trial gabapentin. Patient denies chest pain or cough, reports eating okay and moving bowels okay. 02/18/2023: Discussed about her magnesium allergy. remembers taking Mg and Iron tab during and had stomach upset and since then she hadn't tried magnesium but if needed she said she is willing to try. Physical Exam Physical Exam: GENERAL: Alert and oriented x3. NAD, on RA HEENT: No pallor, no icterus. Pupils equal, round and reactive to light. Oral mucosa moist. NECK: No JVD, no neck masses. HEART: S1 and S2 heard. Regular rate and rhythm. No murmur, no gallop. RESPIRATORY SYSTEM: Normal AP diameter. No accessory muscle use. No wheezing, no crackles. ABDOMEN: Soft, bowel sounds present, nontender, no distention. CENTRAL NERVOUS SYSTEM: No facial droop. Speech is clear. Obeys simple commands. Moves extremities. EXTREMITIES: BLE chr skin changes w/ non pitting (lymphedema) w/ 1-2 + pitting edema noted. RLE erythema, swelling and tenderness noted. RLE erythema about the same. Results & Data Results & Data Vital Signs (Past 12 Hours) Vital Signs Temp Pulse Resp BP Pulse Ox O2 Del Method 02/19/23 08:01 37.0 C 68 16 136/78 94 Room Air (1) Lower extremity cellulitis Laterality: unspecified laterality Qualified Code(s): L03.119 - Cellulitis of unspecified part of limb
--- NOTE | 2023-02-19 13:17 | CT Scan Report ---
CT tib/fib RT wo con CLINICAL HISTORY: ro OM, cellulitis not improving, ? collection COMPARISON STUDY: Right ankle radiographs August 31, 2006. Right lower extremity venous Doppler ultras ound February 14, 2023. TECHNIQUE: Axial images of the right tibia and fibula and lower leg were obtained without IV contrast . Sagittal and coronal reconstructions were viewed. Automated exposure control was utilized for the s tudy. A dose lowering technique was utilized adhering to the principles of ALARA. FINDINGS: There is no fracture within the right tibia or fibula. No bony erosions are identified with in the right tibia or fibula. There is extensive skin thickening of the right lower leg, ankle and do rsal foot. Associated subcutaneous fluid is present. No soft tissue gas. No fluid collections are pre sent. Talar dome is intact. No osseous lesions are identified. IMPRESSION: 1. No acute fracture. No evidence for osteomyelitis within the right tibia or fibula. 2. Skin thickening and extensive subcutaneous fluid of the right lower leg, ankle and visualized port ions of the right foot. This could reflect edema or cellulitis. No fluid collection to suggest absces s on unenhanced exam. No soft tissue gas. ACT 112: Negative or not required by law. Electronically signed by: Wilber Spaulding M.D. 02/19/2023 1:15 PM
[2023-02-19] MEDS ORDERED: FUROSEMIDE 40 MG/4 ML VIAL IV ONE (15:00)
[2023-02-19] MEDS: LEVOTHYROXINE SODIUM 125 MCG TABLET PO SCH (20:33)
[2023-02-19] MEDS: AMITRIPTYLINE HCL 10 MG TAB PO SCH (20:33)
[2023-02-19] MEDS: MELATONIN 3 MG TAB PO SCH (20:36)
[2023-02-20] MEDS ORDERED: Nursing to Pharmacy Communication SCH (00:30)
[2023-02-20] MEDS: HYDROmorphone INJ 0.5 MG/0.5 ML SYR IV PRN ×4 (02:31→20:52)
[2023-02-20] MEDS: KETOROLAC TROMETHAMINE 15 MG/ML VIAL IV PRN ×4 (05:55→23:57)
[2023-02-20] MEDS: DAPTOmycin 450 MG in SYRINGE 0 ML IV SCH (05:55)
[2023-02-20] MEDS: ENOXAPARIN INJ 40 MG/0.4 ML SYR SQ SCH (05:56)
[2023-02-20] MEDS: INSULIN ASPART PER UNIT CHARGE SC SCH ×4 (08:33→20:47)
[2023-02-20] MEDS: FAMOTIDINE 20 MG in SYRINGE 3 ML IV SCH ×2 (08:34→20:56)
[2023-02-20] MEDS: FUROSEMIDE 40 MG TAB PO SCH (08:34)
[2023-02-20] MEDS: CHOLECALCIFEROL 1,000 UNITS 25 MCG TAB PO SCH (08:34)
[2023-02-20 09:28] LABS: Hematocrit (blood only) 39.6 % (37.0-47.0); Hemoglobin 12.4 g/dl (12.0-16.0); Mean Corpuscular Hemoglobin 28.1 pg (25.0-34.0); Mean Corpuscular Hgb Conc 31.3 g/dL (32.0-36.0); Mean Corpuscular Volume 89.6 fL (80.0-100.0); Mean Platelet Volume 11.4 fL (9.4-12.4); Platelet Count 184 K/uL (130-400); RDW Coefficient of Variation 14.1 % (11.5-14.5); RDW Standard Deviation 46.3 fL (36.4-46.3); Red Blood Count 4.42 M/uL (4.20-5.40); White Blood Count 13.44 K/ul (4.8-10.8)
[2023-02-20 09:55] LABS: BUN Creatinine Ratio 25.9 (10-20); Calcium 8.8 mg/dl (8.6-10.3); Creatinine Clr Calc Pharmacy 102.5 ml/min; Est GFR (African American) 106.2 ml/min; Est GFR (Non-African American) 91.7 ml/min; Phosphorus 3.4 mg/dl (2.5-4.9); Potassium 3.7 mmol/L (3.5-5.1)
--- NOTE | 2023-02-20 15:06 | Hospitalist Progress Note ---
Date of Service February 20, 2023 Assessment & Plan (1) Lower extremity cellulitis: Plan: 77-year-old female with past med history significant for diabetes, hypothyroidism, hypertension situational, morbid obesity, irritable bowel syndrome, fibromyalgia comes because of flulike symptoms and right lower extremity cellulitis. Patient says last few days she is having nausea, vomiting and fevers not feeling well and also noticed right ankle is painful and erythematous. She has some runny nose since last Sunday. 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 No cough. No sore throat. No chest pain or shortness of breath. No abdominal pain. No diarrhea. Normal bladder movements. She is being managed for the following: Right lower extremity cellulitis Severe sepsis POA: Secondary to above. WBC/respiratory rate/lactate elevated at presentation. Lactate normalized after IV fluids. Doppler is negative for DVT. Patient was started on IV cefepime and Daptomycin 02/15 -- ID evaled, dc'd cefepime 02/16, c/w dapto MRSA screen neg Improving erythema and tenderness, swelling about the same. Received dose of IV lasix on 02/19 Continue to monitor response to iv atb. Plan to switch to po per id recs on dc to keflex for a total of 14 days Elevated RLE. Pt declined compression stocking to rle. Patient not very much compliant with elevating RLE. CT RLE: Skin thickening and extensive subcutaneous fluid of the right lower leg, ankle and visualized portions of the right foot. This could reflect edema or cellulitis. No fluid collection to suggest abscess on unenhanced exam. No soft tissue gas. Will trial gabapentin 100mg bid Vulvar Candidiasis will give Diflucan 150mg x 1 now and additional dose in 72hrs given duration of antibiotic Other chronic medical conditions: Continue with/resume home meds as and when able Diabetes mellitushold metformin, sliding scale insulin while in hospital, chronic and stable, a1c 6.5 on 02/15 Hypothyroidism, on Synthyroid, continue Lower extremity edema: On Lasix, will resume. DVT prophylaxis: Lovenox Disposition: Med surg. PT/ot, cm to assist w/ dc plan. Pt was seen and examined in collaboration with Dr. Morales, please see addendum CBC w diff and bmp ordered for a.m. Admission and Anticipated Discharge Date Admission Date: February 14, 2023 Supervising Physician Co-Signing Physician Notes RLE erythema seems to be improving, swelling seems to be improving. Patient elevating RLE today. CT RLE negative for abscess or osteomyelitis. Will trial gabapentin as patient complaining of shooting pain. Will continue IV antibiotics for next few days before transitioning to oral and then discharge. Subjective Pt was seen and examined in room 355-2. F/U Cellulitis. She complains of 7/10 leg pain R > L. She knows she needs to increase her ambulation. Overall good appetite. She is c/o yeast infection. She typically gets this when she has antibiotics. She denies f/c/s, chest pain, sob, n/v/d. Review of Systems Review of Systems: All systems reviewed & are unremarkable except as noted in HPI & below Physical Exam Physical Exam: Gen: WD/WN, NAD, A&O x3 HEENT: Normocephalic, atraumatic, conjunctivae moist, sclerae anicteric, mucous membranes moist. Lung: Clear to Auscultation bilaterally, no wheezes/rales/rhonchi Heart: Regular rate, regular rhythm, no murmurs, rubs, or gallops Abdomen: Soft, NT, ND +BS x 4 Extremities: b/l lower ext lymphedema nodular with erythema on R, TEDS on L Skin: Warm, no rash, negative turgor. Results & Data Results & Data Vital Signs (Past 12 Hours) Vital Signs Temp Pulse Resp BP Pulse Ox O2 Del Method O2 Flow Rate 02/20/23 08:20 36.6 C 75 16 126/72 96 Nasal Cannula 2 Laboratory Results Short CBC 02/20/23 Range/Units 08:56 WBC 13.44 H (4.8-10.8) K/ul Hgb 12.4 (12.0-16.0) g/dl Hct 39.6 (37.0-47.0) % Plt Count 184 (130-400) K/uL BMP 02/20/23 08:56 Sodium 138 Potassium 3.7 Chloride 100 Carbon Dioxide 31 BUN 14 Creatinine 0.54 L Glucose 125 H Calcium 8.8 I have independently reviewed and interpreted patient's labs including CBC, BMP, & Phos. (1) Lower extremity cellulitis Laterality: unspecified laterality Qualified Code(s): L03.119 - Cellulitis of unspecified part of limb
[2023-02-20] MEDS ORDERED: FLUCONAZOLE 50 MG TAB PO ONE (15:09)
[2023-02-20] MEDS: MELATONIN 3 MG TAB PO SCH (21:03)
[2023-02-20] MEDS: LEVOTHYROXINE SODIUM 125 MCG TABLET PO SCH (21:10)
[2023-02-20] MEDS: GABAPENTIN 100 MG CAP PO SCH (21:10)
[2023-02-20] MEDS: AMITRIPTYLINE HCL 10 MG TAB PO SCH (21:10)
[2023-02-21] MEDS: ACETAMINOPHEN 325 MG TAB PO PRN ×2 (00:58→18:26)
[2023-02-21] MEDS: HYDROmorphone INJ 0.5 MG/0.5 ML SYR IV PRN ×4 (04:09→22:02)
[2023-02-21] MEDS: DAPTOmycin 450 MG in SYRINGE 0 ML IV SCH (06:19)
[2023-02-21] MEDS: KETOROLAC TROMETHAMINE 15 MG/ML VIAL IV PRN ×3 (06:19→19:25)
[2023-02-21] MEDS: ENOXAPARIN INJ 40 MG/0.4 ML SYR SQ SCH (06:19)
[2023-02-21 07:24] LABS: Basophils # (auto) 0.06 K/uL (0.00-0.20); Basophils % (auto) 0.5 %; Eosinophils # (auto) 0.18 K/uL (0.00-0.50); Eosinophils % (auto) 1.5 %; Hematocrit (blood only) 39.7 % (37.0-47.0); Hemoglobin 12.5 g/dl (12.0-16.0); Immature Granulocytes # (auto) 0.32 K/uL (0.01-0.20); Immature Granulocytes % (auto) 2.7 %; Lymphocytes # (auto) 2.78 K/uL (1.20-3.40); Lymphocytes % (auto) 23.7 %; Mean Corpuscular Hemoglobin 28.3 pg (25.0-34.0); Mean Corpuscular Hgb Conc 31.5 g/dL (32.0-36.0); Mean Corpuscular Volume 89.8 fL (80.0-100.0); Mean Platelet Volume 11.6 fL (9.4-12.4); Monocytes # (auto) 0.93 K/uL (0.11-0.59); Monocytes % (auto) 7.9 %; Neutrophils # (auto) 7.45 K/uL (1.40-6.50); Neutrophils % (auto) 63.7 %; Platelet Count 195 K/uL (130-400); RDW Standard Deviation 45.6 fL (36.4-46.3); Red Blood Count 4.42 M/uL (4.20-5.40); White Blood Count 11.72 K/ul (4.8-10.8)
[2023-02-21 07:38] LABS: Calcium 8.8 mg/dl (8.6-10.3); Creatinine Clr Calc Pharmacy 110.7 ml/min; Potassium 3.9 mmol/L (3.5-5.1)
[2023-02-21 08:00] LABS: Appearance Urine Clear (Clear); Bacteria Urine Automated Negative (Negative); Blood Urine Negative (Negative); Color Urine Dark Yellow; Epithelial Cell Urine Auto >30 /lpf (0-5); Glucose Urine UA Negative (Negative); Ketones Urine Negative (Negative); Leukocyte Esterase Urine Trace (Negative); Nitrite Urine Negative (Negative); Protein Urine Trace (Negative); Specific Gravity Urine 1.022 (1.000-1.030); Urobilinogen Urine Negative (Negative)
[2023-02-21 08:11] LABS: Bilirubin Urine 1+ (Negative)
[2023-02-21] MEDS: INSULIN ASPART PER UNIT CHARGE SC SCH ×4 (08:19→20:58)
[2023-02-21] MEDS: CHOLECALCIFEROL 1,000 UNITS 25 MCG TAB PO SCH (08:21)
[2023-02-21] MEDS: FUROSEMIDE 40 MG TAB PO SCH (08:21)
[2023-02-21] MEDS: GABAPENTIN 100 MG CAP PO SCH ×3 (08:22→21:00)
[2023-02-21] MEDS: FAMOTIDINE 20 MG in SYRINGE 3 ML IV SCH ×2 (08:26→21:02)
--- NOTE | 2023-02-21 13:40 | Hospitalist Progress Note ---
Date of Service February 21, 2023 Assessment & Plan (1) Lower extremity cellulitis: Plan: 77-year-old female with past med history significant for diabetes, hypothyroidism, hypertension situational, morbid obesity, irritable bowel syndrome, fibromyalgia comes because of flulike symptoms and right lower extremity cellulitis. Patient says last few days she is having nausea, vomiting and fevers not feeling well and also noticed right ankle is painful and erythematous. She has some runny nose since last Sunday. Appetite is down since last Sunday [employer]. No headache. No cough. No sore throat. No chest pain or shortness of breath. No abdominal pain. No diarrhea. Normal bladder movements. She is being managed for the following: Right lower extremity cellulitis Severe sepsis POA: Secondary to above. WBC/respiratory rate/lactate elevated at presentation. Lactate normalized after IV fluids. Doppler is negative for DVT. Patient was started on IV cefepime and Daptomycin 02/15 -- ID evaled, dc'd cefepime 02/16, c/w dapto MRSA screen neg Improving erythema and tenderness, swelling about the same. Received dose of IV lasix on 02/19 Continue to monitor response to iv atb. Plan to switch to po per id recs on dc to keflex for a total of 14 days Elevated RLE. Pt declined compression stocking to rle. Patient not very much compliant with elevating RLE. CT RLE: Skin thickening and extensive subcutaneous fluid of the right lower leg, ankle and visualized portions of the right foot. This could reflect edema or cellulitis. No fluid collection to suggest abscess on unenhanced exam. No soft tissue gas. gabapentin helping, will increase 100mg to TID Vulvar Candidiasis will give Diflucan 150mg x 1 now and additional dose in 72hrs given duration of antibiotic Other chronic medical conditions: Continue with/resume home meds as and when able Diabetes mellitushold metformin, sliding scale insulin while in hospital, chronic and stable, a1c 6.5 on 02/15 Hypothyroidism, on Synthyroid, continue Lower extremity edema: On Lasix, will resume. DVT prophylaxis: Lovenox Disposition: Med surg. PT/OT, plan to D/C tomorrow after IV antibiotics and d/c on keflex for additional 7 days. Pt was seen and examined in collaboration with Dr. Morales, please see addendum Admission and Anticipated Discharge Date Admission Date: February 14, 2023 Supervising Physician Co-Signing Physician Notes RLE erythema seems to be improving, swelling seems to be improving. Patient elevating RLE now. CT RLE negative for abscess or osteomyelitis. Gabapentin helping with her shooting pain, will increase the dose. Transition to p.o. antibiotic likely tomorrow and DC. I have seen and examined the patient and have discussed the case with the provider above. I agree with the assessment and plan as stated. Subjective Pt was seen and examined in room 355-2. F/U Cellulitis. She continues to have leg pain. She denies f/c/s, chest pain, sob, n/v/d. She is hopeful to stay one more day for IV antibiotics and d/c tomorrow. She felt like she wasn't urinating much yesterday but today had 200ml out. Review of Systems Review of Systems: All systems reviewed & are unremarkable except as noted in HPI & below Physical Exam Physical Exam: Gen: WD/WN, NAD, A&O x3 HEENT: Normocephalic, atraumatic, conjunctivae moist, sclerae anicteric, mucous membranes moist. Lung: Clear to Auscultation bilaterally, no wheezes/rales/rhonchi Heart: Regular rate, regular rhythm, no murmurs, rubs, or gallops Abdomen: Soft, NT, ND +BS x 4 Extremities: b/l lower ext lymphedema nodular with erythema on R, TEDS on L Skin: Warm, no rash, negative turgor. Results & Data Results & Data Vital Signs (Past 12 Hours) Vital Signs Temp Pulse Resp BP Pulse Ox O2 Del Method O2 Flow Rate 02/21/23 12:44 73 94 Nasal Cannula 2 02/21/23 07:35 Room Air, Nasal Cannula 2 02/21/23 07:14 36.5 C 61 16 121/63 94 Nasal Cannula 2 Medications Administered Current Inpatient Medications Acetaminophen (Acetaminophen 325 Mg Tab) 650 mg PO Q4H PRN PRN Reason: Pain or Fever Stop: 03/17/23 01:35 Last Admin: 02/21/23 00:58 Dose: 650 mg Amitriptyline HCl (Amitriptyline Hcl 10 Mg Tab) 10 mg PO HS [facility] Stop: 03/17/23 20:59 Last Admin: 02/20/23 21:10 Dose: 10 mg Dextrose (Dextrose 50% 50 Ml Syringe) 25 - 50 ml IV UD PRN; Protocol PRN Reason: Hypoglycemia Protocol Stop: 03/17/23 01:35 Enoxaparin Sodium (Enoxaparin Inj 40 Mg/0.4 Ml Syr) 40 mg SQ Q24H [facility] Stop: 03/17/23 05:59 Last Admin: 02/21/23 06:19 Dose: 40 mg Fluconazole (Fluconazole 50 Mg Tab) 150 mg PO QAM [facility] Stop: 02/23/23 09:01 Furosemide (Furosemide 40 Mg Tab) 40 mg PO DAILY [facility] Stop: 03/18/23 08:59 Last Admin: 02/21/23 08:21 Dose: 40 mg Gabapentin (Gabapentin 100 Mg Cap) 100 mg PO TID [facility] Stop: 03/23/23 13:59 Glucagon (Glucagon For Inj 1 Mg Vial) 1 mg SQ UD PRN; Protocol PRN Reason: Hypoglycemia Protocol Stop: 03/17/23 01:35 Glucose (Glucose 10 Tab/Tube) 4 - 8 tab PO UD PRN; Protocol PRN Reason: Hypoglycemia Treatment Stop: 03/17/23 01:35 Glucose (Glucose 40% Gel 15 Gm Tube) 15 - 30 gm PO UD PRN; Protocol PRN Reason: Hypoglycemia Protocol Stop: 03/17/23 01:35 Hydromorphone HCl (Hydromorphone Inj 0.5 Mg/0.5 Ml Syr) 0.5 mg IV Q6H PRN PRN Reason: Severe Pain (Scale 7, 8, 9,10) Stop: 03/03/23 01:36 Last Admin: 02/21/23 10:03 Dose: 0.5 mg Daptomycin 450 mg/ Syringe 9 mls @ 4.5 mls/min IV Q24H [facility]; Protocol Stop: 02/22/23 05:59 Last Admin: 02/21/23 06:19 Dose: 4.5 mls/min Famotidine 20 mg/ Syringe 5 mls @ 2.5 mls/min IV BID [facility] Stop: 03/17/23 20:59 Last Admin: 02/21/23 08:26 Dose: 2.5 mls/min Insulin Aspart (Insulin Aspart Per Unit Charge) 0 units SC ACHS [facility] Stop: 03/17/23 07:29 Last Admin: 02/21/23 12:12 Dose: 3 units Ketorolac Tromethamine (Ketorolac Tromethamine 15 Mg/Ml Vial) 15 mg IV Q6H PRN; Protocol PRN Reason: Mod-Sev Pain (Scale 4-10) Stop: 02/25/23 01:35 Last Admin: 02/21/23 12:39 Dose: 15 mg Levothyroxine Sodium (Levothyroxine Sodium 125 Mcg Tablet) 125 mcg PO QPM [facility] Stop: 03/17/23 20:59 Last Admin: 02/20/23 21:10 Dose: 125 mcg Melatonin (Melatonin 3 Mg Tab) 3 mg PO HS [place] Stop: 03/18/23 20:59 Last Admin: 02/20/23 21:03 Dose: 3 mg Miscellaneous (Carbohydrates For Hypoglycemia ) 15 - 30 gm PO UD PRN PRN Reason: Hypoglycemia Protocol Stop: 03/17/23 01:35 Nitroglycerin (Nitroglycerin Sl 0.4 Mg/Tab Tab) 0.4 mg SL Q5M PRN PRN Reason: Chest Pain Stop: 03/17/23 01:35 Polyethylene Glycol (Polyethylene (Miralax) 17 Gm Pack) 17 gm PO DAILY PRN PRN Reason: Constipation Stop: 03/17/23 01:35 Vitamin D (Cholecalciferol 1,000 Units 25 Mcg Tab) 1,000 units PO DAILY [facility] Stop: 03/17/23 08:59 Last Admin: 02/21/23 08:21 Dose: 1,000 units (1) Lower extremity cellulitis Laterality: unspecified laterality Qualified Code(s): L03.119 - Cellulitis of unspecified part of limb
--- NOTE | 2023-02-21 15:45 | XRay Report ---
SINGLE VIEW CHEST CLINICAL HISTORY: Hypoxia FINDINGS: An AP, portable, upright chest radiograph is compared to study dated 02/14/2023 and correla violeta with chest CT dated 11/11/2022. The examination is degraded by portable technique and apical lordo tic positioning. The heart is enlarged. There is mild pulmonary vascular congestion. Chronic intersti tial thickening similar to previous. Scarring/atelectasis is noted at the lung bases. No large pleura l effusion or pneumothorax is identified. The skeletal structures are osteopenic. The bony thorax is grossly intact. IMPRESSION: Cardiomegaly with mild pulmonary vascular congestion. ACT 112: Negative or not required by law. Electronically signed by: Juancarlos Ellsworth M.D. 02/21/2023 3:43 PM
[2023-02-21] MEDS: LEVOTHYROXINE SODIUM 125 MCG TABLET PO SCH (21:00)
[2023-02-21] MEDS: AMITRIPTYLINE HCL 10 MG TAB PO SCH (21:00)
[2023-02-21] MEDS: MELATONIN 3 MG TAB PO SCH (21:02)
[2023-02-22] MEDS: KETOROLAC TROMETHAMINE 15 MG/ML VIAL IV PRN ×2 (02:50→08:55)
[2023-02-22] MEDS: ENOXAPARIN INJ 40 MG/0.4 ML SYR SQ SCH (05:40)
[2023-02-22] MEDS: HYDROmorphone INJ 0.5 MG/0.5 ML SYR IV PRN (05:40)
[2023-02-22] MEDS: INSULIN ASPART PER UNIT CHARGE SC SCH ×2 (08:41→12:48)
[2023-02-22] MEDS: FAMOTIDINE 20 MG in SYRINGE 3 ML IV SCH (08:47)
[2023-02-22] MEDS: CHOLECALCIFEROL 1,000 UNITS 25 MCG TAB PO SCH (08:48)
[2023-02-22] MEDS: FUROSEMIDE 40 MG TAB PO SCH (08:48)
[2023-02-22] MEDS: GABAPENTIN 100 MG CAP PO SCH ×2 (08:48→14:16)
[2023-02-22] MEDS ORDERED: DAPTOmycin 450 MG in SYRINGE 0 ML IV SCH (09:00)
[2023-02-22] MEDS: ACETAMINOPHEN 325 MG TAB PO PRN (12:53)
--- NOTE | 2023-02-22 13:59 | Discharge Summary ---
Discharge Summary Date of Service February 22, 2023 Notes For Next Care Provider Lower extremity cellulitis Medication Changes From Visit Cephalexin 500 mg PO QID until course complete Probiotic daily x 7 days for GI Health. Diflucan 150mg x 1 day Admission HPI Per Admitting Provider 77-year-old female with past med history significant for diabetes, hyp othyroidism, hypertension situational, morbid obesity, irritable bowel syndrome, fibromyalgia comes because of flulike symptoms and right lower EXTR cellulitis. Patient says last few days she is having nausea, vomiting and fevers not feeling well and also noticed right ankle is painful and erythematous. She has some runny nose since last Sunday. Appetite is down since last Sunday. No headache. No cough. No sore throat. No chest pain or shortness of breath. No abdominal pain. No diarrhea. Normal bladder movements. Hemodynamically stable. Past medical history. As mentioned above Past surgical history. Colonoscopy. Colonoscopy with biopsy. Dilatation and curettage. Foot surgery. Bilateral cataracts. Ligation of oviducts. Cholecystectomy. Total abdominal hysterectomy with bilateral salpingo- oophorectomy. Social history. . No smoking. Alcohol rare. No drug use. Family history. Sister had leukemia. Sister has diabetes. Father had hypertension. COPD. Stroke. Mother had hypertension. Parkinson's and dementia. Admission Exam Per Admitting Provider General- Not in distress Head- atraumatic Eyes- PERRL. ENT- oropharynx clear Neck- supple, no JVD. Lungs- clear to auscultation no wheezing or crackles. Heart- regular rhythm; no murmur, no gallop. Abdomen- normal bowel sounds, soft, nontender, no distension. Extremities- b/l lower extremity lymphedema and chronic skin changes seen.Right lower extremity is more swollen and erythematous. Neuro- alert, oriented x 3; PERRL, no facial palsy; no dysarthria; moves extremities. Principal Dx & Hospital Course #1 = Principal Diagnosis (1) Lower extremity cellulitis: (2) Cellulitis of right lower extremity: (3) Lymphedema: (4) Fibromyalgia: (5) History of cholecystectomy: (6) Hypothyroidism: Plan This is a 77-year-old female with past med history significant for diabetes, hypothyroidism, hypertension situational, morbid obesity, irritable bowel syndrome, fibromyalgia comes because of flulike symptoms and right lower extremity cellulitis meeting sepsis criteria. CT lower extremity with no acute fracture. No evidence for osteomyelitis within the right tibia or fibula. Skin thickening and extensive subcutaneous fluid of the right lower leg, ankle and visualized portions of the right foot. This could reflect edema or cellulitis. No fluid collection to suggest abscess on unenhanced exam. No soft tissue gas. Doppler is negative for DVT. Patient was started on IV cefepime and Daptomycin 02/15 and was evalusted by infectious disease with cefepime discontinued on 02/16 and continued on Dapto with recommendation to discharge on Keflex to complete 14 day antibiotic course. Gabapentin increase 100mg to TID (had taken previously) with improved pain control. Also noted to have vulvar candidiasis on exam. Given Diflucan 150 x1 during admission and again in 72 hours. Continue probiotics while on antibiotics. Hemodynamically stable at time of discharge home. Of note, required O2 supplementation intermittently during admission and 2 step was performed showing requirement of 2L NC O2 with ambulation. CM provided patient with script but patient refusing to use on discharge, stating she cannot move around with oxygen. Recommend use and was educated on the risks of not utilizing necessary O2 including respiratory failure and even . Patient states she understands the risks. Discharge Exam Gen: WD/WN, NAD, A&O x3 HEENT: Normocephalic, atraumatic, conjunctivae moist, sclerae anicteric, mucous membranes moist Lung: Clear to Auscultation bilaterally, no wheezes/rales/rhonchi Heart: Regular rate, regular rhythm, no murmurs, rubs, or gallops Abdomen: Soft, NT, ND +BS x 4 Extremities: b/l lower ext lymphedema nodular with erythema on R, TEDS on L Skin: Warm, no rash, negative turgor. Updated Medication List Medication Instructions Recorded Confirmed Type cinnamon bark 500 mg capsule 500 mg PO QAM 03/18/18 02/14/23 History (Cinnamon) levothyroxine 125 mcg tablet 125 mcg PO QPM 03/18/18 02/14/23 History Turmeric Curcumin W/ Bioperine 1,950 mg PO DAILY 03/26/21 02/14/23 History alendronate 70 mg tablet 70 mg PO WK 03/26/21 02/14/23 History bilberry fruit 1,000 mg capsule 1 g PO DAILY 03/26/21 02/14/23 History furosemide 20 mg tablet 40 mg PO DAILY 03/26/21 02/14/23 History metformin 500 mg tablet,extended 500 mg PO QPM 03/26/21 11/11/22 History release 24 hr amitriptyline 10 mg tablet 10 mg PO HS 03/28/21 02/14/23 History cholecalciferol (vitamin D3) 25 25 mcg PO DAILY 03/28/21 02/14/23 History mcg (1,000 unit) tablet (Vitamin D3) Visi Free Cap 1 tab PO BID 09/11/22 02/14/23 History Life Extension Eye Pressure Support 1 cap PO DAILY 11/11/22 02/14/23 History cephalexin 500 mg capsule 500 mg PO QID #28 caps 02/22/23 Rx fluconazole 50 mg tablet 150 mg (3 x 50 mg) PO QAM #3 tabs 02/22/23 Rx gabapentin 100 mg capsule 100 mg PO TID #90 caps 02/22/23 Rx lactobacillus combo no.11 15 1 cap PO DAILY #7 caps 02/22/23 Rx billion cell sprinkle capsule (Probiotic) tramadol 50 mg tablet 50 mg PO Q8H PRN pain #9 tabs 02/22/23 Rx Hospital Stay Data Consultations 02/14/23 21:55 ED Decision to Admit Stat 02/15/23 14:49 Consult Infectious Diseases Routine Diagnostic Imagining Performed 02/14/23 16:53 US venous doppler LE RT Stat 02/19/23 12:06 CT leg [CT tib/fib RT wo con] Routine Pending Results Patient Have Any Pending Studies at Discharge: No Discharge Instructions Given to Patient (Per Discharging Provider) MEDICATION CHANGES: Cefalexin 500 mg PO QID until course complete Probiotic daily x 7 days for GI Health. Diflucan 150mg x 1 day (take tomorrow, 02/23/22) SUMMARY OF TEST RESULTS: You were admitted to hospital for sepsis 2/2 lower extremity cellulitis Doppler is negative for DVT in RLE. Discharging on antibiotics as above to complete 14 day course. PENDING TEST RESULTS: None RECOMMENDATIONS FOR FOLLOW-UP: Follow up with PCP as scheduled. Complete antibiotic in its entirety. Continue medication regimen as scheduled aside from changes noted above. 2 step performed showing patient requires 2L of oxygen NC with ambulation - script provided for you by case management OTHER INSTRUCTIONS: Seek medical attention if you have: * temperature above 101 * chest pain or trouble breathing * abdominal pain, nausea, vomiting * diarrhea, dark stools or bloody stools * any unanswered questions or concerns Call 911 if symptoms are severe. Please take good care of yourself. Call if you have any questions or problems. You can reach a [facility] hospitalist on duty at [facility] 24 hours a day by calling [phone]. Total Time Total Time Spent Total Time Spent (In Minutes): 50 Supervising Physician Co-Signing Physician Notes RLE erythema seems to be improving, swelling seems to be improving. Patient elevating RLE now. CT RLE negative for abscess or osteomyelitis. Gabapentin helping with her shooting pain, uptitrate. Transition to p.o. antibiotic and DC. I have seen and examined the patient and have discussed the case with the provider above. I agree with the assessment and plan as stated.
[2023-02-22] MEDS ORDERED: traMADol HCL 50 MG TABLET PO STA (14:25)
[2023-02-23] MEDS ORDERED: FLUCONAZOLE 50 MG TAB PO SCH (09:00)
== END 2023-02-22 14:46 | disposition home or self-care (01) | DRG 872 ==
LOC: ED 16:26 → EDINP 23:35 → 2N 02-15 01:37 → 3W 02-18 23:25